=== PATIENT | female | born 1960 | race Caucasian/White ===

== ENCOUNTER 2020-11-13 09:15 | Outpatient (CLI) | payer MEDICARE, MEDICAID, SELFPAY | END 2020-11-13 09:16 | disposition home or self-care (01) | LOC: ANHBWCAUD 09:17 | PROVIDERS: PCP Family Medicine; Visit Provider Family Medicine | DX: H90.3 Sensorineural hearing loss, bilateral (principal) | CPT/HCPCS: 92557; 92567 ==

== ENCOUNTER 2021-04-02 09:00 | Outpatient (RCR) | payer MEDICAID, SELFPAY | END 2021-04-06 23:59 | disposition home or self-care (01) | LOC: ANHBWCAUD 09:00 | PROVIDERS: PCP Family Medicine; Visit Provider Family Medicine | DX: Z46.1 Encounter for fitting and adjustment of hearing aid (principal) | CPT/HCPCS: 99199; V5160; V5261; V5264 ==

== ENCOUNTER 2021-06-09 08:47 | Outpatient (RCR) | payer MEDICAID, SELFPAY | END 2021-09-07 23:59 | disposition home or self-care (01) | LOC: ANHBWCAUD 08:47 | PROVIDERS: PCP Family Medicine; Visit Provider Family Medicine | DX: Z46.1 Encounter for fitting and adjustment of hearing aid (principal) | CPT/HCPCS: 99199 ==

== ENCOUNTER 2021-12-15 08:39 | Outpatient (CLI) | payer MEDICARE, MEDICAID, SELFPAY | END 2021-12-15 08:40 | disposition home or self-care (01) | PROVIDERS: PCP Family Medicine; Visit Provider Family Medicine | DX: H90.3 Sensorineural hearing loss, bilateral (principal) | CPT/HCPCS: 92557; 92567 ==

== ENCOUNTER 2022-04-02 10:14 | Outpatient (RCR) | payer MEDICARE, MEDICAID, SELFPAY | END 2022-07-01 23:59 | disposition home or self-care (01) | LOC: ANHBWCAUD 10:14 | PROVIDERS: PCP Family Medicine; Visit Provider Family Medicine | DX: Z46.1 Encounter for fitting and adjustment of hearing aid (principal) | CPT/HCPCS: 99199 ==

== ENCOUNTER 2022-11-30 13:28 | Outpatient (CLI) | payer MEDICARE, MEDICAID, SELFPAY | END 2022-11-30 13:29 | disposition home or self-care (01) | PROVIDERS: PCP Family Medicine; Visit Provider Family Medicine | DX: H90.3 Sensorineural hearing loss, bilateral (principal) | CPT/HCPCS: 92557; 92567 ==

== ENCOUNTER 2024-04-04 10:19 | Outpatient (CLI) | payer MEDICARE, MEDICAID, SELFPAY | END 2024-04-04 10:20 | disposition home or self-care (01) | PROVIDERS: PCP Family Medicine; Visit Provider Family Medicine | DX: H90.3 Sensorineural hearing loss, bilateral (principal) | CPT/HCPCS: 92557; 92567 ==

== ENCOUNTER 2025-05-15 09:08 | Outpatient (CLI) | payer MEDICARE, MEDICAID, SELFPAY ==
--- OUTSIDE RECORDS SUMMARY | 2025-05-15 09:24 | XMS_ITS | Encounter Summary ---
Author Organization [facility] Address [address] [place] [address] Phone Care Team Providers Care Satellite Manager Name Role Phone Vanessa Hyman MD Primary Care Provider + [phone] Tapan Guo MD Unavailable Ted Reyes MD Primary Care Provider [phone] Nani Cloud MD Primary Care Provider + [phone] Provider, None Primary Care Provider John Villatoro MD Primary Care Provider [phone] Encounter Details Date Type Department Care Team (Late st Contact Info) Description 06/16/2022 [facility] 1 [place] [id number] John Delgado MD [address] [place] [address] [address] [place] [address] Encounter for screening for COVID-19 Social History Tobacco Use Types Packs/Day Years Used Date Smoking Tobacco: Never Smokeless Tobacco: Never Alcohol Use Standard Drinks/Week Comments No 0 (1 standard drink = 0.6 oz pur e alcohol) Comments No Sex and Gender Information Value Date Recorded Sex Assigned at Not on file Legal Sex Female 10:37 PM CDT Gender Identity Not on file Sexual Orientation Not on file documented as of this encounter Plan of Treatment Upcoming Encounters Date Type Department Care Team (Late st Contact Info) Description 08/05/2025 2:45 PM CDT [facility] [address] [place] [address] John Delgado MD [address] [place] [address] [address] [place] [address] Discharge Disposition: Discharged to home or Selfcare documented as of this encounter Procedures Procedure Name Priority Date/Time Associated Diagnosis Comments SARS-COV-2 BY MOLECULAR Routine 06/16/2022 7:55 AM CDT Encounter for screening for COVID-19 documented in this encounter Results * SARS-COV-2 BY MOLECULAR (06/16/2022 7:55 AM CDT) SARSCOV2 NOT DETECTED (Referen ce Range for this test is Not Detected ) [facility] THERMOF[facility] FAST DX 06/18/2022 8:08 AM CDT [facility] Comment:This test was perfor med by a RT-PCR method. Other Non-Phlebotomy Collection / Unknown 06/16/2022 7:55 AM CDT 06/16/2022 11:50 AM CDT Narrative [facility] - 06/18/2022 8:08 AM CDT Authorized Fact Sheets about this test for providers and patients are available at: https://www.fda.gov/medical-devices/vtwrkpkmy-nmherivieu-pxgsguf-devices/emergen -us e-authorizations us John Delgado MD MICROBIOLOGY - GENERAL ORDERAB LES Final Result [facility] [address] [place] [address], documented in this encounter Visit Diagnoses Diagnosis Encounter for screening for COVID-19 documented in this encounter Additional Health Concerns Infection Onset Date Last Indicated Resolved Time COVID - 19 03/03/2022 09/01/2022 09/08/2022 8:21 AM IMPROVEMENT AUDITOR COVID - 19 10/20/2022 01/05/2023 01/15/2023 12:1 6 AM CDT documented as of this encounter Care Teams Satellite Manager Relationship Specialty Start Date End Date Vanessa Hyman MD PCP - General Family Medicine 09/01/15 10/23/22 Ted Reyes MD #[address] [address] PCP - General Family Medicine 10/24/22 12/08/23 Nani Cloud MD [address] [place] [address] PCP - General Family Medicine 02/09/24 01/10/25 Provider, None [place] PCP - General 03/25/25 04/10/25 John Delgado MD [address] [place] [address] [address] [place] [address] PCP - General Family Medicine 04/11/25 Tapan Guo MD #[address] [address] Consulting Physician Colon and Rectal Surgery 09/21/22 documented as of this encounter
--- OUTSIDE RECORDS SUMMARY | 2025-05-15 09:24 | XMS_ITS | Encounter Summary ---
Author Organization [facility] Address [address] [place] [address] Phone Care Team Providers Care Social Sciences Instructor Name Role Phone Vanessa Hyman MD Primary Care Provider + [phone] Tapan Guo MD Unavailable Ted Reyes MD Primary Care Provider [phone] Nani Cloud MD Primary Care Provider + [phone] Provider, None Primary Care Provider John Villatoro MD Primary Care Provider [phone] Encounter Details Date Type Department Care Team (Late st Contact Info) Description 03/17/2022 [facility] 1 [place] [phone] John Delgado MD [address] [place] [address] 210 [place] [address] Encounter for screening for COVID-19 Social History [...] Info) Description 08/05/2025 2:45 PM CDT [facility] [address] [place] [address] John Delgado MD [address] [place] [address] [address] [place] [address] Discharge Disposition: Discharged to home or Selfcare documented as of this encounter Procedures Procedure Name Priority Date/Time Associated Diagnosis Comments SARS-COV-2 BY MOLECULAR Routine 03/17/2022 8:54 AM CDT Encounter for screening for COVID-19 documented in this encounter Results * SARS-COV-2 BY MOLECULAR (03/17/2022 8:54 AM CDT) SARSCOV2 NOT DETECTED (Referen ce Range for this test is Not Detected ) [facility] THERMOFISHER FAST DX 03/18/2022 2:01 PM CDT [facility] Comment:This test was perfor med by a RT-PCR method. Other Non-Phlebotomy Collection / Unknown 03/17/2022 8:54 AM CDT 03/17/2022 11:14 AM CDT Narrative [facility] - 03/18/2022 2:01 PM CDT Authorized Fact Sheets about this test for providers and patients are available at: https://www.fda.gov/medical-devices/aymowmiuf-gcxpbistqm-tygtoyg-devices/emergen -us e-authorizations us John Delgado MD MICROBIOLOGY - GENERAL ORDERAB LES Final Result [facility] [address] [place] [address], documented in this encounter Visit Diagnoses Diagnosis Encounter for screening for COVID-19 documented in this encounter Additional Health Concerns Infection Onset Date Last Indicated Resolved Time COVID - 19 03/03/2022 09/01/2022 09/08/2022 8:21 AM PATROL AGENT COVID - 19 10/20/2022 01/05/2023 01/15/2023 12:1 6 AM CDT documented as of this encounter Care Teams Social Sciences Instructor Relationship Specialty Start Date End Date Vanessa Hyman MD PCP - General Family Medicine 09/01/15 10/23/22 Ted Reyes MD #[address] [address] PCP - General Family Medicine 10/24/22 12/08/23 Nani Cloud MD [address] [place] [address] PCP - General Family Medicine 02/09/24 01/10/25 Provider, None [place] PCP - General 03/25/25 04/10/25 John Delgado MD [address] [place] [address] [address] [place] [address] PCP - General Family Medicine 04/11/25 Tapan Guo MD #[address] [address] Consulting Physician Colon and Rectal Surgery 09/21/22 documented as of this encounter
--- OUTSIDE RECORDS SUMMARY | 2025-05-15 09:24 | XMS_ITS | Encounter Summary ---
Author Organization [facility] Address [address] [place] [address] Phone Care Team Providers Care Reproductive Surgeon Name Role Phone Tapan Guo MD Unavailable Ted Reyes MD Primary Care Provider [phone] Nani Cloud MD Primary Care Provider [phone] Provider, None Primary Care Provider John Villatoro MD Primary Care Provider [phone] Encounter Details Date Type Department Care Team (Late st Contact Info) Description 11/03/2022 Lab Requisition [facility] Laboratory Services 1 [place] [address] John Delgado MD [address] [place] [address] [address] [place] [address] Encounter for screening for COVID-19 Social History [...] Info) Description 08/05/2025 2:45 PM CDT [facility]ment [facility] [address] [place] [address] John Delgado MD [address] [facility] [address] [place] [address] Discharge Disposition: Discharged to home or Selfcare documented as of this encounter Procedures Procedure Name Priority Date/Time Associated Diagnosis Comments SARS-COV-2 BY MOLECULAR Routine 11/03/2022 12:40 PM PYROMETER OPERATOR Encounter for screening for COVID-19 documented in this encounter Results * SARS-COV-2 BY MOLECULAR (11/03/2022 12:40 PM PYROMETER OPERATOR) SARSCOV2 NOT DETECTED (Referen ce Range for this test is Not Detected ) [facility] THERMOFISHER FAST DX 11/03/2022 10:53 PM PYROMETER OPERATOR [facility] Comment:This test was perfor med by a RT-PCR method. Other Non-Phlebotomy Collection / Unknown 11/03/2022 12:40 PM PYROMETER OPERATOR 11/03/2022 2:06 PM PYROMETER OPERATOR Narrative [facility] - 11/03/2022 10:53 PM PYROMETER OPERATOR Authorized Fact Sheets about this test for providers and patients are available at: https://www.fda.gov/medical-devices/podalgivo-pfexwqgcmh-nuzmooq-devices/emergen -us e-authorizations John Delgado MD MICROBIOLOGY - GENERAL ORDERAB LES Final Result [facility] [address] [facility] [place] [address], documented in this encounter Visit Diagnoses Diagnosis Encounter for screening for COVID-19 documented in this encounter Additional Health Concerns Infection Onset Date Last Indicated Resolved Time COVID - 19 10/20/2022 01/05/2023 01/15/2023 12:1 6 AM CDT documented as of this encounter Care Teams Reproductive Surgeon Relationship Specialty Start Date End Date Ted Reyes MD [address] [place] [address] PCP - General Family Medicine 10/24/22 12/08/23 Nani Cloud MD [address] [place] [address] PCP - General Family Medicine 02/09/24 01/10/25 Provider, None [place] PCP - General 03/25/25 04/10/25 John Delgado MD [address] [facility] [address] [place] [address] PCP - General Family Medicine 04/11/25 Tapan Guo MD #2 [facility] [address] [place] [address] Consulting Physician Colon and Rectal Surgery 09/21/22 documented as of this encounter
--- OUTSIDE RECORDS SUMMARY | 2025-05-15 09:24 | XMS_ITS | Encounter Summary ---
Author Organization [facility] Address [address] [place] [address] Phone Care Team Providers Care Accounting Professor Name Role Phone Vanessa Hyman MD Primary Care Provider + [phone] Tapan Guo MD Unavailable Ted Reyes MD Primary Care Provider [phone] Nani Cloud MD Primary Care Provider + [phone] Provider, None Primary Care Provider John Villatoro MD Primary Care Provider [phone] Encounter Details Date Type Department Care Team (Late st Contact Info) Description 03/31/2022 [facility] 1 [place] [phone] John Delgado MD [address] [place] [address] [address] [place] [address] Encounter for screening for COVID-19 Social History [...] Info) Description 08/05/2025 2:45 PM CDT [facility] [address] [place] [address] John Delgado MD [address] [place] [address] [address] [place] [address] Discharge Disposition: Discharged to home or Selfcare documented as of this encounter Procedures Procedure Name Priority Date/Time Associated Diagnosis Comments SARS-COV-2 BY MOLECULAR Routine 03/31/2022 9:03 AM CDT Encounter for screening for COVID-19 documented in this encounter Results * SARS-COV-2 BY MOLECULAR (03/31/2022 9:03 AM CDT) SARSCOV2 NOT DETECTED (Referen ce Range for this test is Not Detected ) [facility] THERMOFISHER FAST DX 04/01/2022 6:49 AM CDT [facility] Comment:This test was perfor med by a RT-PCR method. Other Non-Phlebotomy Collection / Unknown 03/31/2022 9:03 AM CDT 03/31/2022 9:02 PM CDT Narrative [facility] - 04/01/2022 6:49 AM CDT Authorized Fact Sheets about this test for providers and patients are available at: https://www.fda.gov/medical-devices/xwdlsjafe-wpyecjrlhq-tlwezfs-devices/emergen -us e-authorizations us John Delgado MD MICROBIOLOGY - GENERAL ORDERAB LES Final Result [facility] [address] [place] [address], documented in this encounter Visit Diagnoses Diagnosis Encounter for screening for COVID-19 documented in this encounter Additional Health Concerns Infection Onset Date Last Indicated Resolved Time COVID - 19 03/03/2022 09/01/2022 09/08/2022 8:21 AM LARGE SHEETFED PRESS OPERATOR COVID - 19 10/20/2022 01/05/2023 01/15/2023 12:1 6 AM CDT documented as of this encounter Care Teams Accounting Professor Relationship Specialty Start Date End Date Vanessa Hyman MD PCP - General Family Medicine 09/01/15 10/23/22 Ted Reyes MD #[address] [address] PCP - General Family Medicine 10/24/22 12/08/23 Nani Cloud MD [address] [place] [address] PCP - General Family Medicine 02/09/24 01/10/25 Provider, None [place] PCP - General 03/25/25 04/10/25 John Delgado MD [address] [place] [address] [address] [place] [address] PCP - General Family Medicine 04/11/25 Tapan Guo MD #[address] [address] Consulting Physician Colon and Rectal Surgery 09/21/22 documented as of this encounter
--- OUTSIDE RECORDS SUMMARY | 2025-05-15 09:24 | XMS_ITS | Encounter Summary ---
Author Organization [facility] Address [address] [place] [address] Phone Care Team Providers Care Crap Game Box Person Name Role Phone Vanessa Hyman MD Primary Care Provider + [phone] Tapan Guo MD Unavailable Ted Reyes MD Primary Care Provider [phone] Nani Cloud MD Primary Care Provider + [phone] Provider, None Primary Care Provider John Villatoro MD Primary Care Provider [phone] Encounter Details Date Type Department Care Team (Late st Contact Info) Description 05/12/2022 [facility] 1 [place] [phone] John Delgado MD [address] [place] [address] [address] [place] [address] Encounter for screening for COVID-19 Social History [...] Info) Description 08/05/2025 2:45 PM CDT [facility] [address] [place] [address] John Delgado MD [address] [place] [address] [address] [place] [address] Discharge Disposition: Discharged to home or Selfcare documented as of this encounter Procedures Procedure Name Priority Date/Time Associated Diagnosis Comments SARS-COV-2 BY MOLECULAR Routine 05/12/2022 8:28 AM CDT Encounter for screening for COVID-19 documented in this encounter Results * SARS-COV-2 BY MOLECULAR (05/12/2022 8:28 AM CDT) SARSCOV2 NOT DETECTED (Referen ce Range for this test is Not Detected ) [facility] THERMOFISH[facility] FAST DX 05/13/2022 7:37 AM CDT [facility] Comment:This test was perfor med by a RT-PCR method. Other Non-Phlebotomy Collection / Unknown 05/12/2022 8:28 AM CDT 05/12/2022 1:51 PM CDT Narrative [facility] - 05/13/2022 7:37 AM CDT Authorized Fact Sheets about this test for providers and patients are available at: https://www.fda.gov/medical-devices/yiemppqnu-otkxkjxpfx-vcnxehb-devices/emergen -us e-authorizations us John Delgado MD MICROBIOLOGY - GENERAL ORDERAB LES Final Result [facility] [address] [place] [address], documented in this encounter Visit Diagnoses Diagnosis Encounter for screening for COVID-19 documented in this encounter Additional Health Concerns Infection Onset Date Last Indicated Resolved Time COVID - 19 03/03/2022 09/01/2022 09/08/2022 8:21 AM SAP CRM DEVELOPER COVID - 19 10/20/2022 01/05/2023 01/15/2023 12:1 6 AM CDT documented as of this encounter Care Teams Crap Game Box Person Relationship Specialty Start Date End Date Vanessa Hyman MD PCP - General Family Medicine 09/01/15 10/23/22 Ted Reyes MD #[address] [address] PCP - General Family Medicine 10/24/22 12/08/23 Nani Cloud MD [address] [place] [address] PCP - General Family Medicine 02/09/24 01/10/25 Provider, None [place] PCP - General 03/25/25 04/10/25 John Delgado MD [address] [place] [address] [address] [place] [address] PCP - General Family Medicine 04/11/25 Tapan Guo MD #[address] [address] Consulting Physician Colon and Rectal Surgery 09/21/22 documented as of this encounter
--- OUTSIDE RECORDS SUMMARY | 2025-05-15 09:24 | XMS_ITS | Encounter Summary ---
Author Organization [facility] Address [address] [place] [address] Phone Care Team Providers Care Brands Editor Name Role Phone Vanessa Hyman MD Primary Care Provider + [phone] Tapan Guo MD Unavailable Ted Reyes MD Primary Care Provider [phone] Nani Cloud MD Primary Care Provider + [phone] Provider, None Primary Care Provider John Villatoro MD Primary Care Provider [phone] Encounter Details Date Type Department Care Team (Late st Contact Info) Description [facility] 1 [place] [phone] John Delgado MD [address] [place] [address] 210 [place] [address] Encounter for screening for COVID-19 Social History [...] Info) Description 08/05/2025 2:45 PM CDT [facility] [address] [place] [address] John Delgado MD [address] [place] [address] [address] [place] [address] Discharge Disposition: Discharged to home or Selfcare documented as of this encounter Procedures Procedure Name Priority Date/Time Associated Diagnosis Comments SARS-COV-2 BY MOLECULAR Routine 11/18/2021 8:09 AM JANITORIAL SUPERVISOR Encounter for screening for COVID-19 documented in this encounter Results * SARS-COV-2 BY MOLECULAR (11/18/2021 8:09 AM JANITORIAL SUPERVISOR) SARSCOV2 NOT DETECTED (Referen ce Range for this test is Not Detected ) [facility] THERMOFISHER FAST DX 11/19/2021 11:10 AM JANITORIAL SUPERVISOR [facility] Comment:This test was perfor med by a RT-PCR method. Other Non-Phlebotomy Collection / Unknown 11/18/2021 8:09 AM JANITORIAL SUPERVISOR 11/18/2021 11:57 AM JANITORIAL SUPERVISOR Narrative [facility] - 11/19/2021 11:10 AM JANITORIAL SUPERVISOR Authorized Fact Sheets about this test for providers and patients are available at: https://www.fda.gov/medical-devices/qhsysttdo-apdfllwwsn-enxtlih-devices/emergen -us e-authorizations us John Delgado MD MICROBIOLOGY - GENERAL ORDERAB LES Final Result [facility] [address] [place] [address], documented in this encounter Visit Diagnoses Diagnosis Encounter for screening for COVID-19 documented in this encounter Additional Health Concerns Infection Onset Date Last Indicated Resolved Time COVID - 19 07/15/2021 12/02/2021 12/02/2021 11:4 9 PM JANITORIAL SUPERVISOR COVID - 19 Confirmed 12/02/2021 12/02/2021 022 12:16 AM JANITORIAL SUPERVISOR COVID - 19 12/16/2021 12/16/2021 01/05/2022 12:1 8 AM CDT COVID - 19 03/03/2022 09/01/2022 09/08/2022 8:21 AM JANITORIAL SUPERVISOR COVID - 19 10/20/2022 01/05/2023 01/15/2023 12:1 6 AM CDT documented as of this encounter Care Teams Brands Editor Relationship Specialty Start Date End Date Vanessa Hyman MD PCP - General Family Medicine 09/01/15 10/23/22 Ted Reyes MD #[address] [address] PCP - General Family Medicine 10/24/22 12/08/23 aNni Cloud MD [address] [place] [address] PCP - General Family Medicine 02/09/24 01/10/25 Provider, None [place] PCP - General 03/25/25 04/10/25 John Delgado MD [address] [place] [address] [address] [place] [address] PCP - General Family Medicine 04/11/25 Tapan Guo MD #[address] [address] Consulting Physician Colon and Rectal Surgery 09/21/22 documented as of this encounter
--- OUTSIDE RECORDS SUMMARY | 2025-05-15 09:24 | XMS_ITS | Encounter Summary ---
Author Organization [facility] Address [address] [place] [address] Phone Care Team Providers Care Bridge Repairer Name Role Phone Vanessa Hyman MD Primary Care Provider + [phone] Tapan Guo MD Unavailable Ted Reyes MD Primary Care Provider [phone] Nani Cloud MD Primary Care Provider + [phone] Provider, None Primary Care Provider John Villatoro MD Primary Care Provider [phone] Encounter Details Date Type Department Care Team (Late st Contact Info) Description 04/07/2022 [facility] 1 [place] [phone] John Delgado MD [address] [place] [address] [address] [place] [address] Encounter for screening for COVID-19 Social History [...] [facility] Mammography [address] [place] [address] John Delgado MD [address] [place] [address] [address] [place] [address] Discharge Disposition: Discharged to home or Selfcare documented as of this encounter Procedures Procedure Name Priority Date/Time Associated Diagnosis Comments SARS-COV-2 BY MOLECULAR Routine 04/07/2022 8:42 AM CDT Encounter for screening for COVID-19 documented in this encounter Results * SARS-COV-2 BY MOLECULAR (04/07/2022 8:42 AM CDT) SARSCOV2 NOT DETECTED (Referen ce Range for this test is Not Detected ) [facility] THERMOFISHER FAST DX 04/08/2022 8:31 AM CDT [facility] Comment:This test was perfor med by a RT-PCR method. Other Non-Phlebotomy Collection / Unknown 04/07/2022 8:42 AM CDT 04/07/2022 9:24 AM CDT Narrative [facility] - 04/08/2022 8:31 AM CDT Authorized Fact Sheets about this test for providers and patients are available at: https://www.fda.gov/medical-devices/ipewyrjvj-eidgwptlgj-qbuvkbg-devices/emergen -us e-authorizations us John Delgado MD MICROBIOLOGY - GENERAL ORDERAB LES Final Result [facility] [address] [place] [address], documented in this encounter Visit Diagnoses Diagnosis Encounter for screening for COVID-19 documented in this encounter Additional Health Concerns Infection Onset Date Last Indicated Resolved Time COVID - 19 03/03/2022 09/01/2022 09/08/2022 8:21 AM CORSET FITTER COVID - 19 10/20/2022 01/05/2023 01/15/2023 12:1 6 AM CDT documented as of this encounter Care Teams Bridge Repairer Relationship Specialty Start Date End Date Vanessa Hyman MD PCP - General Family Medicine 09/01/15 10/23/22 Ted Reyes MD #[address] [address] PCP - General Family Medicine 10/24/22 12/08/23 Nani Cloud MD [address] [place] [address] PCP - General Family Medicine 02/09/24 01/10/25 Provider, None [place] PCP - General 03/25/25 04/10/25 John Delgado MD [address] [place] [address] [address] [place] [address] PCP - General Family Medicine 04/11/25 Tapan Guo MD #[address] [address] Consulting Physician Colon and Rectal Surgery 09/21/22 documented as of this encounter
--- OUTSIDE RECORDS SUMMARY | 2025-05-15 09:24 | XMS_ITS | Encounter Summary ---
Author Organization [facility] Address [address] [place] [address] Phone Care Team Providers Care Pilot Fuel Engineer Name Role Phone Vanessa Hyman MD Primary Care Provider + [phone] Tapan Guo MD Unavailable Ted Reyes MD Primary Care Provider [phone] Nani Cloud MD Primary Care Provider + [phone] Provider, None Primary Care Provider John Villatoro MD Primary Care Provider [phone] Encounter Details Date Type Department Care Team (Late st Contact Info) Description 06/30/2022 [facility] 1 [place] [id number] John Delgado MD [address] [place] [address] [address] [place] [address] Encounter for screening for COVID-19 Social History [...] Info) Description 08/05/2025 2:45 PM CDT [facility]ment [facility] [address] [place] [address] John Delgado MD [address] [place] [address] [address] [place] [address] Discharge Disposition: Discharged to home or Selfcare documented as of this encounter Procedures Procedure Name Priority Date/Time Associated Diagnosis Comments SARS-COV-2 BY MOLECULAR Routine 06/30/2022 8:05 AM CDT Encounter for screening for COVID-19 documented in this encounter Results * SARS-COV-2 BY MOLECULAR (06/30/2022 8:05 AM CDT) SARSCOV2 NOT DETECTED (Referen ce Range for this test is Not Detected ) [facility] THERMOFISHER FAST DX 07/01/2022 8:42 AM CDT [facility] Comment:This test was perfor med by a RT-PCR method. Other COVID 19 Home Health/ Long-Term Facility Collection / Unknown 06/30/2022 8:05 AM CDT 06/30/2022 1:36 PM CDT Narrative [facility] - 07/01/2022 8:42 AM CDT Authorized Fact Sheets about this test for providers and patients are available at: https://www.fda.gov/medical-devices/gtqmltpjs-zdriuwmqlu-dytptnf-devices/emergen cy-us e-authorizations us John Delgado MD MICROBIOLOGY - GENERAL ORDERAB LES Final Result [facility] [address] [place] [address], documented in this encounter Visit Diagnoses Diagnosis Encounter for screening for COVID-19 documented in this encounter Additional Health Concerns Infection Onset Date Last Indicated Resolved Time COVID - 19 03/03/2022 09/01/2022 09/08/2022 8:21 AM MUD PLANT OPERATOR COVID - 19 10/20/2022 01/05/2023 01/15/2023 12:1 6 AM CDT documented as of this encounter Care Teams Pilot Fuel Engineer Relationship Specialty Start Date End Date Vanessa Hyman MD PCP - General Family Medicine 09/01/15 10/23/22 Ted Reyes MD #[address] [address] PCP - General Family Medicine 10/24/22 12/08/23 Nani Cloud MD [address] [facility] [place] [address] PCP - General Family Medicine 02/09/24 01/10/25 Provider, None [place] PCP - General 03/25/25 04/10/25 John Delgado MD [address] [place] [address] [address] [place] [address] PCP - General Family Medicine 04/11/25 Tapan Guo MD #[address] [address] Consulting Physician Colon and Rectal Surgery 09/21/22 documented as of this encounter
--- OUTSIDE RECORDS SUMMARY | 2025-05-15 09:24 | XMS_ITS | Encounter Summary ---
Author Organization [facility] Address [address] [place] [address] Phone Care Team Providers Care Oil And Gas Exploration Technician Name Role Phone Vanessa Hyman MD Primary Care Provider + [phone] Tapan Guo MD Unavailable Ted Reyes MD Primary Care Provider [phone] Nani Cloud MD Primary Care Provider + [phone] Provider, None Primary Care Provider John Villatoro MD Primary Care Provider [phone] Encounter Details Date Type Department Care Team (Late st Contact Info) Description 08/11/2022 [facility] 1 [place] [phone] John Delgado MD [address] [place] [address] [address] [place] [address] Encounter for screening for COVID-19 Social History [...] [facility] M[facility] [address] [place] [place] [address] John Delgado MD [address] [place] [address] [address] [place] [address] Discharge Disposition: Discharged to home or Selfcare documented as of this encounter Procedures Procedure Name Priority Date/Time Associated Diagnosis Comments SARS-COV-2 BY MOLECULAR Routine 08/11/2022 10:07 AM CDT Encounter for screening for COVID-19 documented in this encounter Results * SARS-COV-2 BY MOLECULAR (08/11/2022 10:07 AM CDT) SARSCOV2 NOT DETECTED (Referen ce Range for this test is Not Detected ) [facility] THERMOFISHER FAST DX 08/11/2022 11:59 PM CDT [facility] Comment:This test was perfor med by a RT-PCR method. Other Non-Phlebotomy Collection / Unknown 08/11/2022 10:07 AM CDT 08/11/2022 11:25 AM CDT Narrative [facility] - 08/11/2022 11:59 PM CDT Authorized Fact Sheets about this test for providers and patients are available at: https://www.fda.gov/medical-devices/oepeeopwz-lfvijkkbyl-aipyteg-devices/emergen -us e-authorizations us John Delgado MD MICROBIOLOGY - GENERAL ORDERAB LES Final Result [facility] [address] [place] [address], documented in this encounter Visit Diagnoses Diagnosis Encounter for screening for COVID-19 documented in this encounter Additional Health Concerns Infection Onset Date Last Indicated Resolved Time COVID - 19 03/03/2022 09/01/2022 09/08/2022 8:21 AM BAND SAWYER COVID - 19 10/20/2022 01/05/2023 01/15/2023 12:1 6 AM CDT documented as of this encounter Care Teams Oil And Gas Exploration Technician Relationship Specialty Start Date End Date Vanessa Hyman MD PCP - General Family Medicine 09/01/15 10/23/22 Ted Reyes MD #[address] [address] PCP - General Family Medicine 10/24/22 12/08/23 Nani Cloud MD [address] [place] [address] PCP - General Family Medicine 02/09/24 01/10/25 Provider, None [place] PCP - General 03/25/25 04/10/25 John Delgado MD [address] [place] [address] [address] [place] [address] PCP - General Family Medicine 04/11/25 Tapan Guo MD #[address] [address] Consulting Physician Colon and Rectal Surgery 09/21/22 documented as of this encounter
--- OUTSIDE RECORDS SUMMARY | 2025-05-15 09:24 | XMS_ITS | Encounter Summary ---
Author Organization [facility] Address [address] [place] [address] Phone Care Team Providers Care Medical Researcher Name Role Phone Tapan Guo MD Unavailable Ted Reyes MD Primary Care Provider [phone] Nani Cloud MD Primary Care Provider [phone] Provider, None Primary Care Provider John Villatoro MD Primary Care Provider [phone] Encounter Details Date Type Department Care Team (Late st Contact Info) Description 12/01/[address] [facility] Laboratory Services 1 [place] [address] John Delgado MD [address] [place] [address] [address] [place] [address] Encounter for screening for COVID-19 [...] Info) Description 08/05/2025 2:45 PM CDT [facility] [address] [place] [phone] John Delgado MD [address] [facility] [address] [place] [address] Discharge Disposition: Discharged to home or Selfcare documented as of this encounter Procedures Procedure Name Priority Date/Time Associated Diagnosis Comments SARS-COV-2 BY MOLECULAR Routine 12/01/2022 8:23 AM RECEIVING ROOM CLERK Encounter for screening for COVID-19 documented in this encounter Results * SARS-COV-2 BY MOLECULAR (12/01/2022 8:23 AM RECEIVING ROOM CLERK) SARSCOV2 NOT DETECTED (Referen ce Range for this test is Not Detected ) [facility] THERMOFISHER FAST DX 12/01/2022 7:20 PM RECEIVING ROOM CLERK [facility] Comment:This test was perfor med by a RT-PCR method. Other Non-Phlebotomy Collection / Unknown 12/01/2022 8:23 AM RECEIVING ROOM CLERK 12/01/2022 10:23 AM RECEIVING ROOM CLERK Narrative [facility] - 12/01/2022 7:20 PM RECEIVING ROOM CLERK Authorized Fact Sheets about this test for providers and patients are available at: https://www.fda.gov/medical-devices/cdmuxfrok-ozzsjwvbur-wupbiuz-devices/emergen -us e-authorizations John Delgado MD MICROBIOLOGY - GENERAL ORDERAB LES Final Result [facility] [address] [facility] [place] [address], documented in this encounter Visit Diagnoses Diagnosis Encounter for screening for COVID-19 documented in this encounter Additional Health Concerns Infection Onset Date Last Indicated Resolved Time COVID - 19 10/20/2022 01/05/2023 01/15/2023 12:1 6 AM CDT documented as of this encounter Care Teams Medical Researcher Relationship Specialty Start Date End Date Ted Reyes MD [address] [place] [address] PCP - General Family Medicine 10/24/22 12/08/23 Nani Clodu MD [address] [place] [address] PCP - General Family Medicine 02/09/24 01/10/25 Provider, None [place] PCP - General 03/25/25 04/10/25 John Delgado MD [address] [facility] [address] [place] [address] PCP - General Family Medicine 04/11/25 Tapan Guo MD #2 [facility] [address] [place] [address] Consulting Physician Colon and Rectal Surgery 09/21/22 documented as of this encounter
--- OUTSIDE RECORDS SUMMARY | 2025-05-15 09:24 | XMS_ITS | Encounter Summary ---
Author Organization [facility] Address [address] [place] [address] Phone Care Team Providers Care Carpenter Rough Name Role Phone Vanessa Hyman MD Primary Care Provider + [phone] Tapan Guo MD Unavailable Ted Reyes MD Primary Care Provider [phone] Nani Cloud MD Primary Care Provider + [phone] Provider, None Primary Care Provider John Villatoro MD Primary Care Provider [phone] Encounter Details Date Type Department Care Team (Late st Contact Info) Description 07/21/2022 Lab Requisition [facility] Laboratory Services 1 [place] [address] John Delgado MD [address] [place] [address] [address] [place] [address] Encounter for screening for COVID-19 Social History [...] on file Sexual Orientation Not on file COVID-19 Exposure Response Date Recorded In the last 10 days, have yo u been in contact with someone who was confirmed or suspected to have Coronavirus/COVID-19? No / Unsure 07/04/2022 7:10 AM CDT documented as of this encounter Plan of Treatment Upcoming Encounters Date Type Department Care Team (Late st Contact Info) Description 08/05/2025 2:45 PM CDT [facility] [address] [place] [phone] John Delgado MD [address] [place] [address] [address] [place] [address] Discharge Disposition: Discharged to home or Selfcare documented as of this encounter Procedures Procedure Name Priority Date/Time Associated Diagnosis Comments SARS-COV-2 BY MOLECULAR Routine 07/21/2022 10:08 AM CDT Encounter for screening for COVID-19 documented in this encounter Results * SARS-COV-2 BY MOLECULAR (07/21/2022 10:08 AM CDT) SARSCOV2 NOT DETECTED (Referen ce Range for this test is Not Detected ) [facility] THERMOFISHER FAST DX 07/22/2022 12:09 AM CDT [facility] Comment:This test was perfor med by a RT-PCR method. Other Non-Phlebotomy Collection / Unknown 07/21/2022 10:08 AM CDT 07/21/2022 11:59 AM CDT Narrative [facility] - 07/22/2022 12:09 AM CDT Authorized Fact Sheets about this test for providers and patients are available at: https://www.fda.gov/medical-devices/cqfrqbclg-ggyscumvnt-zzwohtp-devices/emergen cy-us e-authorizations us John Delgado MD MICROBIOLOGY - GENERAL ORDERAB LES Final Result [facility] [address] [place] [address], [place] documented in this encounter Visit Diagnoses Diagnosis Encounter for screening for COVID-19 documented in this encounter Additional Health Concerns Infection Onset Date Last Indicated Resolved Time COVID - 19 03/03/2022 09/01/2022 09/08/2022 8:21 AM ROLLING MACHINE TENDER COVID - 19 10/20/2022 01/05/2023 01/15/2023 12:1 6 AM CDT documented as of this encounter Care Teams Carpenter Rough Relationship Specialty Start Date End Date Vanessa Hyman MD PCP - General Family Medicine 09/01/15 10/23/22 Ted Reyes MD #[address] [address] PCP - General Family Medicine 10/24/22 12/08/23 Nani Cloud MD [address] [place] [address] PCP - General Family Medicine 02/09/24 01/10/25 Provider, None [place] PCP - General 03/25/25 04/10/25 John Delgado MD [address] [place] [address] [address] [place] [address] PCP - General Family Medicine 04/11/25 Tapan Guo MD #[address] [address] Consulting Physician Colon and Rectal Surgery 09/21/22 documented as of this encounter
--- OUTSIDE RECORDS SUMMARY | 2025-05-15 09:24 | XMS_ITS | Encounter Summary ---
Author Organization [facility] Address [address] [place] [address] Phone Care Team Providers Care Matrix Supervisor Name Role Phone Tapan Guo MD Unavailable Ted Reyes MD Primary Care Provider [phone] Nani Cloud MD Primary Care Provider [phone] Provider, None Primary Care Provider John Villatoro MD Primary Care Provider [phone] Encounter Details Date Type Department Care Team (Late st Contact Info) Description 12/29/2022 Lab Requisition [facility] Laboratory Services 1 [place] [address] John Delgado MD [address] [place] [address] [address] [place] [address] Encounter for screening for COVID-19 [...] suspected to have Coronavirus/COVID-19? No / Unsure 12/06/2022 10:30 AM TWISTING OPERATOR documented as of this encounter Plan of Treatment Upcoming Encounters Date Type Department Care Team (Late st Contact Info) Description 08/05/2025 2:45 PM CDT [facility] [address] [place] [address] John Delgado MD [address] [place] [address] [address] [place] [address] Discharge Disposition: Discharged to home or Selfcare documented as of this encounter Procedures Procedure Name Priority Date/Time Associated Diagnosis Comments SARS-COV-2 BY MOLECULAR Routine 12/29/2022 8:25 AM TWISTING OPERATOR Encounter for screening for COVID-19 documented in this encounter Results * SARS-COV-2 BY MOLECULAR (12/29/2022 8:25 AM TWISTING OPERATOR) SARSCOV2 NOT DETECTED (Referen ce Range for this test is Not Detected ) [facility] THERMOFISHER FAST DX 12/29/2022 7:37 PM TWISTING OPERATOR [facility] Comment:This test was perfor med by a RT-PCR method. Other No Phlebotomy Charged / Unknown 12/29/2022 8:25 AM TWISTING OPERATOR 12/29/2022 9:57 AM TWISTING OPERATOR [facility]ative [facility] - 12/29/2022 7:37 PM TWISTING OPERATOR Authorized Fact Sheets about this test for providers and patients are available at: https://www.fda.gov/medical-devices/jxveosefm-idouduyhrx-gvdieyw-devices/emergen -us e-authorizations us John Delgado MD MICROBIOLOGY - GENERAL ORDERAB LES Final Result [facility] [address] [place] [address], documented in this encounter Visit Diagnoses Diagnosis Encounter for screening for COVID-19 documented in this encounter Additional Health Concerns Infection Onset Date Last Indicated Resolved Time COVID - 19 10/20/2022 01/05/2023 01/15/2023 12:1 6 AM CDT documented as of this encounter Care Teams Matrix Supervisor Relationship Specialty Start Date End Date Ted Reyes MD #[address] [address] PCP - General Family Medicine 10/24/22 12/08/23 Nani Cloud MD [address] [place] [address] PCP - General Family Medicine 02/09/24 01/10/25 Provider, None [place] PCP - General 03/25/25 04/10/25 John Delgado MD [address] [place] [address] [address] [place] [address] PCP - General Family Medicine 04/11/25 Tapan Guo MD #[address] [address] Consulting Physician Colon and Rectal Surgery 09/21/22 documented as of this encounter
--- OUTSIDE RECORDS SUMMARY | 2025-05-15 09:24 | XMS_ITS | Encounter Summary ---
Author Organization [facility] Address [address] [place] [address] Phone Care Team Providers Care Automatic Glove Former Name Role Phone Tapan Guo MD Unavailable Nani Cloud MD Primary Care Provider [phone] Provider, None Primary Care Provider John Villatoro MD Primary Care Provider [phone] Encounter Details Date Type Department Care Team (Late st Contact Info) Description 01/09/2025 Lab Requisition [facility] Laboratory Services 1 [place] [address] John Delgado MD [address] [place] [address] [address] [place] [address] Constipation, unspecified; Mild intellectual disabilities; Hypothyroidism, unspecified Social History Tobacco Use Types Packs/Day Years [...] Info) Description 08/05/2025 2:45 PM CDT [facility] 1 [place] [phone] John Delgado MD [address] [place] [address] [address] [place] [address] Discharge Disposition: Discharged to home or Selfcare documented as of this encounter Procedures Procedure Name Priority Date/Time Associated Diagnosis Comments CBC WITH AUTO DIFFERENTIAL Routine 01/09/2025 5:55 AM CDT Constipation, unspecified Mild intellectual disabilities Hypothyroidism, unspecified COMPLETE BLOOD COUNT (CBC) WITH DIFF Routine 01/09/2025 5:55 AM CDT Constipation, unspecified Mild intellectual disabilities Hypothyroidism, unspecified BASIC METABOLIC PANEL W/ CALCIUM TOTAL Routine 01/09/2025 5:55 AM CDT Constipation, unspecified Mild intellectual disabilities Hypothyroidism, unspecified documented in this encounter Results * CBC WITH AUTO DIFFERENTIAL (01/09/2025 5:55 AM CDT) WBC 6.73 4.00 - 12.00 10(3)/mcL 01/09/2025 8:33 AM CDT [facility] RBC 4.80 3.80 - 5.30 10(6)/mcL 01/09/2025 8:33 AM CDT [facility] HEMOGLOBIN (HGB) 14.1 12.0 - 15.8 g/dL 01/09/2025 8:33 AM CDT [facility] HEMATOCRIT (HCT) 44.3 36.0 - 47.0 % 01/09/2025 8:33 AM CDT [facility] MCV 92.3 82.0 - 96.0 fL 01/09/2025 8:33 AM CDT [facility] MCH 29.4 26.0 - 34.0 pg 01/09/2025 8:33 AM CDT [facility] MCHC 31.8 31.0 - 36.0 g/dL 01/09/2025 8:33 AM CDT [facility] PLATELET COUNT 268 140 - 440 10(3)/mcL 01/09/2025 8:33 AM CDT [facility] RDW 13.4 11.8 - 15.5 % 01/09/2025 8:33 AM CDT [facility] MPV 10.9 9.7 - 12.4 fL 01/09/2025 8:33 AM CDT [facility] NEUTROPHILS 49.3 47.0 - 73.0 % 01/09/2025 8:33 AM CDT [facility] LYMPHOCYTES 36.3 18.0 - 42.0 % 01/09/2025 8:33 AM CDT [facility] MONOCYTES 9.1 4.0 - 12.0 % 01/09/2025 8:33 AM CDT [facility] EOSINOPHILS 4.6 0.0 - 5.0 % 01/09/2025 8:33 AM CDT [facility] BASOPHILS 0.7 0.0 - 1.0 % 01/09/2025 8:33 AM CDT [facility] ABSOLUTE NEUTROPHILS 3.32 1.60 - 7.70 10(3)/[facility] 01/09/2025 8:33 AM CDT [facility] ABSOLUTE LYMPHOCYTES 2.44 1.30 - 3.20 10(3)/[facility] 01/09/2025 8:33 AM CDT [facility] ABSOLUTE MONOCYTES 0.61 0.20 - 1.00 10(3)/[facility] 01/09/2025 8:33 AM CDT [facility] ABSOLUTE EOSINOPHIL 0.31 0.00 - 0.40 10(3)/[facility] 01/09/2025 8:33 AM CDT [facility] ABSOLUTE BASOPHILS 0.05 0.00 - 0.10 10(3)/[facility] 01/09/2025 8:33 AM CDT [facility] NRBC PER 100 WBC 0 01[facility]10[facility]20 [facility] Blood Venipuncture / Unknown 01/09/2025 5:55 AM CDT 01/09/2025 7:58 AM CDT us John Delgado MD HEMATOLOGY ORDERABLES Final Re sult [facility] [address] [place] [address] * (ABNORMAL) BASIC METABOLIC PANEL W/ CALCIUM TOTAL (01/09/2025 5:55 AM CDT) SODIUM 140 136 - 145 mmol/L 01/09/2025 9:00 AM CDT [facility] POTASSIUM 4.7 3.5 - 5.1 mmol/L 01/09/2025 9:00 AM CDT [facility] CHLORIDE 105 98 - 107 mmol/L 01/09/2025 9:00 AM CDT [facility] CO2, VENOUS 26 22 - 30 mmol/L 01/09/2025 9:00 AM CDT [facility] ANION GAP 13.7 <18.0 mmol/L 01/09/2025 9:00 AM CDT [facility] GLUCOSE 84 70 - 99 mg/dL 01/09/2025 9:00 AM CDT [facility] BUN 19 10 - 20 mg/dL 01/09/2025 9:00 AM CDT [facility] CREATININE, BLOOD 0.81 0.60 - 1.00 mg/dL 01/09/2025 9:00 AM CDT [facility] BUN/CREATININE RATIO 23(H) 12 - 20 ratio 01/09/2025 9:00 AM CDT [facility] CALCIUM 9.1 8.7 - 10.5 mg/dL 01/09/2025 9:00 AM CDT [facility] GFR, ESTIMATED >60 >=60 01/09/2025 9:00 AM CDT [facility] Comment: Creatinine Clearance is the preferred criteria for selecting drug dose adjustments in renally impaired patients. The GFR is provided as additional pertinent clinical information. GFR is reported in mL/min/1.73 sq m. Calculation based on the Chronic Kidney Disease Epidemiology Collaboration (CKD- EPI) equation refit without adjustment for race. GFR, EST. >60 >=60 025 9:[address] AM [address] [facility] GFR, EST. NONAFRICAN >60 >=60 01/09/2025 9:00 AM CD[address] [facility] Blood Venipuncture / Unknown 01/09/2025 5:55 AM CDT 01/09/2025 7:58 AM CDT us John Delgado MD CHEMISTRY ORDERABLES Final Res ult [facility] [address] [place] [address] documented in this encounter Visit Diagnoses Diagnosis Constipation, unspecified Mild intellectual disabilities Hypothyroidism, unspecified documented in this encounter Care Teams Automatic Glove Former Relationship Specialty Start Date End Date Nani Cloud MD [address] [place] [address] PCP - General Family Medicine 02/09/24 01/10/25 Provider, None [place] PCP - General 03/25/25 04/10/25 John Delgado MD [address] [facility] [address] [place] [address] PCP - General Family Medicine 04/11/25 Tapan Guo MD [facility] [facility] [place] [address] [place] [address] Consulting Physician Colon and Rectal Surgery 09/21/22 documented as of this encounter
--- OUTSIDE RECORDS SUMMARY | 2025-05-15 09:24 | XMS_ITS | Encounter Summary ---
Author Organization [facility] Address [address] [place] [address] Phone Care Team Providers Care Hardwood Floor Installer Name Role Phone Tapan Guo MD Unavailable Ted Reyes MD Primary Care Provider [phone] Nani Cloud MD Primary Care Provider [phone] Provider, None Primary Care Provider John Villatoro MD Primary Care Provider Encounter Details Date Type Department Care Team (Late st Contact Info) Description 11/24/2022 Lab Requisition [facility] Laboratory Services 1 [place] [address] John Delgado MD [address] [place] [address] [address] [place] [address] Encounter for screening for COVID-19 [...] Info) Description 08/05/2025 2:45 PM CDT [facility] [address] [place] [address] John Delgado MD [address] [facility] [address] [place] [address] Discharge Disposition: Discharged to home or Selfcare documented as of this encounter Procedures Procedure Name Priority Date/Time Associated Diagnosis Comments SARS-COV-2 BY MOLECULAR Routine 11/24/2022 8:30 AM ANIMAL DAYCARE PROVIDER Encounter for screening for COVID-19 documented in this encounter Results * SARS-COV-2 BY MOLECULAR (11/24/2022 8:30 AM ANIMAL DAYCARE PROVIDER) SARSCOV2 NOT DETECTED (Referen ce Range for this test is Not Detected ) [facility] THERMOFISHER FAST DX 11/24/2022 10:10 PM ANIMAL DAYCARE PROVIDER [facility] Comment:This test was perfor med by a RT-PCR method. Other Non-Phlebotomy Collection / Unknown 11/24/2022 8:30 AM ANIMAL DAYCARE PROVIDER 11/24/2022 9:58 AM ANIMAL DAYCARE PROVIDER Narrative [facility] - 11/24/2022 10:10 PM ANIMAL DAYCARE PROVIDER Authorized Fact Sheets about this test for providers and patients are available at: https://www.fda.gov/medical-devices/ieyrzgqwc-fbkyfmnpto-opbsbgy-devices/emergen -us e-authorizations John Delgado MD MICROBIOLOGY - GENERAL ORDERAB LES Final Result [facility] [address] [facility] [place] [address], documented in this encounter Visit Diagnoses Diagnosis Encounter for screening for COVID-19 documented in this encounter Additional Health Concerns Infection Onset Date Last Indicated Resolved Time COVID - 19 10/20/2022 01/05/2023 01/15/2023 12:1 6 AM CDT documented as of this encounter Care Teams Hardwood Floor Installer Relationship Specialty Start Date End Date Ted Reyes MD [address] [place] [address] PCP - General Family Medicine 10/24/22 12/08/23 Nani Cloud MD [address] [place] [address] PCP - General Family Medicine 02/09/24 01/10/25 Provider, None [place] PCP - General 03/25/25 04/10/25 John Delgado MD [address] [facility] [address] [place] [address] PCP - General Family Medicine 04/11/25 Tapan Guo MD #2 [facility] NORI [facility] [address] [place] [address] Consulting Physician Colon and Rectal Surgery 09/21/22 documented as of this encounter
--- OUTSIDE RECORDS SUMMARY | 2025-05-15 09:24 | XMS_ITS | Encounter Summary ---
Author Organization [facility] Address [address] [place] [address] Phone Care Team Providers Care Drop Hammer Mechanic Name Role Phone Vanessa Hyman MD Primary Care Provider [phone] Tapan Guo MD Unavailable Ted Reyes MD Primary Care Provider [phone] Nani Cloud MD Primary Care Provider + [phone] Provider, None Primary Care Provider John Villatoro MD Primary Care Provider [phone] Encounter Details Date Type Department Care Team (Late st Contact Info) Description 05/05/2022 [facility] 1 [place] [id number] John Delgado MD [address] [place] [address] [address] [place] [address] Encounter for screening for COVID-19 Social History [...] Info) Description 08/05/2025 2:45 PM CDT [facility] [address] [place] [address] John Delgado MD [address] [place] [address] [address] [place] [address] Discharge Disposition: Discharged to home or Selfcare documented as of this encounter Procedures Procedure Name Priority Date/Time Associated Diagnosis Comments SARS-COV-2 BY MOLECULAR Routine 05/05/2022 8:19 AM CDT Encounter for screening for COVID-19 documented in this encounter Results * SARS-COV-2 BY MOLECULAR (05/05/2022 8:19 AM CDT) SARSCOV2 NOT DETECTED (Referen ce Range for this test is Not Detected ) [facility] THERMOFISHER FAST DX 05/06/2022 10:49 AM CDT [facility] Comment:This test was perfor med by a RT-PCR method. Other Non-Phlebotomy Collection / Unknown 05/05/2022 8:19 AM CDT 05/05/2022 10:44 AM CDT Narrative [facility] - 05/06/2022 10:49 AM CDT Authorized Fact Sheets about this test for providers and patients are available at: https://www.fda.gov/medical-devices/nucgaetmc-puxjjanzcm-estroqc-devices/emergen -us e-authorizations us John Delgado MD MICROBIOLOGY - GENERAL ORDERAB LES Final Result [facility] [address] [place] [address], documented in this encounter Visit Diagnoses Diagnosis Encounter for screening for COVID-19 documented in this encounter Additional Health Concerns Infection Onset Date Last Indicated Resolved Time COVID - 19 03/03/2022 09/01/2022 09/08/2022 8:21 AM READING INTERVENTION TEACHER COVID - 19 10/20/2022 01/05/2023 01/15/2023 12:1 6 AM CDT documented as of this encounter Care Teams Drop Hammer Mechanic Relationship Specialty Start Date End Date Vanessa Hyman MD PCP - General Family Medicine 09/01/15 10/23/22 Ted Reyes MD #[address] [address] PCP - General Family Medicine 10/24/22 12/08/23 Nani Cloud MD [address] [place] [address] PCP - General Family Medicine 02/09/24 01/10/25 Provider, None [place] PCP - General 03/25/25 04/10/25 John Delgado MD [address] [place] [address] [address] [place] [address] PCP - General Family Medicine 04/11/25 Tapan Guo MD #[address] [address] Consulting Physician Colon and Rectal Surgery 09/21/22 documented as of this encounter
--- OUTSIDE RECORDS SUMMARY | 2025-05-15 09:24 | XMS_ITS | Encounter Summary ---
Author Organization [facility] Address [address] [place] [address] Phone Care Team Providers Care Computer Operations Specialist Name Role Phone Tapan Guo MD Unavailable Ted Reyes MD Primary Care Provider Nani Cloud MD Primary Care Provider [phone] Provider, None Primary Care Provider John Villatoro MD Primary Care Provider [phone] Encounter Details Date Type Department Care Team (Late st Contact Info) Description 11/18/2022 Lab Requisition [facility] Laboratory Services 1 [place] [address] John Delgado MD [address] [place] [address] [address] [place] [address] Encounter for screening for COVID-19 [...] Description 08/05/2025 2:45 PM CDT [facility] [address] [place] [address] John Delgado MD [address] [facility] [address] [place] [address] Discharge Disposition: Discharged to home or Selfcare documented as of this encounter Procedures Procedure Name Priority Date/Time Associated Diagnosis Comments SARS-COV-2 BY MOLECULAR Routine 11/18/2022 8:40 AM TELECOM SPECIALIST Encounter for screening for COVID-19 documented in this encounter Results * SARS-COV-2 BY MOLECULAR (11/18/2022 8:40 AM TELECOM SPECIALIST) SARSCOV2 NOT DETECTED (Referen ce Range for this test is Not Detected ) [facility] THERMOFISHER FAST DX 11/18/2022 5:12 PM TELECOM SPECIALIST [facility] Comment:This test was perfor med by a RT-PCR method. Other Non-Phlebotomy Collection / Unknown 11/18/2022 8:40 AM TELECOM SPECIALIST 11/18/2022 10:13 AM TELECOM SPECIALIST Narrative [facility] - 11/18/2022 5:12 PM TELECOM SPECIALIST Authorized Fact Sheets about this test for providers and patients are available at: https://www.fda.gov/medical-devices/khibnfqzk-rqvfkwgmzm-wlegzcz-devices/emergen -us e-authorizations John Delgado MD MICROBIOLOGY - GENERAL ORDERAB LES Final Result [facility] [address] [place] [address], documented in this encounter Visit Diagnoses Diagnosis Encounter for screening for COVID-19 documented in this encounter Additional Health Concerns Infection Onset Date Last Indicated Resolved Time COVID - 19 10/20/2022 01/05/2023 01/15/2023 12:1 6 AM CDT documented as of this encounter Care Teams Computer Operations Specialist Relationship Specialty Start Date End Date Ted Reyes MD #[address] [place] [address] PCP - General Family Medicine 10/24/22 12/08/23 Nani Cloud MD [address] [place] [address] PCP - General Family Medicine 02/09/24 01/10/25 Provider, None [place] PCP - General 03/25/25 04/10/25 John Delgado MD [address] [facility] [address] [place] [address] PCP - General Family Medicine 04/11/25 Tapan Guo MD #2 [facility] NORI [facility] [address] [place] [address] Consulting Physician Colon and Rectal Surgery 09/21/22 documented as of this encounter
--- OUTSIDE RECORDS SUMMARY | 2025-05-15 09:24 | XMS_ITS | Encounter Summary ---
Author Organization [facility] Address [address] [place] [address] Phone Care Team Providers Care Laboratory Scientist Name Role Phone Vanessa Hyman MD Primary Care Provider [phone] Tapan Guo MD Unavailable Ted Reyes MD Primary Care Provider [phone] Nani Cloud MD Primary Care Provider + [phone] Provider, None Primary Care Provider John Villatoro MD Primary Care Provider [phone] Encounter Details Date Type Department Care Team (Late st Contact Info) Description 04/14/2022 [facility] 1 [place] [phone] John Delgado MD [address] [place] [address] [address] [place] [address] Encounter for screening for COVID-19 Social History [...] 08/05/2025 2:45 PM CDT [facility] [address] [place] [address] John Delgado MD [address] [place] [address] [address] [place] [address] Discharge Disposition: Discharged to home or Selfcare documented as of this encounter Procedures Procedure Name Priority Date/Time Associated Diagnosis Comments SARS-COV-2 BY MOLECULAR Routine 04/14/2022 8:30 AM CDT Encounter for screening for COVID-19 documented in this encounter Results * SARS-COV-2 BY MOLECULAR (04/14/2022 8:30 AM CDT) SARSCOV2 NOT DETECTED (Referen ce Range for this test is Not Detected ) [facility] THERMOFISHER FAST DX 04/15/2022 9:52 AM CDT [facility] Comment:This test was perfor med by a RT-PCR method. Other Non-Phlebotomy Collection / Unknown 04/14/2022 8:30 AM CDT 04/14/2022 10:48 AM CDT Narrative [facility] - 04/15/2022 9:52 AM CDT Authorized Fact Sheets about this test for providers and patients are available at: https://www.fda.gov/medical-devices/xecbxahmy-fmvezffhhr-iyswfrx-devices/emergen -us e-authorizations us John Delgado MD MICROBIOLOGY - GENERAL ORDERAB LES Final Result [facility] [address] [place] [address], documented in this encounter Visit Diagnoses Diagnosis Encounter for screening for COVID-19 documented in this encounter Additional Health Concerns Infection Onset Date Last Indicated Resolved Time COVID - 19 03/03/2022 09/01/2022 09/08/2022 8:21 AM HEAD CUSTODIAN COVID - 19 10/20/2022 01/05/2023 01/15/2023 12:1 6 AM CDT documented as of this encounter Care Teams Laboratory Scientist Relationship Specialty Start Date End Date Vanessa Hyman MD PCP - General Family Medicine 09/01/15 10/23/22 Ted Reyes MD #[address] [address] PCP - General Family Medicine 10/24/22 12/08/23 Nani Cloud MD [address] [place] [address] PCP - General Family Medicine 02/09/24 01/10/25 Provider, None [place] PCP - General 03/25/25 04/10/25 John Delgado MD [address] [place] [address] [address] [place] [address] PCP - General Family Medicine 04/11/25 Tapan Guo MD #[address] [address] Consulting Physician Colon and Rectal Surgery 09/21/22 documented as of this encounter
--- OUTSIDE RECORDS SUMMARY | 2025-05-15 09:24 | XMS_ITS | Encounter Summary ---
Author Organization [facility] Address [address] [place] [address] Phone Care Team Providers Care Molten Iron Pourer Name Role Phone Vanessa Hyman MD Primary Care Provider [phone] Tapan Guo MD Unavailable Ted Reyes MD Primary Care Provider [phone] Nani Cloud MD Primary Care Provider + [phone] Provider, None Primary Care Provider John Villatoro MD Primary Care Provider [phone] Encounter Details Date Type Department Care Team (Late st Contact Info) Description 10/20/2022 Lab Requisition [facility] Laboratory Services 1 [place] [address] John Delgado MD [address] [place] [address] [address] [place] [address] Encounter for screening for COVID-19 Social History [...] suspected to have Coronavirus/COVID-19? No / Unsure 09/29/2022 9:55 AM RAG CUTTING MACHINE TENDER documented as of this encounter Plan of Treatment Upcoming Encounters Date Type Department Care Team (Late st Contact Info) Description 08/05/2025 2:45 PM CDT [facility] [address] [place] [address] John Delgado MD [address] [place] [address] [facility] [address] [place] [address] Discharge Disposition: Discharged to home or Selfcare documented as of this encounter Procedures Procedure Name Priority Date/Time Associated Diagnosis Comments SARS-COV-2 BY MOLECULAR Routine 10/20/2022 8:19 AM RAG CUTTING MACHINE TENDER Encounter for screening for COVID-19 documented in this encounter Results * SARS-COV-2 BY MOLECULAR (10/20/2022 8:19 AM RAG CUTTING MACHINE TENDER) SARSCOV2 NOT DETECTED (Referen ce Range for this test is Not Detected ) [facility] THERMOFISHER FAST DX 10/21/2022 12:33 AM RAG CUTTING MACHINE TENDER [facility] Comment:This test was perfor med by a RT-PCR method. Other Non-Phlebotomy Collection / Unknown 10/20/2022 8:19 AM RAG CUTTING MACHINE TENDER 10/20/2022 2:27 PM RAG CUTTING MACHINE TENDER Narrative [facility] - 10/21/2022 12:33 AM RAG CUTTING MACHINE TENDER Authorized Fact Sheets about this test for providers and patients are available at: https://www.fda.gov/medical-devices/ayjhecxly-lwxolmexap-tshrumk-devices/emergen cy-us e-authorizations us John Delgado MD MICROBIOLOGY - GENERAL ORDERAB LES Final Result [facility] [address] [place] [address], [place] documented in this encounter Visit Diagnoses Diagnosis Encounter for screening for COVID-19 documented in this encounter Additional Health Concerns Infection Onset Date Last Indicated Resolved Time COVID - 19 10/20/2022 01/05/2023 01/15/2023 12:1 6 AM CDT documented as of this encounter Care Teams Molten Iron Pourer Relationship Specialty Start Date End Date Vanessa Hyman MD PCP - General Family Medicine 09/01/15 10/23/22 Ted Reyes MD #[address] [address] PCP - General Family Medicine 10/24/22 12/08/23 Nani Cloud MD [address] [place] [address] PCP - General Family Medicine 02/09/24 01/10/25 Provider, None [place] PCP - General 03/25/25 04/10/25 John Delgado MD [address] [place] [address] [address] [place] [address] PCP - General Family Medicine 04/11/25 Tapan Guo MD #[address] [address] Consulting Physician Colon and Rectal Surgery 09/21/22 documented as of this encounter
--- OUTSIDE RECORDS SUMMARY | 2025-05-15 09:24 | XMS_ITS | Encounter Summary ---
Author Organization [facility] Address [address] [place] [address] Phone Care Team Providers Care Bulb Grader Name Role Phone Tapan Guo MD Unavailable Ted Reyes MD Primary Care Provider [phone] Nani Cloud MD Primary Care Provider [phone] Provider, None Primary Care Provider John Villatoro MD Primary Care Provider [phone] Encounter Details Date Type Department Care Team (Late st Contact Info) Description 11/10/2022 Lab Requisition [facility] Laboratory Services 1 [place] [address] John Delgado MD [address] [place] [address] [address] [place] [address] Encounter for screening for COVID-19 [...] Info) Description 08/05/2025 2:45 PM CDT [facility] [address] [place] [address] John Delgado MD [address] [facility] [address] [place] [address] Discharge Disposition: Discharged to home or Selfcare documented as of this encounter Procedures Procedure Name Priority Date/Time Associated Diagnosis Comments SARS-COV-2 BY MOLECULAR Routine 11/10/2022 8:19 AM TURPENTINE FARMER Encounter for screening for COVID-19 documented in this encounter Results * SARS-COV-2 BY MOLECULAR (11/10/2022 8:19 AM TURPENTINE FARMER) SARSCOV2 NOT DETECTED (Referen ce Range for this test is Not Detected ) [facility] THERMOFISHER FAST DX 11/10/2022 10:41 PM TURPENTINE FARMER [facility] Comment:This test was perfor med by a RT-PCR method. Other Non-Phlebotomy Collection / Unknown 11/10/2022 8:19 AM TURPENTINE FARMER 11/10/2022 2:48 PM TURPENTINE FARMER Narrative [facility] - 11/10/2022 10:41 PM TURPENTINE FARMER Authorized Fact Sheets about this test for providers and patients are available at: https://www.fda.gov/medical-devices/waedrfqzb-tjpfuorwzc-uerppxy-devices/emergen -us e-authorizations John Delgado MD MICROBIOLOGY - GENERAL ORDERAB LES Final Result [facility] [address] [facility] [place] [address], documented in this encounter Visit Diagnoses Diagnosis Encounter for screening for COVID-19 documented in this encounter Additional Health Concerns Infection Onset Date Last Indicated Resolved Time COVID - 19 10/20/2022 01/05/2023 01/15/2023 12:1 6 AM CDT documented as of this encounter Care Teams Bulb Grader Relationship Specialty Start Date End Date Ted Reyes MD #[address] [place] [address] PCP - General Family Medicine 10/24/22 12/08/23 Nani Cloud MD [address] [place] [address] PCP - General Family Medicine 02/09/24 01/10/25 Provider, None [place] PCP - General 03/25/25 04/10/25 John Delgado MD 4 [facility] [address] [place] [address] PCP - General Family Medicine 04/11/25 Tapan Guo MD #2 [facility] NORI [facility] [address] [place] [address] Consulting Physician Colon and Rectal Surgery 09/21/22 documented as of this encounter
--- OUTSIDE RECORDS SUMMARY | 2025-05-15 09:24 | XMS_ITS | Encounter Summary ---
Author Organization [facility] Address [address] [place] [address] Phone Care Team Providers Care Gas Line Servicer Name Role Phone Tapan Guo MD Unavailable Ted Reyes MD Primary Care Provider [phone] Nani Cloud MD Primary Care Provider [phone] Provider, None Primary Care Provider John Villatoro MD Primary Care Provider [phone] Encounter Details Date Type Department Care Team (Late st Contact Info) Description 12/22/2022 Lab Requisition [facility] Laboratory Services 1 [place] [address] John Delgado MD [address] [place] [address] [address] [place] [address] Encounter for screening for COVID-19 [...] Coronavirus/COVID-19? No / Unsure 12/06/2022 10:30 AM CRANE CREW SUPERVISOR documented as of this encounter Plan of Treatment Upcoming Encounters Date Type Department Care Team (Late st Contact Info) Description 08/05/2025 2:45 PM CDT [facility] [address] [place] [address] John Delgado MD [address] [place] [address] [address] [place] [address] Discharge Disposition: Discharged to home or Selfcare documented as of this encounter Procedures Procedure Name Priority Date/Time Associated Diagnosis Comments SARS-COV-2 BY MOLECULAR Routine 12/22/2022 8:33 AM CRANE CREW SUPERVISOR Encounter for screening for COVID-19 documented in this encounter Results * SARS-COV-2 BY MOLECULAR (12/22/2022 8:33 AM CRANE CREW SUPERVISOR) SARSCOV2 NOT DETECTED (Referen ce Range for this test is Not Detected ) [facility] THERMOFISHER FAST DX 12/23/2022 8:01 AM CRANE CREW SUPERVISOR [facility] Comment:This test was perfor med by a RT-PCR method. Other Non-Phlebotomy Collection / Unknown 12/22/2022 8:33 AM CRANE CREW SUPERVISOR 12/22/2022 10:17 AM CRANE CREW SUPERVISOR N[facility]ative [facility] - 12/23/2022 8:01 AM CRANE CREW SUPERVISOR Authorized Fact Sheets about this test for providers and patients are available at: https://www.fda.gov/medical-devices/rplgkxwjm-arrwgxmjmb-rxyvaez-devices/emergen -us e-authorizations us John Delgado MD MICROBIOLOGY - GENERAL ORDERAB LES Final Result [facility] [address] [place] [address], documented in this encounter Visit Diagnoses Diagnosis Encounter for screening for COVID-19 documented in this encounter Additional Health Concerns Infection Onset Date Last Indicated Resolved Time COVID - 19 10/20/2022 01/05/2023 01/15/2023 12:1 6 AM CDT documented as of this encounter Care Teams Gas Line Servicer Relationship Specialty Start Date End Date Ted Reyes MD #[address] [address] PCP - General Family Medicine 10/24/22 12/08/23 Nani Cloud MD [address] [place] [address] PCP - General Family Medicine 02/09/24 01/10/25 Provider, None [place] PCP - General 03/25/25 04/10/25 John Delgado MD [address] [place] [address] [address] [place] [address] PCP - General Family Medicine 04/11/25 Tapan Guo MD #[address] [address] Consulting Physician Colon and Rectal Surgery 09/21/22 documented as of this encounter
--- OUTSIDE RECORDS SUMMARY | 2025-05-15 09:24 | XMS_ITS | Encounter Summary ---
Author Organization [facility] Address [address] [place] [address] Phone Care Team Providers Care Sales Promotion Director Name Role Phone Vanessa Hyman MD Primary Care Provider + [phone] Tapan Guo MD Unavailable Ted Reyes MD Primary Care Provider [phone] Nani Cloud MD Primary Care Provider + [phone] Provider, None Primary Care Provider John Villatoro MD Primary Care Provider [phone] Encounter Details Date Type Department Care Team (Late st Contact Info) Description 05/26/2022 [facility] 1 [place] [id number] John Delgado MD [address] [place] [address] [address] [place] [address] Encounter for screening for COVID-19 Social History [...] Info) Description 08/05/2025 2:45 PM CDT [facility] [address] [place] [address] John Delgado MD [address] [place] [address] [address] [place] [address] Discharge Disposition: Discharged to home or Selfcare documented as of this encounter Procedures Procedure Name Priority Date/Time Associated Diagnosis Comments SARS-COV-2 BY MOLECULAR Routine 05/26/2022 9:34 AM CDT documented in this encounter Results * SARS-COV-2 BY MOLECULAR (05/26/2022 9:34 AM CDT) SARSCOV2 NOT DETECTED (Referen ce Range for this test is Not Detected ) [facility] THERMOFISHER FAST DX 05/27/2022 12:51 PM CDT [facility] Comment:This test was perfor med by a RT-PCR method. Other Non-Phlebotomy Collection / Unknown 05/26/2022 9:34 AM CDT 05/26/2022 1:00 PM CDT Narrative [facility] - 05/27/2022 12:51 PM CDT Authorized Fact Sheets about this test for providers and patients are available at: https://www.fda.gov/medical-devices/petezewru-rfhvnryhyn-bvzwwdu-devices/emergen -us e-authorizations us John Delgado MD MICROBIOLOGY - GENERAL ORDERAB LES Final Result [facility] [address] [place] [address], documented in this encounter Visit Diagnoses Diagnosis Encounter for screening for COVID-19 documented in this encounter Additional Health Concerns Infection Onset Date Last Indicated Resolved Time COVID - 19 03/03/2022 09/01/2022 09/08/2022 8:21 AM SLOPE TENDER COVID - 19 10/20/2022 01/05/2023 01/15/2023 12:1 6 AM CDT documented as of this encounter Care Teams Sales Promotion Director Relationship Specialty Start Date End Date Vanessa Hyman MD PCP - General Family Medicine 09/01/15 10/23/22 Ted Reyes MD #[address] [address] PCP - General Family Medicine 10/24/22 12/08/23 Nani Cloud MD [address] [place] [address] PCP - General Family Medicine 02/09/24 01/10/25 Provider, None [place] PCP - General 03/25/25 04/10/25 John Delgado MD [address] [place] [address] [address] [place] [address] PCP - General Family Medicine 04/11/25 Tapan Guo MD #[address] [address] Consulting Physician Colon and Rectal Surgery 09/21/22 documented as of this encounter
--- OUTSIDE RECORDS SUMMARY | 2025-05-15 09:24 | XMS_ITS | Encounter Summary ---
Author Organization [facility] Address [address] [place] [address] Phone Care Team Providers Care Diamond Die Driller Name Role Phone Vanessa Hyman MD Primary Care Provider + [phone] Tapan Guo MD Unavailable Ted Reyes MD Primary Care Provider [phone] Nani Cloud MD Primary Care Provider + [phone] Provider, None Primary Care Provider John Villatoro MD Primary Care Provider [phone] Encounter Details Date Type Department Care Team (Late st Contact Info) Description 07/07/2022 Lab Requisition [facility] Laboratory Services 1 [place] [address] John Delgado MD [address] [place] [address] 210 [place] [address] Encounter for screening for COVID-19 Social History [...] Info) Description 08/05/2025 2:45 PM CDT [facility] [address] [place] [address] John Delgado MD [address] [place] [address] [facility] [address] [place] [address] Discharge Disposition: Discharged to home or Selfcare documented as of this encounter Procedures Procedure Name Priority Date/Time Associated Diagnosis Comments SARS-COV-2 BY MOLECULAR Routine 07/07/2022 8:18 AM CDT documented in this encounter Results * SARS-COV-2 BY MOLECULAR (07/07/2022 8:18 AM CDT) SARSCOV2 NOT DETECTED (Referen ce Range for this test is Not Detected ) [facility] THERMOFISHER FAST DX 07/07/2022 10:11 PM CDT [facility] Comment:This test was perfor med by a RT-PCR method. Other Non-Phlebotomy Collection / Unknown 07/07/2022 8:18 AM CDT 07/07/2022 9:49 AM CDT Narrative [facility] - 07/07/2022 10:11 PM CDT Authorized Fact Sheets about this test for providers and patients are available at: https://www.fda.gov/medical-devices/kbnkpexav-emjidxgfis-zbmapue-devices/emergen cy-us e-authorizations us John Delgado MD MICROBIOLOGY - GENERAL ORDERAB LES Final Result [facility] [address] [place] [address], [place] documented in this encounter Visit Diagnoses Diagnosis Encounter for screening for COVID-19 documented in this encounter Additional Health Concerns Infection Onset Date Last Indicated Resolved Time COVID - 19 03/03/2022 09/01/2022 09/08/2022 8:21 AM CRANE FOLLOWER COVID - 19 10/20/2022 01/05/2023 01/15/2023 12:1 6 AM CDT documented as of this encounter Care Teams Diamond Die Driller Relationship Specialty Start Date End Date Vanessa Hyman MD PCP - General Family Medicine 09/01/15 10/23/22 Ted Reyes MD [address] [address] PCP - General Family Medicine 10/24/22 12/08/23 Nani Cloud MD [address] [address] PCP - General Family Medicine 02/09/24 01/10/25 Provider, None [place] PCP - General 03/25/25 04/10/25 John Delgado MD [address] [place] [address] [address] [place] [address] PCP - General Family Medicine 04/11/25 Tapan Guo MD #[address] [address] Consulting Physician Colon and Rectal Surgery 09/21/22 documented as of this encounter
--- OUTSIDE RECORDS SUMMARY | 2025-05-15 09:24 | XMS_ITS | Encounter Summary ---
Author Organization [facility] Address [address] [place] [address] Phone Care Team Providers Care Control Panel Operator Crude Unit Name Role Phone Vanessa Hyman MD Primary Care Provider + [phone] Tapan Guo MD Unavailable Ted Reyes MD Primary Care Provider [phone] Nani Cloud MD Primary Care Provider + [phone] Provider, None Primary Care Provider John Villatoro MD Primary Care Provider [phone] Encounter Details Date Type Department Care Team (Late st Contact Info) Description 06/02/2022 [facility] 1 [place] [phone] John Delgado MD [address] [place] [address] [address] [place] [address] Encounter for screening for COVID-19 Social History [...] Info) Description 08/05/2025 2:45 PM CDT [facility] [address] [place] [address] John Delgado MD [address] [place] [address] [address] [place] [address] Discharge Disposition: Discharged to home or Selfcare documented as of this encounter Procedures Procedure Name Priority Date/Time Associated Diagnosis Comments SARS-COV-2 BY MOLECULAR Routine 06/02/2022 8:00 AM CDT Encounter for screening for COVID-19 documented in this encounter Results * SARS-COV-2 BY MOLECULAR (06/02/2022 8:00 AM CDT) SARSCOV2 NOT DETECTED (Referen ce Range for this test is Not Detected ) [facility] THERMOFISHER FAST DX 06/03/2022 6:46 AM CDT [facility] Comment:This test was perfor med by a RT-PCR method. Other No Phlebotomy Charged / Unknown 06/02/2022 8:00 AM CDT 06/02/2022 10:57 AM CDT Narrative [facility] - 06/03/2022 6:46 AM CDT Authorized Fact Sheets about this test for providers and patients are available at: https://www.fda.gov/medical-devices/vwuzpmddt-rakfrreylx-ehdbapg-devices/emergen -us e-authorizations us John Delgado MD MICROBIOLOGY - GENERAL ORDERAB LES Final Result [facility] [address] [place] [address], documented in this encounter Visit Diagnoses Diagnosis Encounter for screening for COVID-19 documented in this encounter Additional Health Concerns Infection Onset Date Last Indicated Resolved Time COVID - 19 03/03/2022 09/01/2022 09/08/2022 8:21 AM WOOD CABINET FINISHER COVID - 19 10/20/2022 01/05/2023 01/15/2023 12:1 6 AM CDT documented as of this encounter Care Teams Control Panel Operator Crude Unit Relationship Specialty Start Date End Date Vanessa Hyman MD PCP - General Family Medicine 09/01/15 10/23/22 Ted Reyes MD #[address] [address] PCP - General Family Medicine 10/24/22 12/08/23 Nani Cloud MD [address] [place] [address] PCP - General Family Medicine 02/09/24 01/10/25 Provider, None [place] PCP - General 03/25/25 04/10/25 John Delgado MD [address] [place] [address] [address] [place] [address] PCP - General Family Medicine 04/11/25 Tapan Guo MD #[address] [address] Consulting Physician Colon and Rectal Surgery 09/21/22 documented as of this encounter
--- OUTSIDE RECORDS SUMMARY | 2025-05-15 09:24 | XMS_ITS | Encounter Summary ---
Author Organization [facility] Address [address] [place] [address] Phone Care Team Providers Care Shaper Operator Name Role Phone Vanessa Hyman MD Primary Care Provider + [phone] Tpaan Guo MD Unavailable Ted Reyes MD Primary Care Provider [phone] Nani Cloud MD Primary Care Provider + [phone] Provider, None Primary Care Provider John Villatoro MD Primary Care Provider [phone] Encounter Details Date Type Department Care Team (Late st Contact Info) Description 04/21/2022 [facility] 1 [place] [phone] John Delgado MD [address] [place] [address] 210 [place] [address] Encounter for screening for COVID-19 Social History [...] Info) Description 08/05/2025 2:45 PM CDT [facility] [address] [place] [address] John Delgado MD [address] [place] [address] [address] [place] [address] Discharge Disposition: Discharged to home or Selfcare documented as of this encounter Procedures Procedure Name Priority Date/Time Associated Diagnosis Comments SARS-COV-2 BY MOLECULAR Routine 04/21/2022 8:34 AM CDT Encounter for screening for COVID-19 documented in this encounter Results * SARS-COV-2 BY MOLECULAR (04/21/2022 8:34 AM CDT) SARSCOV2 NOT DETECTED (Referen ce Range for this test is Not Detected ) [facility] FA[facility] DX 04/21/2022 5:27 PM CDT [facility] Comment:This test was perfor med by a RT-PCR method. Other Non-Phlebotomy Collection / Unknown 04/21/2022 8:34 AM CDT 04/21/2022 9:39 AM CDT Narrative [facility] - 04/21/2022 5:27 PM CDT Authorized Fact Sheets about this test for providers and patients are available at: https://www.fda.gov/medical-devices/zzxxaonvw-pgmxalwfxf-cdvipdb-devices/emergen -us e-authorizations us John Delgado MD MICROBIOLOGY - GENERAL ORDERAB LES Final Result [facility] [address] [place] [address], documented in this encounter Visit Diagnoses Diagnosis Encounter for screening for COVID-19 documented in this encounter Additional Health Concerns Infection Onset Date Last Indicated Resolved Time COVID - 19 03/03/2022 09/01/2022 09/08/2022 8:21 AM RADIATION ENGINEER COVID - 19 10/20/2022 01/05/2023 01/15/2023 12:1 6 AM CDT documented as of this encounter Care Teams Shaper Operator Relationship Specialty Start Date End Date Vanessa Hyman MD PCP - General Family Medicine 09/01/15 10/23/22 Ted Reyes MD #[address] [address] PCP - General Family Medicine 10/24/22 12/08/23 Nani Cloud MD [address] [place] [address] PCP - General Family Medicine 02/09/24 01/10/25 Provider, None [place] PCP - General 03/25/25 04/10/25 John Delgado MD [address] [place] [address] [address] [place] [address] PCP - General Family Medicine 04/11/25 Tapan Guo MD #[address] [address] Consulting Physician Colon and Rectal Surgery 09/21/22 documented as of this encounter
--- OUTSIDE RECORDS SUMMARY | 2025-05-15 09:24 | XMS_ITS | Encounter Summary ---
Author Organization [facility] Address [address] [place] [address] Phone Care Team Providers Care Urology Teacher Name Role Phone Tapan Guo MD Unavailable Ted Reyes MD Primary Care Provider [phone] Nani Cloud MD Primary Care Provider [phone] Provider, None Primary Care Provider John iVllatoro MD Primary Care Provider [phone] Encounter Details Date Type Department Care Team (Late st Contact Info) Description 10/27/2022 Lab Requisition [facility] Laboratory [facility] 1 [place] [address] John Delgado MD [address] [place] [address] [address] [place] [address] Encounter for screening for COVID-19 [...] Coronavirus/COVID-19? No / Unsure 09/29/2022 9:55 AM SHRIMP BOAT CAPTAIN documented as of this encounter Plan of Treatment Upcoming Encounters Date Type Department Care Team (Late st Contact Info) Description 08/05/2025 2:45 PM CDT [facility] [address] [place] [address] John Delgado MD [address] [place] [address] [address] [place] [address] Discharge Disposition: Discharged to home or Selfcare documented as of this encounter Procedures Procedure Name Priority Date/Time Associated Diagnosis Comments SARS-COV-2 BY MOLECULAR Routine 10/27/2022 12:12 PM SHRIMP BOAT CAPTAIN Encounter for screening for COVID-19 documented in this encounter Results * SARS-COV-2 BY MOLECULAR (10/27/2022 12:12 PM SHRIMP BOAT CAPTAIN) SARSCOV2 NOT DETECTED (Referen ce Range for this test is Not Detected ) [facility] THERMOFISHER FAST DX 10/28/2022 11:33 AM SHRIMP BOAT CAPTAIN [facility] Comment:This test was perfor med by a RT-PCR method. Other No Phlebotomy Charged / Unknown 10/27/2022 12:12 PM SHRIMP BOAT CAPTAIN 10/27/2022 1:41 PM SHRIMP BOAT CAPTAIN N[facility]ative [facility] - 10/28/2022 11:33 AM SHRIMP BOAT CAPTAIN Authorized Fact Sheets about this test for providers and patients are available at: https://www.fda.gov/medical-devices/pevhwogdg-ytcivvwlkx-gvvomgp-devices/emergen -us e-authorizations us John Delgado MD MICROBIOLOGY - GENERAL ORDERAB LES Final Result [facility] [address] [place] [address], documented in this encounter Visit Diagnoses Diagnosis Encounter for screening for COVID-19 documented in this encounter Additional Health Concerns Infection Onset Date Last Indicated Resolved Time COVID - 19 10/20/2022 01/05/2023 01/15/2023 12:1 6 AM CDT documented as of this encounter Care Teams Urology Teacher Relationship Specialty Start Date End Date Ted Reyes MD #[address] [address] PCP - General Family Medicine 10/24/22 12/08/23 Nani Cloud MD [address] [place] [address] PCP - General Family Medicine 02/09/24 01/10/25 Provider, None [place] PCP - General 03/25/25 04/10/25 John Delgado MD [address] [place] [address] [address] [place] [address] PCP - General Family Medicine 04/11/25 Tapan Guo MD #[address] [address] Consulting Physician Colon and Rectal Surgery 09/21/22 documented as of this encounter
--- OUTSIDE RECORDS SUMMARY | 2025-05-15 09:24 | XMS_ITS | Encounter Summary ---
Author Organization [facility] Address [address] [place] [address] Phone Care Team Providers Care Card Lacer Name Role Phone Tapan Guo MD Unavailable Ted Reyes MD Primary Care Provider [phone] Nani Cloud MD Primary Care Provider [phone] Provider, None Primary Care Provider John Villatoro MD Primary Care Provider [phone] Encounter Details Date Type Department Care Team (Late st Contact Info) Description 12/15/2022 Lab Requisition [facility] Laboratory Services 1 [place] [address] John Delgado MD [address] [place] [address] [address] [place] [address] Encounter for screening for COVID-19 [...] Coronavirus/COVID-19? No / Unsure 12/06/2022 10:30 AM CORPORATE RELATIONS DIRECTOR documented as of this encounter Plan of Treatment Upcoming Encounters Date Type Department Care Team (Late st Contact Info) Description 08/05/2025 2:45 PM CDT [facility] [address] [place] [address] John Delgado MD [address] [place] [address] [address] [place] [address] Discharge Disposition: Discharged to home or Selfcare documented as of this encounter Procedures Procedure Name Priority Date/Time Associated Diagnosis Comments SARS-COV-2 BY MOLECULAR Routine 12/15/2022 8:29 AM CORPORATE RELATIONS DIRECTOR Encounter for screening for COVID-19 documented in this encounter Results * SARS-COV-2 BY MOLECULAR (12/15/2022 8:29 AM CORPORATE RELATIONS DIRECTOR) SARSCOV2 NOT DETECTED (Referen ce Range for this test is Not Detected ) [facility] THERMOFISHER FAST DX 12/16/2022 12:34 AM CORPORATE RELATIONS DIRECTOR [facility] Comment:This test was perfor med by a RT-PCR method. Other Non-Phlebotomy Collection / Unknown 12/15/2022 8:29 AM CORPORATE RELATIONS DIRECTOR 12/15/2022 10:37 AM CORPORATE RELATIONS DIRECTOR Narrative [facility] - 12/16/2022 12:34 AM CORPORATE RELATIONS DIRECTOR Authorized Fact Sheets about this test for providers and patients are available at: https://www.fda.gov/medical-devices/qnatkspby-pkbisbkkkt-tbckmhn-devices/emergen -us e-authorizations us John Delgado MD MICROBIOLOGY - GENERAL ORDERAB LES Final Result [facility] [address] [place] [address], documented in this encounter Visit Diagnoses Diagnosis Encounter for screening for COVID-19 documented in this encounter Additional Health Concerns Infection Onset Date Last Indicated Resolved Time COVID - 19 10/20/2022 01/05/2023 01/15/2023 12:1 6 AM CDT documented as of this encounter Care Teams Card Lacer Relationship Specialty Start Date End Date Ted Reyes MD #[address] [address] PCP - General Family Medicine 10/24/22 12/08/23 Nani Cloud MD [address] [place] [address] PCP - General Family Medicine 02/09/24 01/10/25 Provider, None [place] PCP - General 03/25/25 04/10/25 John Delgado MD [address] [place] [address] [address] [place] [address] PCP - General Family Medicine 04/11/25 Tapan Guo MD #[address] [address] Consulting Physician Colon and Rectal Surgery 09/21/22 documented as of this encounter
--- OUTSIDE RECORDS SUMMARY | 2025-05-15 09:24 | XMS_ITS | Encounter Summary ---
Author Organization [facility] Address [address] [place] [address] Phone Care Team Providers Care Lawn Sprinkler Servicer Name Role Phone Vanessa Hyman MD Primary Care Provider + [phone] Tapan Guo MD Unavailable Ted Reyes MD Primary Care Provider [phone] Nani Cloud MD Primary Care Provider + [phone] Provider, None Primary Care Provider John Villatoro MD Primary Care Provider [phone] Encounter Details Date Type Department Care Team (Late st Contact Info) Description 04/28/2022 [facility] 1 [place] [phone] John Delgado MD [address] [place] [address] [address] [place] [address] Encounter for screening for COVID-19 Social History [...] Info) Description 08/05/2025 2:45 PM CDT [facility] [address] [place] [address] John Delgado MD [address] [place] [address] [address] [place] [address] Discharge Disposition: Discharged to home or Selfcare documented as of this encounter Procedures Procedure Name Priority Date/Time Associated Diagnosis Comments SARS-COV-2 BY MOLECULAR Routine 04/28/2022 8:25 AM CDT Encounter for screening for COVID-19 documented in this encounter Results * SARS-COV-2 BY MOLECULAR (04/28/2022 8:25 AM CDT) SARSCOV2 NOT DETECTED (Referen ce Range for this test is Not Detected ) [facility] THERMOFISHER FAST DX 04/29/2022 11:34 AM CDT [facility] Comment:This test was perfor med by a RT-PCR method. Other Non-Phlebotomy Collection / Unknown 04/28/2022 8:25 AM CDT 04/28/2022 11:[address] [facility] - 04/29/2022 11:34 AM CDT Authorized Fact Sheets about this test for providers and patients are available at: https://www.fda.gov/medical-devices/vpzuevbzn-joiahoocfu-negmlcz-devices/emergen -us e-authorizations us John Delgado MD MICROBIOLOGY - GENERAL ORDERAB LES Final Result [facility] [address] [place] [address], documented in this encounter Visit Diagnoses Diagnosis Encounter for screening for COVID-19 documented in this encounter Additional Health Concerns Infection Onset Date Last Indicated Resolved Time COVID - 19 03/03/2022 09/01/2022 09/08/2022 8:21 AM APPRAISER COVID - 19 10/20/2022 01/05/2023 01/15/2023 12:1 6 AM CDT documented as of this encounter Care Teams Lawn Sprinkler Servicer Relationship Specialty Start Date End Date Vanessa Hyman MD PCP - General Family Medicine 09/01/15 10/23/22 Ted Reyes MD #[address] [address] PCP - General Family Medicine 10/24/22 12/08/23 Nani Cloud MD [address] [place] [address] PCP - General Family Medicine 02/09/24 01/10/25 Provider, None [place] PCP - General 03/25/25 04/10/25 John Delgado MD [address] [place] [address] [address] [place] [address] PCP - General Family Medicine 04/11/25 Tapan Guo MD #[address] [address] Consulting Physician Colon and Rectal Surgery 09/21/22 documented as of this encounter
--- OUTSIDE RECORDS SUMMARY | 2025-05-15 09:24 | XMS_ITS | Encounter Summary ---
Author Organization [facility] Address [address] [place] [address] Phone Care Team Providers Care Journeyman Glazier Name Role Phone Vanessa Hyman MD Primary Care Provider + [phone] Tapan Guo MD Unavailable Ted Reyes MD Primary Care Provider [phone] Nani Cloud MD Primary Care Provider + [phone] Provider, None Primary Care Provider John Villatoro MD Primary Care Provider [phone] Encounter Details Date Type Department Care Team (Late st Contact Info) Description 09/01/2022 [facility] 1 [place] [id number] John Delgado MD [address] [place] [address] [address] [place] [address] Encounter for screening for COVID-19 Social History [...] Info) Description 08/05/2025 2:45 PM CDT [facility] [address] [place] [address] John Delgado MD [address] [place] [address] [address] [place] [address] Discharge Disposition: Discharged to home or Selfcare documented as of this encounter Procedures Procedure Name Priority Date/Time Associated Diagnosis Comments SARS-COV-2 BY MOLECULAR Routine 09/01/2022 9:52 AM LIBRARY INFORMATION TECHNICIAN Encounter for screening for COVID-19 documented in this encounter Results * SARS-COV-2 BY MOLECULAR (09/01/2022 9:52 AM LIBRARY INFORMATION TECHNICIAN) SARSCOV2 NOT DETECTED (Referen ce Range for this test is Not Detected ) [facility] THERMOFISHER FAST DX 09/02/2022 4:42 AM LIBRARY INFORMATION TECHNICIAN [facility] Comment:This test was perfor med by a RT-PCR method. Other Non-Phlebotomy Collection / Unknown 09/01/2022 9:52 AM LIBRARY INFORMATION TECHNICIAN 09/01/2022 11:05 AM LIBRARY INFORMATION TECHNICIAN Narrative [facility] - 09/02/2022 4:42 AM LIBRARY INFORMATION TECHNICIAN Authorized Fact Sheets about this test for providers and patients are available at: https://www.fda.gov/medical-devices/ppsnxayxe-lsmtzzswlo-bctjazi-devices/emergen -us e-authorizations us John Delgado MD MICROBIOLOGY - GENERAL ORDERAB LES Final Result [facility] [address] [place] [address], [place] documented in this encounter Visit Diagnoses Diagnosis Encounter for screening for COVID-19 documented in this encounter Additional Health Concerns Infection Onset Date Last Indicated Resolved Time COVID - 19 03/03/2022 09/01/2022 09/08/2022 8:21 AM LIBRARY INFORMATION TECHNICIAN COVID - 19 10/20/2022 01/05/2023 01/15/2023 12:1 6 AM CDT documented as of this encounter Care Teams Journeyman Glazier Relationship Specialty Start Date End Date Vanessa Hyman MD PCP - General Family Medicine 09/01/15 10/23/22 Ted Reyes MD #[address] [address] PCP - General Family Medicine 10/24/22 12/08/23 Nani Cloud MD [address] [place] [address] PCP - General Family Medicine 02/09/24 01/10/25 Provider, None [place] PCP - General 03/25/25 04/10/25 John Delgado MD [address] [place] [address] [address] [place] [address] PCP - General Family Medicine 04/11/25 Tapan Guo MD #[address] [address] Consulting Physician Colon and Rectal Surgery 09/21/22 documented as of this encounter
--- OUTSIDE RECORDS SUMMARY | 2025-05-15 09:24 | XMS_ITS | Encounter Summary ---
Author Organization [facility] Address [address] [place] [address] Phone Care Team Providers Care Cotton Weigher Operator Name Role Phone Vanessa Hyman MD Primary Care Provider + [phone] Tapan uGo MD Unavailable Ted Reyes MD Primary Care Provider [phone] Nani Cloud MD Primary Care Provider + [phone] Provider, None Primary Care Provider John Villatoro MD Primary Care Provider [phone] Encounter Details Date Type Department Care Team (Late st Contact Info) Description 08/04/2022 Lab Requisition [facility] 1 [place] [id number] John Delgado MD [address] [place] [address] 210 [place] [address] Encounter for screening for COVID-19 Social History [...] Info) Description 08/05/2025 2:45 PM CDT Appointment [facility] [address] [place] [address] John Delgado MD [address] [place] [address] [address] [place] [address] Discharge Disposition: Discharged to home or Selfcare documented as of this encounter Procedures Procedure Name Priority Date/Time Associated Diagnosis Comments SARS-COV-2 BY MOLECULAR Routine 08/04/2022 9:40 AM CDT Encounter for screening for COVID-19 documented in this encounter Results * SARS-COV-2 BY MOLECULAR (08/04/2022 9:40 AM CDT) SARSCOV2 NOT DETECTED (Referen ce Range for this test is Not Detected ) [facility] THERMOFISHER FAST DX 08/05/2022 12:18 AM CDT [facility] Comment:This test was perfor med by a RT-PCR method. Other Non-Phlebotomy Collection / Unknown 08/04/2022 9:40 AM CDT 08/04/2022 8:21 PM CDT Narrative [facility] - 08/05/2022 12:18 AM CDT Authorized Fact Sheets about this test for providers and patients are available at: https://www.fda.gov/medical-devices/qgtwpewqk-jodirfczfn-zmhjntf-devices/emergen -us e-authorizations us John Delgado MD MICROBIOLOGY - GENERAL ORDERAB LES Final Result [facility] [address] [place] [address], documented in this encounter Visit Diagnoses Diagnosis Encounter for screening for COVID-19 documented in this encounter Additional Health Concerns Infection Onset Date Last Indicated Resolved Time COVID - 19 03/03/2022 09/01/2022 09/08/2022 8:21 AM LOCKSTITCH LINING MAKER COVID - 19 10/20/2022 01/05/2023 01/15/2023 12:1 6 AM CDT documented as of this encounter Care Teams Cotton Weigher Operator Relationship Specialty Start Date End Date Vanessa Hyman MD PCP - General Family Medicine 09/01/15 10/23/22 Ted Reyes MD #[address] [address] PCP - General Family Medicine 10/24/22 12/08/23 Nani Cloud MD [address] [place] [address] PCP - General Family Medicine 02/09/24 01/10/25 Provider, None [place] PCP - General 03/25/25 04/10/25 John Delgado MD [address] [place] [address] [address] [place] [address] PCP - General Family Medicine 04/11/25 Tapan Guo MD #[address] [address] Consulting Physician Colon and Rectal Surgery 09/21/22 documented as of this encounter
--- OUTSIDE RECORDS SUMMARY | 2025-05-15 09:24 | XMS_ITS | Encounter Summary ---
Author Organization [facility] Address [address] [place] [address] Phone Care Team Providers Care Biometrics Specialist Name Role Phone Vanessa Hyman MD Primary Care Provider + [phone] Tapan Guo MD Unavailable Ted Reyes MD Primary Care Provider [phone] Nani Cloud MD Primary Care Provider + [phone] Provider, None Primary Care Provider John Villatoro MD Primary Care Provider [phone] Encounter Details Date Type Department Care Team (Late st Contact Info) Description 06/23/2022 [facility] 1 [place] [phone] John Delgado MD [address] [place] [address] 210 [place] [address] Encounter for screening for COVID-19 Social History [...] Info) Description 08/05/2025 2:45 PM CDT [facility] [address] [place] [address] John Delgado MD [address] [place] [address] [address] [place] [address] Discharge Disposition: Discharged to home or Selfcare documented as of this encounter Procedures Procedure Name Priority Date/Time Associated Diagnosis Comments SARS-COV-2 BY MOLECULAR Routine 06/23/2022 12:26 AM CDT Encounter for screening for COVID-19 documented in this encounter Results * SARS-COV-2 BY MOLECULAR (06/23/2022 12:26 AM CDT) SARSCOV2 NOT DETECTED (Referen ce Range for this test is Not Detected ) [facility] THERMOFISHER FAST DX 06/24/2022 6:15 AM CDT [facility] Comment:This test was perfor med by a RT-PCR method. Other Non-Phlebotomy Collection / Unknown 06/23/2022 12:26 AM CDT 06/23/2022 11:50 AM CDT Narrative [facility] - 06/24/2022 6:15 AM CDT Authorized Fact Sheets about this test for providers and patients are available at: https://www.fda.gov/medical-devices/lxxrkdgtp-fclpnyxmcb-mojzcbu-devices/emergen -us e-authorizations us John Delgado MD MICROBIOLOGY - GENERAL ORDERAB LES Final Result [facility] [address] [place] [address], documented in this encounter Visit Diagnoses Diagnosis Encounter for screening for COVID-19 documented in this encounter Additional Health Concerns Infection Onset Date Last Indicated Resolved Time COVID - 19 03/03/2022 09/01/2022 09/08/2022 8:21 AM LEADERSHIP PROGRAM INTERN COVID - 19 10/20/2022 01/05/2023 01/15/2023 12:1 6 AM CDT documented as of this encounter Care Teams Biometrics Specialist Relationship Specialty Start Date End Date Vanessa Hyman MD PCP - General Family Medicine 09/01/15 10/23/22 Ted Reyes MD #[address] [address] PCP - General Family Medicine 10/24/22 12/08/23 Nani Cloud MD [address] [place] [address] PCP - General Family Medicine 02/09/24 01/10/25 Provider, None [place] PCP - General 03/25/25 04/10/25 John Delgado MD [address] [place] [address] [address] [place] [address] PCP - General Family Medicine 04/11/25 Tapan Guo MD #[address] [address] Consulting Physician Colon and Rectal Surgery 09/21/22 documented as of this encounter
--- OUTSIDE RECORDS SUMMARY | 2025-05-15 09:24 | XMS_ITS | Encounter Summary ---
Author Organization [facility] Address [address] [place] [address] Phone Care Team Providers Care Printing Plate Setter Name Role Phone Vanessa Hyman MD Primary Care Provider + [phone] Tapan Guo MD Unavailable Ted Reyes MD Primary Care Provider [phone] Nani Cloud MD Primary Care Provider + [phone] Provider, None Primary Care Provider John Villatoro MD Primary Care Provider [phone] Encounter Details Date Type Department Care Team (Late st Contact Info) Description 06/09/2022 [facility] 1 [place] [phone] John Delgado MD [address] [place] [address] 210 [place] [address] Encounter for screening for COVID-19 Social History [...] [place] [facility] [address] [place] [address] John Delgado MD [address] [place] [address] [address] [place] [address] Discharge Disposition: Discharged to home or Selfcare documented as of this encounter Procedures Procedure Name Priority Date/Time Associated Diagnosis Comments SARS-COV-2 BY MOLECULAR Routine 06/09/2022 8:35 AM CDT Encounter for screening for COVID-19 documented in this encounter Results * SARS-COV-2 BY MOLECULAR (06/09/2022 8:35 AM CDT) SARSCOV2 NOT DETECTED (Referen ce Range for this test is Not Detected ) [facility] [facility] THERMOFISHER FAST DX 06/10/2022 8:15 AM CDT [facility] Comment:This test was perfor med by a RT-PCR method. Other Non-Phlebotomy Collection / Unknown 06/09/2022 8:35 AM CDT 06/09/2022 1:27 PM CDT Narrative [facility] - 06/10/2022 8:15 AM CDT Authorized Fact Sheets about this test for providers and patients are available at: https://www.fda.gov/medical-devices/rvieokxyb-xysrjjuryu-hnmfwcu-devices/emergen -us e-authorizations us John Delgado MD MICROBIOLOGY - GENERAL ORDERAB LES Final Result [facility] [address] [place] [address], documented in this encounter Visit Diagnoses Diagnosis Encounter for screening for COVID-19 documented in this encounter Additional Health Concerns Infection Onset Date Last Indicated Resolved Time COVID - 19 03/03/2022 09/01/2022 09/08/2022 8:21 AM INSTRUMENT MAN COVID - 19 10/20/2022 01/05/2023 01/15/2023 12:1 6 AM CDT documented as of this encounter Care Teams Printing Plate Setter Relationship Specialty Start Date End Date Vanessa Hyman MD PCP - General Family Medicine 09/01/15 10/23/22 Ted Reyes MD #[address] [address] PCP - General Family Medicine 10/24/22 12/08/23 Nani Cloud MD [address] [place] [address] PCP - General Family Medicine 02/09/24 01/10/25 Provider, None [place] PCP - General 03/25/25 04/10/25 John Delgado MD [address] [place] [address] [address] [place] [address] PCP - General Family Medicine 04/11/25 Tapan Gou MD #[address] [address] Consulting Physician Colon and Rectal Surgery 09/21/22 documented as of this encounter
--- OUTSIDE RECORDS SUMMARY | 2025-05-15 09:24 | XMS_ITS | Encounter Summary ---
Author Organization [facility] Address [address] [place] [address] Phone Care Team Providers Care Java Software Engineer Name Role Phone Vanessa Hyman MD Primary Care Provider + [phone] Tapan Guo MD Unavailable Ted Reyes MD Primary Care Provider [phone] Nani Cloud MD Primary Care Provider + [phone] Provider, None Primary Care Provider John Villatoro MD Primary Care Provider [phone] Encounter Details Date Type Department Care Team (Late st Contact Info) Description 08/18/2022 [facility] 1 [place] [phone] John Delgado MD [address] [place] [address] 210 [place] [address] Encounter for screening for COVID-19 Social History [...] Info) Description 08/05/2025 2:45 PM CDT [facility] [address] [place] [address] John Delgado MD [address] [place] [address] [address] [place] [address] Discharge Disposition: Discharged to home or Selfcare documented as of this encounter Procedures Procedure Name Priority Date/Time Associated Diagnosis Comments SARS-COV-2 BY MOLECULAR Routine 08/18/2022 9:39 AM CDT Encounter for screening for COVID-19 documented in this encounter Results * SARS-COV-2 BY MOLECULAR (08/18/2022 9:39 AM CDT) SARSCOV2 NOT DETECTED (Referen ce Range for this test is Not Detected ) [facility] THERMOFISHER FAST DX 08/19/2022 12:21 AM CDT [facility] Comment:This test was perfor med by a RT-PCR method. Other Non-Phlebotomy Collection / Unknown 08/18/2022 9:39 AM CDT 08/18/2022 10:56 AM CDT Narrative [facility] - 08/19/2022 12:21 AM CDT Authorized Fact Sheets about this test for providers and patients are available at: https://www.fda.gov/medical-devices/klwzcmtxu-iiumkzjxzr-dgmxwfh-devices/emergen -us e-authorizations us John Delgado MD MICROBIOLOGY - GENERAL ORDERAB LES Final Result [facility] [address] [place] [address], documented in this encounter Visit Diagnoses Diagnosis Encounter for screening for COVID-19 documented in this encounter Additional Health Concerns Infection Onset Date Last Indicated Resolved Time COVID - 19 03/03/2022 09/01/2022 09/08/2022 8:21 AM 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 COVID - 19 10/20/2022 01/05/2023 01/15/2023 12:1 6 AM CDT documented as of this encounter Care Teams Java Software Engineer Relationship Specialty Start Date End Date Vanessa Hyman MD PCP - General Family Medicine 09/01/15 10/23/22 Ted Reyes MD #[address] [address] PCP - General Family Medicine 10/24/22 12/08/23 Nani Cloud MD [address] [place] [address] PCP - General Family Medicine 02/09/24 01/10/25 Provider, None [place] PCP - General 03/25/25 04/10/25 John Delgado MD [address] [place] [address] [address] [place] [address] PCP - General Family Medicine 04/11/25 Tapan Guo MD #[address] [address] Consulting Physician Colon and Rectal Surgery 09/21/22 documented as of this encounter
--- OUTSIDE RECORDS SUMMARY | 2025-05-15 09:24 | XMS_ITS | Encounter Summary ---
Author Organization [facility] Address [address] [place] [address] Phone Care Team Providers Care Explosives Detonator Name Role Phone Vanessa Hyman MD Primary Care Provider + [phone] Tapan Guo MD Unavailable Ted Reyes MD Primary Care Provider [phone] Nani Cloud MD Primary Care Provider + [phone] Provider, None Primary Care Provider John Villatoro MD Primary Care Provider [phone] Encounter Details Date Type Department Care Team (Late st Contact Info) Description 07/28/2022 Lab Requisition [facility] Laboratory Services 1 [place] [address] John Delgado MD [address] [place] [address] 210 [place] [address] Encounter for screening for COVID-19 Social History [facility] [address] [place] [phone] John Delgado MD [address] [place] [address] [place] [address] [place] [address] Discharge Disposition: Discharged to home or Selfcare documented as of this encounter Procedures Procedure Name Priority Date/Time Associated Diagnosis Comments SARS-COV-2 BY MOLECULAR Routine 07/28/2022 8:24 AM CDT Encounter for screening for COVID-19 documented in this encounter Results * SARS-COV-2 BY MOLECULAR (07/28/2022 8:24 AM CDT) SARSCOV2 NOT DETECTED (Referen ce Range for this test is Not Detected ) [facility] THERMOFISHER FAST DX 07/29/2022 12:28 AM CDT [facility] Comment:This test was perfor med by a RT-PCR method. Other No Phlebotomy Charged / Unknown 07/28/2022 8:24 AM CDT 07/28/2022 12:31 PM CDT Narrative [facility] - 07/29/2022 12:28 AM CDT Authorized Fact Sheets about this test for providers and patients are available at: https://www.fda.gov/medical-devices/cjudpleok-hcjvitdfeh-jipcwnd-devices/emergen cy-us e-authorizations us John Delgado MD MICROBIOLOGY - GENERAL ORDERAB LES Final Result [facility] [address] [place] [address], [place] documented in this encounter Visit Diagnoses Diagnosis Encounter for screening for COVID-19 documented in this encounter Additional Health Concerns Infection Onset Date Last Indicated Resolved Time COVID - 19 03/03/2022 09/01/2022 09/08/2022 8:21 AM HAND STAMPER COVID - 19 10/20/2022 01/05/2023 01/15/2023 12:1 6 AM CDT documented as of this encounter Care Teams Explosives Detonator Relationship Specialty Start Date End Date Vanessa Hyman MD PCP - General Family Medicine 09/01/15 10/23/22 Ted Reyes MD #[address] [address] PCP - General Family Medicine 10/24/22 12/08/23 Nani Cloud MD [address] [place] [address] PCP - General Family Medicine 02/09/24 01/10/25 Provider, None [place] PCP - General 03/25/25 04/10/25 John Delgado MD [address] [place] [address] [address] [place] [address] PCP - General Family Medicine 04/11/25 Tapan Guo MD #[address] [address] Consulting Physician Colon and Rectal Surgery 09/21/22 documented as of this encounter
--- OUTSIDE RECORDS SUMMARY | 2025-05-15 09:24 | XMS_ITS | Encounter Summary ---
Author Organization [facility] Address [address] [place] [address] Phone Care Team Providers Care Print Inspector Name Role Phone Vanessa Hyman MD Primary Care Provider + [phone] Tapan Guo MD Unavailable Ted Reyes MD Primary Care Provider [phone] Nani Cloud MD Primary Care Provider +[phone] Provider, None Primary Care Provider John Villatoro MD Primary Care Provider [phone] Reason for Visit * Auth/Cert Specialty Diagnoses / Procedures Referred By Pancho t Referred To Contact Diagnoses ENCOUNTER FOR SCREENING FOR MALIGNANT NEOPLASM OF COLON Procedures COLONOSCOPY Ciarra Mendez MD [address] [place] [address] Phone: tel: fax: Referral ID Status Reason Start Date Expiration Date Visits Re quested Visits Authorized [id number] 1 1 Encounter Details Date Type Department Care Team (Late st Contact Info) Description 08/25/2022 Lab Requisition [facility] Laboratory Services 1 [place] [address] John Delgado MD [address] [place] [address] [place] [address] Encounter for screening for COVID-19 [...] Info) Description 08/05/2025 2:45 PM CDT [facility] 1 [place] [address] John Delgado MD [address] [place] [address] [facility] [address] [place] [address] Discharge Disposition: Discharged to home or Selfcare documented as of this encounter Procedures Procedure Name Priority Date/Time Associated Diagnosis Comments SARS-COV-2 BY MOLECULAR Routine 08/25/2022 8:33 AM CDT Encounter for screening for COVID-19 documented in this encounter Results * SARS-COV-2 BY MOLECULAR (08/25/2022 8:33 AM CDT) SARSCOV2 NOT DETECTED (Referen ce Range for this test is Not Detected ) [facility] THERMOFISHER FAST DX 08/26/2022 12:01 AM CDT [facility] Comment:This test was perfor med by a RT-PCR method. Other Non-Phlebotomy Collection / Unknown 08/25/2022 8:33 AM CDT 08/25/2022 12:19 PM CDT Narrative [facility] - 08/26/2022 12:01 AM CDT Authorized Fact Sheets about this test for providers and patients are available at: https://www.fda.gov/medical-devices/mmpewhzeb-ifawcanwej-fjtztvx-devices/emergen cy-us e-authorizations us John Delgado MD MICROBIOLOGY - GENERAL ORDERAB LES Final Result [facility] [address] [place] [address], documented in this encounter Visit Diagnoses Diagnosis Encounter for screening for COVID-19 documented in this encounter Additional Health Concerns Infection Onset Date Last Indicated Resolved Time COVID - 19 03/03/2022 09/01/2022 09/08/2022 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 [address] PCP - General Family Medicine 02/09/24 01/10/25 Provider, None [place] PCP - General 03/25/25 04/10/25 John Delgado MD [address] [place] [address] [facility] [address] [place] [address] PCP - General Family Medicine 04/11/25 Tapan Guo MD #[address] [address] Consulting Physician Colon and Rectal Surgery 09/21/22 documented as of this encounter
--- OUTSIDE RECORDS SUMMARY | 2025-05-15 09:24 | XMS_ITS | Clinical Summary ---
Author Organization [facility] Address [address] [place] [address] Phone Care Team Providers Care Functional Architect Name Role Phone Unavailable Primary Care Provider Unavailabl e Social History Tobacco Use Types Packs/Day Years Used Date Smoking Tobacco: Never Assessed Comments Unknown Sex and Gender Information Value Date Recorded Sex Assigned at Not on file Legal Sex Female 5:04 AM CDT Gender Identity Not on file Sexual Orientation Not on file Plan of Treatment Health Maintenance Due Date Last Done Comments DTAP/TDAP/TD VACCINES (1 - Tdap) 1978 BREAST CANCER SCREENING 1999 COLORECTAL SCREENING 01/31/2004 Colorectal Cancer Screening 01/31/2004 FIT-DNA Q 3 years 01/31/2004 FIT/FOBT Q 1 year 01/31/2004 Flex Sig/CT Colonography Q 5 years 01/31/2004 PNEUMOCOCCAL VACCINE 50+ YEARS (1 of 1 - PCV) 01/31/20 09 ZOSTER VACCINE (1 of 2) 2009 OSTEOPOROSIS SCREENING 01/31/2024 INFLUENZA VACCINE (#1) 2025 RSV VACCINE (60+ or ) (1 - 1-dose 75+ series) 2034 Insurance MEDICARE PART A AND B
--- OUTSIDE RECORDS SUMMARY | 2025-05-15 09:24 | XMS_ITS | Encounter Summary ---
Author Organization [facility] Address [address] [place] [address] Phone Care Team Providers Care Contract Coordinator Name Role Phone Vanessa Hyman MD Primary Care Provider + [phone] Tapan Guo MD Unavailable Ted Reyes MD Primary Care Provider [phone] Nani Cloud MD Primary Care Provider + [phone] Provider, None Primary Care Provider John Villatoro MD Primary Care Provider [phone] Encounter Details Date Type Department Care Team (Late st Contact Info) Description 05/19/2022 [facility] 1 [place] [phone] John Delgado MD [address] [place] [address] [address] [place] [address] Encounter for screening for COVID-19 Social History [...] 08/05/2025 2:45 PM CDT [facility]ment [facility] [address] [place] [address] John Delgado MD [address] [place] [address] [address] [place] [address] Discharge Disposition: Discharged to home or Selfcare documented as of this encounter Procedures Procedure Name Priority Date/Time Associated Diagnosis Comments SARS-COV-2 BY MOLECULAR Routine 05/19/2022 8:30 AM CDT Encounter for screening for COVID-19 documented in this encounter Results * SARS-COV-2 BY MOLECULAR (05/19/2022 8:30 AM CDT) SARSCOV2 NOT DETECTED (Referen ce Range for this test is Not Detected ) [facility] THERMOFISHER FAST DX 05/20/2022 12:23 AM CDT [facility] Comment:This test was perfor med by a RT-PCR method. Other Non-Phlebotomy Collection / Unknown 05/19/2022 8:30 AM CDT 05/19/2022 12:12 PM CDT Narrative [facility] - 05/20/2022 12:23 AM CDT Authorized Fact Sheets about this test for providers and patients are available at: https://www.fda.gov/medical-devices/uafdwdmmi-ysjblqaxhn-yjuwapc-devices/emergen -us e-authorizations us John Delgado MD MICROBIOLOGY - GENERAL ORDERAB LES Final Result [facility] [address] [place] [address], documented in this encounter Visit Diagnoses Diagnosis Encounter for screening for COVID-19 documented in this encounter Additional Health Concerns Infection Onset Date Last Indicated Resolved Time COVID - 19 03/03/2022 09/01/2022 09/08/2022 8:21 AM 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 COVID - 19 10/20/2022 01/05/2023 01/15/2023 12:1 6 AM CDT documented as of this encounter Care Teams Contract Coordinator Relationship Specialty Start Date End Date Vanessa Hyman MD PCP - General Family Medicine 09/01/15 10/23/22 Ted Reyes MD #[address] [address] PCP - General Family Medicine 10/24/22 12/08/23 Nani Cloud MD [address] [place] [address] PCP - General Family Medicine 02/09/24 01/10/25 Provider, None [place] PCP - General 03/25/25 04/10/25 John Delgado MD [address] [place] [address] [address] [place] [address] PCP - General Family Medicine 04/11/25 Tapan Guo MD #[address] [address] Consulting Physician Colon and Rectal Surgery 09/21/22 documented as of this encounter
--- OUTSIDE RECORDS SUMMARY | 2025-05-15 09:24 | XMS_ITS | Encounter Summary ---
Author Organization [facility] Address [address] [place] [address] Phone Care Team Providers Care Controls Engineer Name Role Phone Vanessa Hyman MD Primary Care Provider + [phone] Tapan Guo MD Unavailable Ted Reyes MD Primary Care Provider [phone] Nani Cloud MD Primary Care Provider + [phone] Provider, None Primary Care Provider John Villatoro MD Primary Care Provider [phone] Encounter Details Date Type Department Care Team (Late st Contact Info) Description 03/03/2022 [facility] 1 [place] [phone] John Delgado MD [address] [place] [address] [address] [place] [address] Encounter for screening for COVID-19 Social History [...] Description 08/05/2025 2:45 PM CDT [facility] [address] [place] [address] John Delgado MD [address] [place] [address] [address] [place] [address] Discharge Disposition: Discharged to home or Selfcare documented as of this encounter Procedures Procedure Name Priority Date/Time Associated Diagnosis Comments SARS-COV-2 BY MOLECULAR Routine 03/03/2022 9:23 AM CDT Encounter for screening for COVID-19 documented in this encounter Results * SARS-COV-2 BY MOLECULAR (03/03/2022 9:23 AM CDT) SARSCOV2 NOT DETECTED (Referen ce Range for this test is Not Detected ) [facility] THERMOFISHER FAST DX 03/04/2022 10:12 AM CDT [facility] Comment:This test was perfor med by a RT-PCR method. Other Non-Phlebotomy Collection / Unknown 03/03/2022 9:23 AM CDT 03/03/2022 11:44 AM CDT Narrative [facility] - 03/04/2022 10:12 AM CDT Authorized Fact Sheets about this test for providers and patients are available at: https://www.fda.gov/medical-devices/jpqxadwcp-vbkaefkqoq-kxcynqd-devices/emergen -us e-authorizations us John Delgado MD MICROBIOLOGY - GENERAL ORDERAB LES Final Result [facility] [address] [place] [address], documented in this encounter Visit Diagnoses Diagnosis Encounter for screening for COVID-19 documented in this encounter Additional Health Concerns Infection Onset Date Last Indicated Resolved Time COVID - 19 03/03/2022 09/01/2022 09/08/2022 8:21 AM SUPERVISOR 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 COVID - 19 10/20/2022 01/05/2023 01/15/2023 12:1 6 AM CDT documented as of this encounter Care Teams Controls Engineer Relationship Specialty Start Date End Date Vanessa Hyman MD PCP - General Family Medicine 09/01/15 10/23/22 Ted Reyes MD #[address] [address] PCP - General Family Medicine 10/24/22 12/08/23 Nani Cloud MD [address] [place] [address] PCP - General Family Medicine 02/09/24 01/10/25 Provider, None [place] PCP - General 03/25/25 04/10/25 John Delgado MD [address] [place] [address] [address] [place] [address] PCP - General Family Medicine 04/11/25 Tapan Guo MD #[address] [address] Consulting Physician Colon and Rectal Surgery 09/21/22 documented as of this encounter
--- OUTSIDE RECORDS SUMMARY | 2025-05-15 09:24 | XMS_ITS | Encounter Summary ---
Author Organization [facility] Address [address] [place] [address] Phone Care Team Providers Care Sign Board Erector Name Role Phone Vanessa Hyman MD Primary Care Provider + [phone] Tapan Guo MD Unavailable Ted Reyes MD Primary Care Provider [phone] Nani Cloud MD Primary Care Provider + [phone] Provider, None Primary Care Provider John Villatoro MD Primary Care Provider [phone] Encounter Details Date Type Department Care Team (Late st Contact Info) Description 03/10/2022 [facility] 1 [place] [phone] John Delgado MD [address] [place] [address] 210 [place] [address] Encounter for screening for COVID-19 Social History [...] [facility] [address] [place] [address] John Delgado MD [address] [place] [address] [address] [place] [address] Discharge Disposition: Discharged to home or Selfcare documented as of this encounter Procedures Procedure Name Priority Date/Time Associated Diagnosis Comments SARS-COV-2 BY MOLECULAR Routine 03/10/2022 9:33 AM CDT Encounter for screening for COVID-19 documented in this encounter Results * SARS-COV-2 BY MOLECULAR (03/10/2022 9:33 AM CDT) SARSCOV2 NOT DETECTED (Referen ce Range for this test is Not Detected ) [facility] THERMOFISHER FAST DX 03/11/2022 6:32 PM CDT [facility] Comment:This test was perfor med by a RT-PCR method. Other Non-Phlebotomy Collection / Unknown 03/10/2022 9:33 AM CDT 03/10/2022 10:48 AM CDT Narrative [facility] - 03/11/2022 6:32 PM CDT Authorized Fact Sheets about this test for providers and patients are available at: https://www.fda.gov/medical-devices/iwvidwbtu-jvassyolcg-uxnnglg-devices/emergen -us e-authorizations us John Delgado MD MICROBIOLOGY - GENERAL ORDERAB LES Final Result [facility] [address] [place] [address], documented in this encounter Visit Diagnoses Diagnosis Encounter for screening for COVID-19 documented in this encounter Additional Health Concerns Infection Onset Date Last Indicated Resolved Time COVID - 19 03/03/2022 09/01/2022 09/08/2022 8:21 AM BREAKER 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 COVID - 19 10/20/2022 01/05/2023 01/15/2023 12:1 6 AM CDT documented as of this encounter Care Teams Sign Board Erector Relationship Specialty Start Date End Date Vanessa Hyman MD PCP - General Family Medicine 09/01/15 10/23/22 Ted Reyes MD #[address] [address] PCP - General Family Medicine 10/24/22 12/08/23 Nani Cloud MD [address] [place] [address] PCP - General Family Medicine 02/09/24 01/10/25 Provider, None [place] PCP - General 03/25/25 04/10/25 John Delgado MD [address] [place] [address] [address] [place] [address] PCP - General Family Medicine 04/11/25 Tapan Guo MD #[address] [address] Consulting Physician Colon and Rectal Surgery 09/21/22 documented as of this encounter
--- OUTSIDE RECORDS SUMMARY | 2025-05-15 09:24 | XMS_ITS | Encounter Summary ---
Author Organization [facility] Address [address] [place] [address] Phone Care Team Providers Care Clutch Specialist Name Role Phone Vanessa Hyman MD Primary Care Provider + [phone] Tapan Guo MD Unavailable Ted Reyes MD Primary Care Provider [phone] Nani Cloud MD Primary Care Provider + [phone] Provider, None Primary Care Provider John Villatoro MD Primary Care Provider [phone] Encounter Details Date Type Department Care Team (Late st Contact Info) Description 07/14/2022 Lab Requisition [facility] Services 1 [place] [address] oJhn Delgado MD [address] [place] [address] [address] [place] [address] Encounter for screening for COVID-19 Social History [...] Info) Description 08/05/2025 2:45 PM CDT Appointment [facility] [address] [place] [address] John Delgado MD [address] [place] [address] [address] [place] [address] Discharge Disposition: Discharged to home or Selfcare documented as of this encounter Procedures Procedure Name Priority Date/Time Associated Diagnosis Comments SARS-COV-2 BY MOLECULAR Routine 07/14/2022 8:24 AM CDT Encounter for screening for COVID-19 documented in this encounter Results * SARS-COV-2 BY MOLECULAR (07/14/2022 8:24 AM CDT) SARSCOV2 NOT DETECTED (Referen ce Range for this test is Not Detected ) [facility] THERMOFISHER FAST DX 07/15/2022 10:23 AM CDT [facility] Comment:This test was perfor med by a RT-PCR method. Other Non-Phlebotomy Collection / Unknown 07/14/2022 8:24 AM CDT 07/14/2022 11:08 AM CDT Narrative [facility] - 07/15/2022 10:23 AM CDT Authorized Fact Sheets about this test for providers and patients are available at: https://www.fda.gov/medical-devices/raihwhghh-ouwirumxok-ctllzjz-devices/emergen cy-us e-authorizations us John Delgado MD MICROBIOLOGY - GENERAL ORDERAB LES Final Result [facility] [address] [place] [address], [place] documented in this encounter Visit Diagnoses Diagnosis Encounter for screening for COVID-19 documented in this encounter Additional Health Concerns Infection Onset Date Last Indicated Resolved Time COVID - 19 03/03/2022 09/01/2022 09/08/2022 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 [address] PCP - General Family Medicine 02/09/24 01/10/25 Provider, None [place] PCP - General 03/25/25 04/10/25 John Delgado MD [address] [place] [address] [address] [place] [address] PCP - General Family Medicine 04/11/25 Tapan Guo MD #[address] [address] Consulting Physician Colon and Rectal Surgery 09/21/22 documented as of this encounter
--- OUTSIDE RECORDS SUMMARY | 2025-05-15 09:24 | XMS_ITS | Encounter Summary ---
Author Organization [facility] Address [address] [place] [address] Phone Care Team Providers Care Railroad Construction Director Name Role Phone Tapan Guo MD Unavailable Ted Reyes MD Primary Care Provider [phone] Nani Cloud MD Primary Care Provider [phone] Provider, None Primary Care Provider John Villatoro MD Primary Care Provider [phone] Encounter Details Date Type Department Care Team (Late st Contact Info) Description 12/08/2022 Lab Requisition [facility] Laboratory Services 1 [place] [address] John Delgado MD [address] [place] [address] [address] [place] [address] Encounter for screening for COVID-19 [...] Coronavirus/COVID-19? No / Unsure 12/06/2022 10:30 AM CLIENT SERVICE PROFESSIONAL documented as of this encounter Plan of Treatment Upcoming Encounters Date Type Department Care Team (Late st Contact Info) Description 08/05/2025 2:45 PM CDT [facility] [address] [place] [address] John Delgado MD [address] [place] [address] [address] [place] [address] Discharge Disposition: Discharged to home or Selfcare documented as of this encounter Procedures Procedure Name Priority Date/Time Associated Diagnosis Comments SARS-COV-2 BY MOLECULAR Routine 12/08/2022 12:41 PM CLIENT SERVICE PROFESSIONAL Encounter for screening for COVID-19 documented in this encounter Results * SARS-COV-2 BY MOLECULAR (12/08/2022 12:41 PM CLIENT SERVICE PROFESSIONAL) SARSCOV2 NOT DETECTED (Referen ce Range for this test is Not Detected ) [facility] THERMOFISHER FAST DX 12/08/2022 11:48 PM CLIENT SERVICE PROFESSIONAL [facility] Comment:This test was perfor med by a RT-PCR method. Other Non-Phlebotomy Collection / Unknown 12/08/2022 12:41 PM CLIENT SERVICE PROFESSIONAL 12/08/2022 1:54 PM CLIENT SERVICE PROFESSIONAL [facility]ative [facility] - 12/08/2022 11:48 PM CLIENT SERVICE PROFESSIONAL Authorized Fact Sheets about this test for providers and patients are available at: https://www.fda.gov/medical-devices/fjaosntfe-ucowelzlvj-rmiphzj-devices/emergen -us e-authorizations us John Delgado MD MICROBIOLOGY - GENERAL ORDERAB LES Final Result [facility] [address] [place] [address], documented in this encounter Visit Diagnoses Diagnosis Encounter for screening for COVID-19 documented in this encounter Additional Health Concerns Infection Onset Date Last Indicated Resolved Time COVID - 19 10/20/2022 01/05/2023 01/15/2023 12:1 6 AM CDT documented as of this encounter Care Teams Railroad Construction Director Relationship Specialty Start Date End Date Ted Reyes MD #[address] [address] PCP - General Family Medicine 10/24/22 12/08/23 Nani Cloud MD [address] [place] [address] PCP - General Family Medicine 02/09/24 01/10/25 Provider, None [place] PCP - General 03/25/25 04/10/25 John Delgado MD [address] [place] [address] [address] [place] [address] PCP - General Family Medicine 04/11/25 Tapan Guo MD #[address] [address] Consulting Physician Colon and Rectal Surgery 09/21/22 documented as of this encounter
--- OUTSIDE RECORDS SUMMARY | 2025-05-15 09:24 | XMS_ITS | Encounter Summary ---
Author Organization [facility] Address [address] [place] [address] Phone Care Team Providers Care Assemblies And Installations Inspector Name Role Phone Vanessa Hymna MD Primary Care Provider + [phone] Tapan Guo MD Unavailable Ted Reyes MD Primary Care Provider [phone] Nani Cloud MD Primary Care Provider + [phone] Provider, None Primary Care Provider John Villatoro MD Primary Care Provider [phone] Encounter Details Date Type Department Care Team (Late st Contact Info) Description 03/24/2022 [facility] 1 [place] [phone] John Delgado MD [address] [place] [address] [address] [place] [address] Encounter for screening for COVID-19 Social History [...] 08/05/2025 2:45 PM CDT [facility] [address] [place] [address] John Delgado MD [address] [place] [address] [address] [place] [address] Discharge Disposition: Discharged to home or Selfcare documented as of this encounter Procedures Procedure Name Priority Date/Time Associated Diagnosis Comments SARS-COV-2 BY MOLECULAR Routine 03/24/2022 9:05 AM CDT Encounter for screening for COVID-19 documented in this encounter Results * SARS-COV-2 BY MOLECULAR (03/24/2022 9:05 AM CDT) SARSCOV2 NOT DETECTED (Referen ce Range for this test is Not Detected ) [facility] THERMOFISHER FAST DX 03/25/2022 8:04 AM CDT [facility] Comment:This test was perfor med by a RT-PCR method. Other Non-Phlebotomy Collection / Unknown 03/24/2022 9:05 AM CDT 03/24/2022 12:09 PM CDT Narrative [facility] - 03/25/2022 8:04 AM CDT Authorized Fact Sheets about this test for providers and patients are available at: https://www.fda.gov/medical-devices/wsxlpdqaf-ttacxyvkur-nduidjx-devices/emergen -us e-authorizations us John Delgado MD MICROBIOLOGY - GENERAL ORDERAB LES Final Result [facility] [address] [place] [address], documented in this encounter Visit Diagnoses Diagnosis Encounter for screening for COVID-19 documented in this encounter Additional Health Concerns Infection Onset Date Last Indicated Resolved Time COVID - 19 03/03/2022 09/01/2022 09/08/2022 8:21 AM GEAR HOBBER COVID - 19 10/20/2022 01/05/2023 01/15/2023 12:1 6 AM CDT documented as of this encounter Care Teams Assemblies And Installations Inspector Relationship Specialty Start Date End Date Vanessa Hyman MD PCP - General Family Medicine 09/01/15 10/23/22 Ted Reyes MD #[address] [address] PCP - General Family Medicine 10/24/22 12/08/23 Nani Cloud MD [address] [place] [address] PCP - General Family Medicine 02/09/24 01/10/25 Provider, None [place] PCP - General 03/25/25 04/10/25 John Delgado MD [address] [place] [address] [address] [place] [address] PCP - General Family Medicine 04/11/25 Tapan Guo MD #[address] [address] Consulting Physician Colon and Rectal Surgery 09/21/22 documented as of this encounter
--- OUTSIDE RECORDS SUMMARY | 2025-05-15 09:25 | XMS_ITS | Encounter Summary ---
Author Organization [facility] Address [address] [place] [address] Phone Care Team Providers Care Investigation Division Lieutenant Name Role Phone Vanessa Hyman MD Primary Care Provider + [phone] Tapan Guo MD Unavailable Ted Reyes MD Primary Care Provider [phone] Nani Cloud MD Primary Care Provider + [phone] Provider, None Primary Care Provider John Villatoro MD Primary Care Provider [phone] Encounter Details Date Type Department Care Team (Late st Contact Info) Description [facility]/23[facility] 1 [place] [phone] John Delgado MD [address] [place] [address] [address] [place] [address] Encounter for screening for COVID-19 Social History [...] Info) Description 08/05/2025 2:45 PM CDT [facility] [address] [place] [address] John Delgado MD [address] [place] [address] [address] [place] [address] Discharge Disposition: Discharged to home or Selfcare documented as of this encounter Procedures Procedure Name Priority Date/Time Associated Diagnosis Comments SARS-COV-2 BY MOLECULAR Routine 09/23/2021 8:30 AM SENIOR DATA DEVELOPER documented in this encounter Results * SARS-COV-2 BY MOLECULAR (09/23/2021 8:30 AM SENIOR DATA DEVELOPER) SARSCOV2 NOT DETECTED (Referen ce Range for this test is Not Detected ) [facility] THERMOFISHER FAST DX 09/23/2021 11:54 PM SENIOR DATA DEVELOPER [facility] Comment:This test was perfor med by a RT-PCR method. Other No Phlebotomy Charged / Unknown 09/23/2021 8:30 AM SENIOR DATA DEVELOPER 09/23/2021 10:51 AM SENIOR DATA DEVELOPER Narrative [facility] - 09/23/2021 11:54 PM SENIOR DATA DEVELOPER Authorized Fact Sheets about this test for providers and patients are available at: https://www.fda.gov/medical-devices/ikkafbpxp-xqbdhxbzdx-ljpaesb-devices/emergen -us e-authorizations us John Delgado MD MICROBIOLOGY - GENERAL ORDERAB LES Final Result [facility] [address] [place] [address], documented in this encounter Visit Diagnoses Diagnosis Encounter for screening for COVID-19 documented in this encounter Additional Health Concerns Infection Onset Date Last Indicated Resolved Time COVID - 19 07/15/2021 12/02/2021 12/02/2021 11:4 9 PM SENIOR DATA DEVELOPER COVID - 19 Confirmed 12/02/2021 12/02/2021 022 12:16 AM SENIOR DATA DEVELOPER COVID - 19 12/16/2021 12/16/2021 01/05/2022 12:1 8 AM CDT COVID - 19 03/03/2022 09/01/2022 09/08/2022 8:21 AM SENIOR DATA DEVELOPER COVID - 10/20/2022 01/05/2023 01/15/2023 12:1 6 AM CDT documented as of this encounter Care Teams Investigation Division Lieutenant Relationship Specialty Start Date End Date Vanessa Hyman MD PCP - General Family Medicine 09/01/15 10/23/22 Ted Reyes MD #[address] [address] PCP - General Family Medicine 10/24/22 12/08/23 Nani Cloud MD [address] [place] [address] PCP - General Family Medicine 02/09/24 01/10/25 Provider, None [place] PCP - General 03/25/25 04/10/25 John Delgado MD [address] [place] [address] [address] [place] [address] PCP - General Family Medicine 04/11/25 aTpan Guo MD #[address] [address] Consulting Physician Colon and Rectal Surgery 09/21/22 documented as of this encounter
--- OUTSIDE RECORDS SUMMARY | 2025-05-15 09:25 | XMS_ITS | Encounter Summary ---
Author Organization [facility] Address [address] [place] [address] Phone Care Team Providers Care Technology Development Intern Name Role Phone Vanessa Hyman MD Primary Care Provider + [phone] Tapan Guo MD Unavailable Ted Reyes MD Primary Care Provider [phone] Nani Cloud MD Primary Care Provider + [phone] Provider, None Primary Care Provider John Villatoro MD Primary Care Provider [phone] Encounter Details Date Type Department Care Team (Late st Contact Info) Description 09/02/2021 [facility] 1 [place] [phone] John Delgado MD [address] [place] [address] [address] [place] [address] Encounter for screening for COVID-19 Social History [...] Info) Description 08/05/2025 2:45 PM CDT [facility]ment [facility] [address] [place] [address] John Delgado MD [address] [place] [address] [address] [place] [address] Discharge Disposition: Discharged to home or Selfcare documented as of this encounter Procedures Procedure Name Priority Date/Time Associated Diagnosis Comments SARS-COV-2 BY MOLECULAR Routine 09/02/2021 8:46 AM STRUCTURAL STEEL ERECTOR Encounter for screening for COVID-19 documented in this encounter Results * SARS-COV-2 BY MOLECULAR (09/02/2021 8:46 AM STRUCTURAL STEEL ERECTOR) SARSCOV2 NOT DETECTED (Referen ce Range for this test is Not Detected ) [facility] THERMOFISHER FAST DX 09/03/2021 1:33 PM STRUCTURAL STEEL ERECTOR [facility] Comment:This test was perfor med by a RT-PCR method. Other No Phlebotomy Charged / Unknown 09/02/2021 8:46 AM STRUCTURAL STEEL ERECTOR 09/02/2021 10:46 AM STRUCTURAL STEEL ERECTOR Narrative [facility] - 09/03/2021 1:33 PM STRUCTURAL STEEL ERECTOR Authorized Fact Sheets about this test for providers and patients are available at: https://www.fda.gov/medical-devices/teqvmrluw-yuenenbhqp-hkamkst-devices/emergen -us e-authorizations us John Delgado MD MICROBIOLOGY - GENERAL ORDERAB LES Final Result [facility] [address] [place] [address], documented in this encounter Visit Diagnoses Diagnosis Encounter for screening for COVID-19 documented in this encounter Additional Health Concerns Infection Onset Date Last Indicated Resolved Time COVID - 19 07/15/2021 12/02/2021 12/02/2021 11:4 9 PM STRUCTURAL STEEL ERECTOR COVID - 19 Confirmed 12/02/2021 12/02/2021 022 12:16 AM STRUCTURAL STEEL ERECTOR COVID - 19 12/16/2021 12/16/2021 01/05/2022 12:1 8 AM CDT COVID - 19 03/03/2022 09/01/2022 09/08/2022 8:21 AM STRUCTURAL STEEL ERECTOR COVID - 19 10/20/2022 01/05/2023 01/15/2023 12:1 6 AM CDT documented as of this encounter Care Teams Technology Development Intern Relationship Specialty Start Date End Date Vanessa Hyman MD PCP - General Family Medicine 09/01/15 10/23/22 Ted Reyes MD #[address] [address] PCP - General Family Medicine 10/24/22 12/08/23 Nani Cloud MD [address] [place] [address] PCP - General Family Medicine 02/09/24 01/10/25 Provider, None [place] PCP - General 03/25/25 04/10/25 John Delgado MD 4 [facility] [address] [place] [address] PCP - General Family Medicine 04/11/25 Tapan Guo MD #[address] [address] Consulting Physician Colon and Rectal Surgery 09/21/22 documented as of this encounter
--- OUTSIDE RECORDS SUMMARY | 2025-05-15 09:25 | XMS_ITS | Encounter Summary ---
Author Organization [facility] Address [address] [place] [address] Phone Care Team Providers Care Ivory Polisher Name Role Phone Vanessa Hyman MD Primary Care Provider + [phone] Tapan Guo MD Unavailable Ted Reyes MD Primary Care Provider [phone] Nani Cloud MD Primary Care Provider + [phone] Provider, None Primary Care Provider John Villatoro MD Primary Care Provider [phone] Encounter Details Date Type Department Care Team (Late st Contact Info) Description 10/21/2021 [facility] 1 [place] [phone] John Delgado MD [address] [place] [address] [address] [place] [address] Encounter for screening for COVID-19 Social History [...] Info) Description 08/05/2025 2:45 PM CDT [facility] [address] [place] [address] John Delgado MD [address] [place] [address] [address] [place] [address] Discharge Disposition: Discharged to home or Selfcare documented as of this encounter Procedures Procedure Name Priority Date/Time Associated Diagnosis Comments SARS-COV-2 BY MOLECULAR Routine 10/21/2021 8:37 AM PIPELINE CONSTRUCTION INSPECTOR Encounter for screening for COVID-19 documented in this encounter Results * SARS-COV-2 BY MOLECULAR (10/21/2021 8:37 AM PIPELINE CONSTRUCTION INSPECTOR) SARSCOV2 NOT DETECTED (Referen ce Range for this test is Not Detected ) [facility] THERMOFISHER FAST DX 10/24/2021 11:18 AM PIPELINE CONSTRUCTION INSPECTOR [facility] Comment:This test was perfor med by a RT-PCR method. Other No Phlebotomy Charged / Unknown 10/21/2021 8:37 AM PIPELINE CONSTRUCTION INSPECTOR 10/21/2021 12:24 PM PIPELINE CONSTRUCTION INSPECTOR Narrative [facility] - 10/24/2021 11:18 AM PIPELINE CONSTRUCTION INSPECTOR Authorized Fact Sheets about this test for providers and patients are available at: https://www.fda.gov/medical-devices/sifijzkpp-fsmmvczrcc-auzohqk-devices/emergen -us e-authorizations us John Delgado MD MICROBIOLOGY - GENERAL ORDERAB LES Final Result [facility] [address] [place] [address], documented in this encounter Visit Diagnoses Diagnosis Encounter for screening for COVID-19 documented in this encounter Additional Health Concerns Infection Onset Date Last Indicated Resolved Time COVID - 19 07/15/2021 12/02/2021 12/02/2021 11:4 9 PM PIPELINE CONSTRUCTION INSPECTOR COVID - 19 Confirmed 12/02/2021 12/02/2021 022 12:16 AM PIPELINE CONSTRUCTION INSPECTOR COVID - 19 12/16/2021 12/16/2021 01/05/2022 12:1 8 AM CDT COVID - 19 03/03/2022 09/01/2022 09/08/2022 8:21 AM PIPELINE CONSTRUCTION INSPECTOR COVID - 19 10/20/2022 01/05/2023 01/15/2023 12:1 6 AM CDT documented as of this encounter Care Teams Ivory Polisher Relationship Specialty Start Date End Date Vanessa Hyman MD PCP - General Family Medicine 09/01/15 10/23/22 Ted Reyes MD #[address] [address] PCP - General Family Medicine 10/24/22 12/08/23 Nani Cloud MD [address] [place] [address] PCP - General Family Medicine 02/09/24 01/10/25 Provider, None [place] PCP - General 03/25/25 04/10/25 John Delgado MD 4 [facility] [address] [place] [address] PCP - General Family Medicine 04/11/25 Tapan Guo MD #[address] [address] Consulting Physician Colon and Rectal Surgery 09/21/22 documented as of this encounter
--- OUTSIDE RECORDS SUMMARY | 2025-05-15 09:25 | XMS_ITS | Encounter Summary ---
Author Organization [facility] Address [address] [place] [address] Phone Care Team Providers Care Learning And Development Coordinator Name Role Phone Vanessa Hyman MD Primary Care Provider + [phone] Tapan Guo MD Unavailable Ted Reyes MD Primary Care Provider [phone] Nani Cloud MD Primary Care Provider + [phone] Provider, None Primary Care Provider John Villatoro MD Primary Care Provider [phone] Encounter Details Date Type Department Care Team (Late st Contact Info) Description 09/09/2021 [facility] 1 [place] [phone] John Delgado MD [address] [place] [address] [address] [place] [address] Social History Tobacco Use Types Packs/Day Years [...] Description 08/05/2025 2:45 PM CDT [facility] [address] [place] [address] John Delgado MD [address] [place] [address] [place] [address] Discharge Disposition: Discharged to home or Selfcare documented as of this encounter Procedures Procedure Name Priority Date/Time Associated Diagnosis Comments SARS-COV-2 BY MOLECULAR Routine 09/09/2021 8:45 AM INTEGRATED LOGISTICS PROGRAMS DIRECTOR documented in this encounter Results * SARS-COV-2 BY MOLECULAR (09/09/2021 8:45 AM INTEGRATED LOGISTICS PROGRAMS DIRECTOR) SARSCOV2 NOT DETECTED (Referen ce Range for this test is Not Detected ) [facility] THERMOFISHER FAST DX 09/10/2021 9:14 AM INTEGRATED LOGISTICS PROGRAMS DIRECTOR [facility] Comment:This test was perfor med by a RT-PCR method. Other Non-Phlebotomy Collection / Unknown 09/09/2021 8:45 AM INTEGRATED LOGISTICS PROGRAMS DIRECTOR 09/09/2021 11:14 AM INTEGRATED LOGISTICS PROGRAMS DIRECTOR Narrative [facility] - 09/10/2021 9:14 AM INTEGRATED LOGISTICS PROGRAMS DIRECTOR Authorized Fact Sheets about this test for providers and patients are available at: https://www.fda.gov/medical-devices/nbjanvlsp-mgehbgfhkm-piqmdua-devices/emergen cy-us e-authorizations John Delgado MD MICROBIOLOGY - GENERAL ORDERAB LES Final Result [facility] [address] [place] [address], documented in this encounter Visit Diagnoses Not on filedocumented in this encounter Additional Health Concerns Infection Onset Date Last Indicated Resolved Time COVID - 19 07/15/2021 12/02/2021 12/02/2021 11:4 9 PM INTEGRATED LOGISTICS PROGRAMS DIRECTOR COVID - 19 Confirmed 12/02/2021 12/02/2021 022 12:16 AM INTEGRATED LOGISTICS PROGRAMS DIRECTOR COVID - 19 12/16/2021 12/16/2021 01/05/2022 12:1 8 AM CDT COVID - 19 03/03/2022 09/01/2022 09/08/2022 8:21 AM INTEGRATED LOGISTICS PROGRAMS DIRECTOR COVID - 19 10/20/2022 01/05/2023 01/15/2023 12:1 6 AM CDT documented as of this encounter Care Teams Learning And Development Coordinator Relationship Specialty Start Date End Date Vanessa Hyman MD PCP - General Family Medicine 09/01/15 10/23/22 Ted Reyes MD #[address] [address] PCP - General Family Medicine 10/24/22 12/08/23 Nani Cloud MD [address] [place] [address] PCP - General Family Medicine 02/09/24 01/10/25 Provider, None [place] PCP - General 03/25/25 04/10/25 John Delgado MD [address] [place] [address] [address] [place] [address] PCP - General Family Medicine 04/11/25 Tapan Guo MD #[address] [address] Consulting Physician Colon and Rectal Surgery 09/21/22 documented as of this encounter
--- OUTSIDE RECORDS SUMMARY | 2025-05-15 09:25 | XMS_ITS | Encounter Summary ---
Author Organization [facility] Address [address] [place] [address] Phone Care Team Providers Care Lining Maker Name Role Phone Tapan Guo MD Unavailable Ted Reyes MD Primary Care Provider [phone] Nani Cloud MD Primary Care Provider [phone] Provider, None Primary Care Provider John Villatoro MD Primary Care Provider [phone] Reason for Visit * Reason Comments Medication Refill Encounter Details Date Type Department Care Team (Late st Contact Info) Description 09/21/2023 Refill [facility] - Family Medicine [facility] [address] [place] [address] Ted Reyes MD #1 [place] [address] Medication Refill Social History Tobacco Use Types Packs/Day Years [...] on file documented as of this encounter Miscellaneous Notes * Telephone Encounter - Inés Celaya RN - 09/21/2023 11:27 AM CST Medication failed the protocol, provider to review and approve the medication order if appropriate. Requested Prescriptions Pending Prescriptions Disp Refills Calcium Carbonate 1500 (600 Ca) MG Tablet [Pharmacy Med Name: CALCIUM 600 MG TABLET] 56 Tablet 2 Sig: TAKE (1) TABLET BY MOUTH TWICE DAILY. Minerals Calcium Supplementation Protocol Failed - 09/21/2023 10:47 AM Failed - Calcium on record in past 12 months CALCIUM Date Value Ref Range Status 09/08/2022 8.9 8.9 - 10.3 mg/dL Final Failed - Vitamin D on record in past 12 months No results found for: VTMD Passed - Visit with relevant provider in past 12 months or upcoming 90 days Recent Visits Date Type Provider Dept 06/28/23 Nursing Facility Ted Reyes MD [facility] 06/07/23 [facility] Ted Reyes MD [facility] 03/15/23 [facility] Ted Reyes MD [facility] 01/18/23 [facility]yes MD [facility] Ted Reyes MD [facility] 09/22/22 [facility] Vanessa Hyman MD [facility] Showing recent visits within past 365 days and meeting all other requirements Future Appointments No visits were found meeting these conditions. Showing future appointments within next 90 days and meeting all other requirements FIC MONITOR SPECIALIST documented in this encounter Plan of Treatment Upcoming Encounters Date Type Department Care Team (Late st Contact Info) Description 08/05/2025 2:45 PM CDT [facility] 1 [facility] [place] [address] John Delgado MD [address] [place] [address] [place] [address] Discharge Disposition: Discharged to home or Selfcare documented as of this encounter Visit Diagnoses Not on filedocumented in this encounter Care Teams Lining Maker Relationship Specialty Start Date End Date Ted Reyes MD [facility] [address] [address] PCP - General Family Medicine 10/24/22 12/08/23 Nani Cloud MD [address] [place] [address] PCP - General Family Medicine 02/09/24 01/10/25 Provider, None [place] PCP - General 03/25/25 04/10/25 John Delgado MD 4 [facility] [address] [place] [address] PCP - General Family Medicine 04/11/25 Tapan Guo MD [facility] [address] [address] Consulting Physician Colon and Rectal Surgery 09/21/22 documented as of this encounter
--- OUTSIDE RECORDS SUMMARY | 2025-05-15 09:25 | XMS_ITS | Encounter Summary ---
Author Organization [facility] Address [address] [place] [address] Phone Care Team Providers Care Reinstatement Clerk Name Role Phone Vanessa Hyman MD Primary Care Provider + [phone] Tapan Guo MD Unavailable Ted Reyes MD Primary Care Provider [phone] Nani Cloud MD Primary Care Provider + [phone] Provider, None Primary Care Provider John Villatoro MD Primary Care Provider [phone] Encounter Details Date Type Department Care Team (Late st Contact Info) Description 08/19/[address] 1 [place] [phone] John Delgado MD [address] [place] [address] [address] [place] [address] Encounter for screening for COVID-19 Social History [...] Info) Description 08/05/2025 2:45 PM CDT [facility] [address] [place] [address] John Delgado MD [address] [place] [address] [address] [place] [address] Discharge Disposition: Discharged to home or Selfcare documented as of this encounter Procedures Procedure Name Priority Date/Time Associated Diagnosis Comments SARS-COV-2 BY MOLECULAR Routine 08/19/2021 8:36 AM CDT Encounter for screening for COVID-19 documented in this encounter Results * SARS-COV-2 BY MOLECULAR (08/19/2021 8:36 AM CDT) SARSCOV2 NOT DETECTED (Referen ce Range for this test is Not Detected ) [facility] THERMOFISHER FAST DX 08/20/2021 7:12 AM CDT [facility] Comment:This test was perfor med by a RT-PCR method. Other Non-Phlebotomy Collection / Unknown 08/19/2021 8:36 AM CDT 08/19/2021 11:30 AM CDT Narrative [facility] - 08/20/2021 7:12 AM CDT Authorized Fact Sheets about this test for providers and patients are available at: https://www.fda.gov/medical-devices/fkfaxvjhm-wtnvgeyyjc-vnrnouj-devices/emergen -us e-authorizations us John Delgado MD MICROBIOLOGY - GENERAL ORDERAB LES Final Result [facility] [address] [place] [address], documented in this encounter Visit Diagnoses Diagnosis Encounter for screening for COVID-19 documented in this encounter Additional Health Concerns Infection Onset Date Last Indicated Resolved Time COVID - 19 07/15/2021 12/02/2021 12/02/2021 11:4 9 PM LEAD INVESTIGATOR COVID - 19 Confirmed 12/02/2021 12/02/2021 022 12:16 AM LEAD INVESTIGATOR COVID - 19 12/16/2021 12/16/2021 01/05/2022 12:1 8 AM CDT COVID - 19 03/03/2022 09/01/2022 09/08/2022 8:21 AM LEAD INVESTIGATOR COVID - 19 10/20/2022 01/05/2023 01/15/2023 12:1 6 AM CDT documented as of this encounter Care Teams Reinstatement Clerk Relationship Specialty Start Date End Date Vanessa Hyman MD PCP - General Family Medicine 09/01/15 10/23/22 Ted Reyes MD #[address] [address] PCP - General Family Medicine 10/24/22 12/08/23 Nani Cloud MD [address] [facility] [place] [address] PCP - General Family Medicine 02/09/24 01/10/25 Provider, None [place] PCP - General 03/25/25 04/10/25 John Delgado MD [address] [place] [address] [address] [place] [address] PCP - General Family Medicine 04/11/25 Tapan Guo MD #[address] [address] Consulting Physician Colon and Rectal Surgery 09/21/22 documented as of this encounter
--- OUTSIDE RECORDS SUMMARY | 2025-05-15 09:25 | XMS_ITS | Encounter Summary ---
Author Organization [facility] Address [address] [place] [address] Phone Care Team Providers Care Box Folding Machine Operator Name Role Phone Vanessa Hyman MD Primary Care Provider + [phone] Tapan Guo MD Unavailable Ted Reyes MD Primary Care Provider [phone] Nani Cloud MD Primary Care Provider + [phone] Provider, None Primary Care Provider John Villatoro MD Primary Care Provider [phone] Encounter Details Date Type Department Care Team (Late st Contact Info) Description 08/12/2021 [facility] 1 [place] [phone] John Delgado MD [address] [place] [address] [address] [place] [address] Encounter for screening for COVID-19 Social History [...] Info) Description 08/05/2025 2:45 PM CDT [facility] [address] [place] [address] John Delgado MD [address] [place] [address] [address] [place] [address] Discharge Disposition: Discharged to home or Selfcare documented as of this encounter Procedures Procedure Name Priority Date/Time Associated Diagnosis Comments SARS-COV-2 BY MOLECULAR Routine 08/12/2021 8:59 AM CDT Encounter for screening for COVID-19 documented in this encounter Results * SARS-COV-2 BY MOLECULAR (08/12/2021 8:59 AM CDT) SARSCOV2 NOT DETECTED (Referen ce Range for this test is Not Detected ) [facility] THERMOFISHER FAST DX 08/13/2021 8:50 AM [facility] Comment:This test was perfor med by a RT-PCR method. Other Non-Phlebotomy Collection / Unknown 08/12/2021 8:59 AM CDT 08/12/2021 11:07 AM CDT Narrative [facility] - 08/13/2021 8:50 AM CDT Authorized Fact Sheets about this test for providers and patients are available at: https://www.fda.gov/medical-devices/whzsouxdg-ecizgoskre-cicgpii-devices/emergen -us e-authorizations us John Delgado MD MICROBIOLOGY - GENERAL ORDERAB LES Final Result [facility] [address] [place] [address], documented in this encounter Visit Diagnoses Diagnosis Encounter for screening for COVID-19 documented in this encounter Additional Health Concerns Infection Onset Date Last Indicated Resolved Time COVID - 19 07/15/2021 12/02/2021 12/02/2021 11:4 9 PM KRAFT MILL OPERATOR COVID - 19 Confirmed 12/02/2021 12/02/2021 022 12:16 AM KRAFT MILL OPERATOR COVID - 19 12/16/2021 12/16/2021 01/05/2022 12:1 8 AM CDT COVID - 19 03/03/2022 09/01/2022 09/08/2022 8:21 AM KRAFT MILL OPERATOR COVID - 19 10/20/2022 01/05/2023 01/15/2023 12:1 6 AM CDT documented as of this encounter Care Teams Box Folding Machine Operator Relationship Specialty Start Date End Date Vanessa Hmyan MD PCP - General Family Medicine 09/01/15 10/23/22 Ted Reyes MD #[address] [address] PCP - General Family Medicine 10/24/22 12/08/23 Nani Cloud MD [address] [place] [address] PCP - General Family Medicine 02/09/24 01/10/25 Provider, None [place] PCP - General 03/25/25 04/10/25 John Delgado MD [address] [place] [address] [address] [place] [address] PCP - General Family Medicine 04/11/25 Tapan Guo MD #[address] [address] Consulting Physician Colon and Rectal Surgery 09/21/22 documented as of this encounter
--- OUTSIDE RECORDS SUMMARY | 2025-05-15 09:25 | XMS_ITS | Encounter Summary ---
Author Organization [facility] Address [address] [place] [address] Phone Care Team Providers Care Countersinker Name Role Phone Vanessa Hyman MD Primary Care Provider + [phone] Tapan Guo MD Unavailable Ted Reyes MD Primary Care Provider [phone] Nani Cloud MD Primary Care Provider + [phone] Provider, None Primary Care Provider John Villatoro MD Primary Care Provider [phone] Encounter Details Date Type Department Care Team (Late st Contact Info) Description 09/16/2021 [facility] 1 [place] [id number] John Delgado MD [address] [place] [address] [address] [place] [address] Social History Tobacco Use Types Packs/Day Years [...] 08/05/2025 2:45 PM CDT [facility] [address] [place] [address] John Delgado MD [address] [place] [address] [place] [address] Discharge Disposition: Discharged to home or Selfcare documented as of this encounter Procedures Procedure Name Priority Date/Time Associated Diagnosis Comments SARS-COV-2 BY MOLECULAR Routine 09/16/2021 8:22 AM SOLAR/RENEWABLE ENERGY SALES documented in this encounter Results * SARS-COV-2 BY MOLECULAR (09/16/2021 8:22 AM SOLAR/RENEWABLE ENERGY SALES) SARSCOV2 NOT DETECTED (Referen ce Range for this test is Not Detected ) [facility] THERMOFISHER FAST DX 09/17/2021 10:21 AM SOLAR/RENEWABLE ENERGY SALES [facility] Comment:This test was perfor med by a RT-PCR method. Other Non-Phlebotomy Collection / Unknown 09/16/2021 8:22 AM SOLAR/RENEWABLE ENERGY SALES 09/16/2021 10:49 AM SOLAR/RENEWABLE ENERGY SALES Narrative [facility] - 09/17/2021 10:21 AM SOLAR/RENEWABLE ENERGY SALES Authorized Fact Sheets about this test for providers and patients are available at: https://www.fda.gov/medical-devices/shamifxkt-htlklynwgz-eqxnmkt-devices/emergen cy-us e-authorizations John Delgado MD MICROBIOLOGY - GENERAL ORDERAB LES Final Result [facility] [address] [place] [address], documented in this encounter Visit Diagnoses Not on filedocumented in this encounter Additional Health Concerns Infection Onset Date Last Indicated Resolved Time COVID - 19 07/15/2021 12/02/2021 12/02/2021 11:4 9 PM SOLAR/RENEWABLE ENERGY SALES COVID - 19 Confirmed 12/02/2021 12/02/2021 022 12:16 AM SOLAR/RENEWABLE ENERGY SALES COVID - 19 12/16/2021 12/16/2021 01/05/2022 12:1 8 AM CDT COVID - 19 03/03/2022 09/01/2022 09/08/2022 8:21 AM SOLAR/RENEWABLE ENERGY SALES COVID - 19 10/20/2022 01/05/2023 01/15/2023 12:1 6 AM CDT documented as of this encounter Care Teams Countersinker Relationship Specialty Start Date End Date Vanessa Hyman MD PCP - General Family Medicine 09/01/15 10/23/22 Ted Reyes MD [address] [address] PCP - General Family Medicine 10/24/22 12/08/23 Nani Cloud MD [address] [place] [address] PCP - General Family Medicine 02/09/24 01/10/25 Provider, None [place] PCP - General 03/25/25 04/10/25 John Delgado MD [address] [place] [address] [address] [place] [address] PCP - General Family Medicine 04/11/25 Tapan Guo MD [address] [address] Consulting Physician Colon and Rectal Surgery 09/21/22 documented as of this encounter
--- OUTSIDE RECORDS SUMMARY | 2025-05-15 09:25 | XMS_ITS | Encounter Summary ---
Author Organization [facility] Address [address] [place] [address] Phone Care Team Providers Care Nut Orchardist Name Role Phone Vanessa Hyman MD Primary Care Provider + [phone] Tapan Guo MD Unavailable Ted Reyes MD Primary Care Provider [phone] Nani Cloud MD Primary Care Provider + [phone] Provider, None Primary Care Provider John Villatoro MD Primary Care Provider [phone] Encounter Details Date Type Department Care Team (Late st Contact Info) Description 07/29/2021 [facility] 1 [place] [phone] John Delgado MD [address] [place] [address] [address] [place] [address] Encounter for screening for COVID-19 Social History [...] 08/05/2025 2:45 PM CDT [facility]ment [facility] [address] [place] [address] John Delgado MD [address] [place] [address] [address] [place] [address] Discharge Disposition: Discharged to home or Selfcare documented as of this encounter Procedures Procedure Name Priority Date/Time Associated Diagnosis Comments SARS-COV-2 BY MOLECULAR Routine 07/29/2021 7:30 AM CDT Encounter for screening for COVID-19 documented in this encounter Results * SARS-COV-2 BY MOLECULAR (07/29/2021 7:30 AM CDT) SARSCOV2 NOT DETECTED (Referen ce Range for this test is Not Detected ) [facility] THERMOFISHER FAST DX 07/30/2021 11:08 AM CDT [facility] Comment:This test was perfor med by a RT-PCR method. Other No Phlebotomy Charged / Unknown 07/29/2021 7:30 AM CDT 07/29/2021 10:30 AM CDT Narrative [facility] - 07/30/2021 11:08 AM CDT Authorized Fact Sheets about this test for providers and patients are available at: https://www.fda.gov/medical-devices/jlgrnpxrs-yiiakjxzxq-fqntfpk-devices/emergen -us e-authorizations us John Delgado MD MICROBIOLOGY - GENERAL ORDERAB LES Final Result [facility] [address] [place] [address], documented in this encounter Visit Diagnoses Diagnosis Encounter for screening for COVID-19 documented in this encounter Additional Health Concerns Infection Onset Date Last Indicated Resolved Time COVID - 19 07/15/2021 12/02/2021 12/02/2021 11:4 9 PM ALPINE GUIDE COVID - 19 Confirmed 12/02/2021 12/02/2021 022 12:16 AM ALPINE GUIDE COVID - 19 12/16/2021 12/16/2021 01/05/2022 12:1 8 AM CDT COVID - 19 03/03/2022 09/01/2022 09/08/2022 8:21 AM ALPINE GUIDE COVID - 19 10/20/2022 01/05/2023 01/15/2023 12:1 6 AM CDT documented as of this encounter Care Teams Nut Orchardist Relationship Specialty Start Date End Date Vanessa Hyman MD PCP - General Family Medicine 09/01/15 10/23/22 Ted Reyes MD [address] [address] PCP - General Family Medicine 10/24/22 12/08/23 Nani Cloud MD [address] [facility] [place] [address] PCP - General Family Medicine 02/09/24 01/10/25 Provider, None [place] PCP - General 03/25/25 04/10/25 John Delgado MD [address] [place] [address] [address] [place] [address] PCP - General Family Medicine 04/11/25 Tapan Guo MD [address] [address] Consulting Physician Colon and Rectal Surgery 09/21/22 documented as of this encounter
--- OUTSIDE RECORDS SUMMARY | 2025-05-15 09:25 | XMS_ITS ---
Author Organization [facility] Care Team Providers Care Neuropsychologist Name Role Phone Hernandez Kline Unavailable Unavailable Allergies and adverse reactions Code CodeSystem Substance Reaction Severity StartDate Concern Status Nexium Unknown 08/05/2016 active 5640 RXNORM Ibuprofen Unknown 08/05/2016 active Care Team Name Role Address Phone Organization Dates Hernandez Eliud PCP [address] [facility], [place], [address], [place] (Office): : [facility] 08/23/2016 - 09/03/2016 Goals Section Goals Description Status Target Date LORETA FAY will maintai n adequate nutritional status as evidenced by maintaining weight within 5% of #140, no s/sx of malnutrition, and consuming at least 75% of at least 3 meals daily through review date. Active 10/06/2016 Gemma will be free from complications related to infection through the review date. Active 10/06/2016 Loreta will maintain curre nt level of function in (Specify Bed Mobility, Transfers, Eating, Dressing, Toilet Use and Personal Hygiene; ADL Score) through the review date. Active 6 Loreta will be free from d iscomfort or adverse reactions related to antidepressant therapy daily through the review date. Active 10/06/2016 Loreta will have no compli cations related to diabetes through the review date. Active 10/06/2016 Loreta will remain free fr om discomfort, complications or s/sx related to gastro-intestinal alterations through review date. Active 10/06/2016 Loreta will show decreased episodes of s/sx of depression through the review date. Active 10/06/2016 Loreta will verbalize adeq uate relief of pain or ability to cope with pain as specified by pain level goal - see pain assessment - daily through review date. Active 10/06/2016 Fall related injuries will be minimized through review date. Active 10/06/2016 Kavita will have no s/sx of in fections at ileostomy site and PICC line site, and she will have intact skin, free of redness, blisters, discoloration through review date. Active 6 Immunizations Immunization Status Vaccine Details Vaccine Code CodeSystem Date Notes Influenza completed Influenza, high-dose, split virus, quadrivalent, injectable, preservative free 197 CVX created date: 08/07/2016 consent date: 08/07/2016 administere d date: 08/06/2016 TB 1 Step Mantoux (PPD) completed tuberculin skin test; unspecified formulation lotNumber: [id number] expiry: 11/23/2017 Mfg: Par [employer] Given 0.1 unit Left Forearm intradermally 98 CVX created date: 08/24/2016 consent date: 08/23/2016 administere d date: 08/23/2016 TB 1 Step Mantoux (PPD) completed tuberculin skin test; unspecified formulation lotNumber: [id number] expiry: 10/23/2017 Mfg: apisol Given 0.1 ml Left Forearm intradermally 98 CVX created date: 07/07/2016 consent date: 07/07/2016 administere d date: 07/06/2016 TB 2 Step Mantoux Skin Test completed tuberculin skin test; unspecified formulation lotNumber: [id number] expiry: 10/24/2017 Mfg: Par [employer]. Given 0.1 unit Left Forearm intradermally Step 2 of Multi-step with next step required 98 CVX created date: 08/30/2016 consent date: 08/30/2016 administere d date: 08/30/2016 TB 2 Step Mantoux Skin Test completed tuberculin skin test; unspecified formulation lotNumber: [id number] expiry: 11/23/2017 Given 0.1 ml Left Forearm intradermally Step 1 of Multi-step with next step required 98 CVX created date: 08/25/2016 consent date: 08/25/2016 administere d date: 08/23/2016 TB 2 Step Mantoux Skin Test completed tuberculin skin test; unspecified formulation lotNumber: [id number] expiry: 11/23/2017 Mfg: apisol Given 0.1 unit Right Forearm subcutaneously Step 2 of Multi-step with next step required 98 CVX created date: 08/13/2016 consent date: 08/12/2016 administere d date: 08/13/2016 TB 2 Step Mantoux Skin Test completed tuberculin skin test; unspecified formulation lotNumber: [id number] expiry: 10/23/2017 Given 0.1 ml Right Forearm intradermally Step 1 of Multi-step with next step required 98 CVX created date: 08/05/2016 consent date: 08/05/2016 administere d date: 08/05/2016 Mental Status Section Date Assessment Total Score Description 09/03/2016 BIMS 15 cognitively int act CAM 0 No delirium ind icated PHQ-9 01 minimal depress ion 08/30/2016 BIMS 15 cognitively int act CAM 0 No delirium ind icated PHQ-9 04 minimal depress ion Problems Problem # Description Date of onset Resolved Date Code CodeSystem Concern Status 1 TYPE 2 DIABETES MELLITUS WITHOUT COMPLICATIONS 08/06/[address] active 2 INFECTION AND INFLAMMATORY REACTION DUE TO OTHER CARDIAC AND VASCULAR DEVICES, IMPLANTS AND GRAFTS, INITIAL ENCOUNTER 08/05/[address] active 3 METHICILLIN SUSCEPTIBLE STAPHYLOCOCCUS AUREUS INFECTION THE CAUSE OF DISEASES CLASSIFIED ELSEWHERE 08/05/2016 08/23/[address] completed 4 OTHER LACK OF COORDINATION 08/05/[address] active 5 SEVERE SEPSIS WITHOUT SEPTIC SHOCK 08/05/2016 08/23/[address] completed 6 ENCOUNTER FOR OTHER ORTHOPEDIC AFTERCARE 07/24/[address] active 7 ACQUIRED ABSENCE OF OTHER ORGANS 07/06/[address] active 8 ACUTE KIDNEY FAILURE, UNSPECIFIED 07/06/[address] active 9 AGE-RELATED OSTEOPOROSIS WITHOUT CURRENT PATHOLOGICAL FRACTURE 07/06/[address] active 10 ANEMIA IN OTHER CHRONIC DISEASES CLASSIFIED ELSEWHERE 07/06/[address] active 11 ANOREXIA NERVOSA, UNSPECIFIED 07/06/[address] active 12 ENCOUNTER FOR ISSUE OF REPEAT PRESCRIPTION 07/06/[address] active 13 GASTRO-ESOPHAGEAL REFLUX DISEASE WITHOUT ESOPHAGITIS 07/06/[address] active 14 HYPO-OSMOLALITY AND HYPONATREMIA 07/06/[address] active 15 HYPOTHYROIDISM, UNSPECIFIED 07/06/[address] active 16 MAJOR DEPRESSIVE DISORDER, SINGLE EPISODE, UNSPECIFIED 07/06/[address] active 17 MUSCLE WASTING AND ATROPHY, NOT ELSEWHERE CLASSIFIED, UNSPECIFIED SITE 07/06/[address] active 18 OBSTRUCTIVE SLEEP APNEA (ADULT) (PEDIATRIC) 07/06/[address] active 19 OTHER ABNORMALITIES OF GAIT AND MOBILITY 07/06/[address] active 20 OTHER POSTPROCEDURAL COMPLICATIONS AND DISORDERS OF DIGESTIVE SYSTEM 07/06/[address] active 21 OTHER SPECIFIED POSTPROCEDURAL STATES 07/06/2016 07/23/[address] completed 22 PERSONAL HISTORY OF OTHER DISEASES OF THE DIGESTIVE SYSTEM 07/06/[address] active Reason for Referral No Reasons for Referral Entered Social History Social History Observation Description Start Date End Date Code Code System Current Smoking Status Tobacco smoking consumption unknown 099400150 SNOMED CT Sex Assigned At Female 1960 73892-4 [facility] Gender Identity Vital Signs Code Code System Vitals Name Values and Units Timing Information 8462-4 [facility] Blood Pressure-Diastolic Value=70 Un its=mmHg 09/03/2016 8480-6 [facility] Blood Pressure-Systolic Reuri=950 Un its=mmHg 09/03/2016 8310-5 [facility] Body Temperature Value=98.6 Units= F 09/03/2016 8867-4 [facility] Heart rate Value=93.0 Units=/min 08/2016 9279-1 [facility] Respiratory Rate Value=21.0 Units=/m in 09/03/2016 40810-9 [facility] O2 % BldC Oximetry Value=96.0 Units= % 09/03/2016 57232-8 [facility] Weight Pkykr=434.6 Units=Lbs 03/2016 81464-6 [facility] Pain Level Value=0.0 08/28/2016 2339-0 [facility] Blood Sugar Uvwfj=569.0 Units=mg/dL 08/07/2016 8302-2 [facility] Height Value=62.0 Units=Inches 07/15/2016
--- OUTSIDE RECORDS SUMMARY | 2025-05-15 09:25 | XMS_ITS | Encounter Summary ---
Author Organization [facility] Address [address] [place] [address] Phone Care Team Providers Care Down Filler Name Role Phone Vanessa Hyman MD Primary Care Provider + [phone] Tapan Guo MD Unavailable Ted Reyes MD Primary Care Provider [phone] Nani Cloud MD Primary Care Provider + [phone] Provider, None Primary Care Provider John Villatoro MD Primary Care Provider [phone] Encounter Details Date Type Department Care Team (Late st Contact Info) Description 12/02/[address] [facility] 1 [place] [id number] John Delgado MD [address] [place] [address] [address] [place] [address] Encounter for screening for COVID-19 Social History [...] [facility] [address] [place] [address] John Delgado MD [address] [place] [address] [address] [place] [address] Discharge Disposition: Discharged to home or Selfcare documented as of this encounter Procedures Procedure Name Priority Date/Time Associated Diagnosis Comments SARS-COV-2 BY MOLECULAR Routine 12/02/2021 7:56 AM ICE GRINDER Encounter for screening for COVID-19 documented in this encounter Results * (ABNORMAL) SARS-COV-2 BY MOLECULAR (12/02/2021 7:56 AM ICE GRINDER) SARSCOV2 DETECTED( A) (Referenc e Range for this test is Not Detected) [facility] THERMOFISHER FAST DX 12/02/2021 11:49 PM ICE GRINDER [facility] Comment:This test was perfor med by a RT-PCR method. Other Non-Phlebotomy Collection / Unknown 12/02/2021 7:56 AM ICE GRINDER 12/02/2021 12:23 PM ICE GRINDER Narrative [facility] - 12/02/2021 11:49 PM ICE GRINDER Authorized Fact Sheets about this test for providers and patients are available at: https://www.fda.gov/medical-devices/opwclylaq-fgvfmcrbfi-abjoiui-devices/emergen -us e-authorizations us John Delgado MD MICROBIOLOGY - GENERAL ORDERAB LES Final Result [facility] [address] [place] [address], documented in this encounter Visit Diagnoses Diagnosis Encounter for screening for COVID-19 documented in this encounter Additional Health Concerns Infection Onset Date Last Indicated Resolved Time COVID - 19 07/15/2021 12/02/2021 12/02/2021 11:4 9 PM ICE GRINDER COVID - 19 Confirmed 12/02/2021 12/02/2021 022 12:16 AM ICE GRINDER COVID - 19 12/16/2021 12/16/2021 01/05/2022 12:1 8 AM CDT COVID - 19 03/03/2022 09/01/2022 09/08/2022 8:21 AM ICE GRINDER COVID - 19 10/20/2022 01/05/2023 01/15/2023 12:1 6 AM CDT documented as of this encounter Care Teams Down Filler Relationship Specialty Start Date End Date Vanessa Hyman MD PCP - General Family Medicine 09/01/15 10/23/22 Ted Reyes MD #[address] [address] PCP - General Family Medicine 10/24/22 12/08/23 Nani Cloud MD [address] [facility] [place] [address] PCP - General Family Medicine 02/09/24 01/10/25 Provider, None CT PCP - General 03/25/25 04/10/25 John Delgado MD [address] [place] [address] [address] [place] [address] PCP - General Family Medicine 04/11/25 Tapan Guo MD #[address] [address] Consulting Physician Colon and Rectal Surgery 09/21/22 documented as of this encounter
--- OUTSIDE RECORDS SUMMARY | 2025-05-15 09:25 | XMS_ITS | Encounter Summary ---
Author Organization [facility] Address [address] [place] [address] Phone Care Team Providers Care Belt Tender Name Role Phone Tapan Guo MD Unavailable John Delgado MD Primary Care Provider [phone] Reason for Referral * Radiology Services (Routine) - Authorized Specialty Diagnoses / Procedures Referred By Contac t Referred To Contact Radiology Diagnoses Visit for screening mammogram Procedures MARGARITA SCREENING BILATERAL DIGITAL W CAD W LEXY John Delgado MD [address] [place] [address] [place] [address] Phone: tel: fax: Referral ID Status Reason Start Date Expiration Date V isits Requested Visits Authorized [id number] Authorized 04/11/2025 1 1 Encounter Details Date Type Department Care Team (Late st Contact Info) Description 04/11/2025 Transcribe Orders [facility] Call Center [address] [place] [address] John Delgado MD [address] [place] [address] Visit for screening mammogram (Primary Dx) Social History Tobacco Use Types Packs/Day Years [...] Info) Description 08/05/2025 2:45 PM CDT Appointment [facility] Mammography 1 [place] [address] John Delgado MD [address] [place] [address] Discharge Disposition: Discharged to home or Selfcare Scheduled Orders Name Type Priority Associated Diagnoses Orde r Schedule MARGARITA SCREENING BILATERAL DIGITAL W CAD W LEXY Imaging Routine Visit for screening mammogram Expected: 04/11/2025, Expires: 04/11/2026 documented as of this encounter Visit Diagnoses Diagnosis Visit for screening mammogram- Primary Other screening mammogram documented in this encounter Care Teams Belt Tender Relationship Specialty Start Date End Date John Delgado MD [address] [place] [address] PCP - General Family Medicine 04/11/25 Tapan Guo MD [address] [facility] [address] [place] [address] Consulting Physician Colon and Rectal Surgery 09/21/22 documented as of this encounter
--- OUTSIDE RECORDS SUMMARY | 2025-05-15 09:25 | XMS_ITS | Encounter Summary ---
Author Organization [facility] Address [address] [place] [address] Phone Care Team Providers Care Production Machinist Name Role Phone Vanessa Hyman MD Primary Care Provider + [phone] Tapan Guo MD Unavailable Ted Reyes MD Primary Care Provider [phone] Nani Cloud MD Primary Care Provider + [phone] Provider, None Primary Care Provider John Villatoro MD Primary Care Provider [phone] Encounter Details Date Type Department Care Team (Late st Contact Info) Description 10/07/2021 [facility] 1 [place] [address] John Delgado MD [address] [place] [address] [address] [place] [address] Encounter for screening for COVID-19 Social History [...] [facility] [address] [place] [address] John Delgado MD [address] [place] [address] [address] [place] [address] Discharge Disposition: Discharged to home or Selfcare documented as of this encounter Procedures Procedure Name Priority Date/Time Associated Diagnosis Comments SARS-COV-2 BY MOLECULAR Routine 10/07/2021 8:51 AM DELI CUTTER SLICER Encounter for screening for COVID-19 documented in this encounter Results * SARS-COV-2 BY MOLECULAR (10/07/2021 8:51 AM DELI CUTTER SLICER) SARSCOV2 NOT DETECTED (Referen ce Range for this test is Not Detected ) [facility] THERMOFISHER FAST DX 10/09/2021 8:04 AM DELI CUTTER SLICER [facility] Comment:This test was perfor med by a RT-PCR method. Other No Phlebotomy Charged / Unknown 10/07/2021 8:51 AM DELI CUTTER SLICER 10/07/2021 11:20 AM DELI CUTTER SLICER Narrative [facility] - 10/09/2021 8:04 AM DELI CUTTER SLICER Authorized Fact Sheets about this test for providers and patients are available at: https://www.fda.gov/medical-devices/empprpjcc-dldlhgzspb-ygoldmw-devices/emergen -us e-authorizations us John Delgado MD MICROBIOLOGY - GENERAL ORDERAB LES Final Result [facility] [address] [place] [address], documented in this encounter Visit Diagnoses Diagnosis Encounter for screening for COVID-19 documented in this encounter Additional Health Concerns Infection Onset Date Last Indicated Resolved Time COVID - 19 07/15/2021 12/02/2021 12/02/2021 11:4 9 PM DELI CUTTER SLICER COVID - 19 Confirmed 12/02/2021 12/02/2021 022 12:16 AM DELI CUTTER SLICER COVID - 19 12/16/2021 12/16/2021 01/05/2022 12:1 8 AM CDT COVID - 19 03/03/2022 09/01/2022 09/08/2022 8:21 AM DELI CUTTER SLICER COVID - 19 10/20/2022 01/05/2023 01/15/2023 12:1 6 AM CDT documented as of this encounter Care Teams Production Machinist Relationship Specialty Start Date End Date Vanessa Hyman MD PCP - General Family Medicine 09/01/15 10/23/22 Ted Reyes MD #[address] [address] PCP - General Family Medicine 10/24/22 12/08/23 Nani Cloud MD [address] [place] [address] PCP - General Family Medicine 02/09/24 01/10/25 Provider, None [place] PCP - General 03/25/25 04/10/25 John Delgado MD [address] [facility] [address] [place] [address] PCP - General Family Medicine 04/11/25 Tapan Guo MD #[address] [address] Consulting Physician Colon and Rectal Surgery 09/21/22 documented as of this encounter
--- OUTSIDE RECORDS SUMMARY | 2025-05-15 09:25 | XMS_ITS | Encounter Summary ---
Author Organization [facility] Address [address] [place] [address] Phone Care Team Providers Care Guest Services Agent Name Role Phone Vanessa Hyman MD Primary Care Provider + [phone] Tapan Guo MD Unavailable Ted Reyes MD Primary Care Provider [phone] Nani Cloud MD Primary Care Provider + [phone] Provider, None Primary Care Provider John Villatoro MD Primary Care Provider [phone] Encounter Details Date Type Department Care Team (Late st Contact Info) Description 11/11[facility] 1 [place] [phone] John Delgado MD [address] [place] [address] [address] [place] [address] Encounter for screening for COVID-19 Social History [...] [facility] [address] [place] [address] John Delgado MD [address] [place] [address] [address] [place] [address] Discharge Disposition: Discharged to home or Selfcare documented as of this encounter Procedures Procedure Name Priority Date/Time Associated Diagnosis Comments SARS-COV-2 BY MOLECULAR Routine 11/11/2021 7:01 AM OPTICAL WORKER Encounter for screening for COVID-19 documented in this encounter Results * SARS-COV-2 BY MOLECULAR (11/11/2021 7:01 AM OPTICAL WORKER) SARSCOV2 NOT DETECTED (Referen ce Range for this test is Not Detected ) [facility] THERMOFISHER FAST DX 11/13/2021 9:45 AM OPTICAL WORKER [facility] Comment:This test was perfor med by a RT-PCR method. Other Non-Phlebotomy Collection / Unknown 11/11/2021 7:01 AM OPTICAL WORKER 11/11/2021 1:43 [address] [facility] - 11/13/2021 9:45 AM OPTICAL WORKER Authorized Fact Sheets about this test for providers and patients are available at: https://www.fda.gov/medical-devices/xndqjhmhn-kqfwpfyrhc-dyykfpx-devices/emergen -us e-authorizations us John Delgado MD MICROBIOLOGY - GENERAL ORDERAB LES Final Result [facility] [address] [place] [address], documented in this encounter Visit Diagnoses Diagnosis Encounter for screening for COVID-19 documented in this encounter Additional Health Concerns Infection Onset Date Last Indicated Resolved Time COVID - 19 07/15/2021 12/02/2021 12/02/2021 11:4 9 PM OPTICAL WORKER COVID - 19 Confirmed 12/02/2021 12/02/2021 022 12:16 AM OPTICAL WORKER COVID - 19 12/16/2021 12/16/2021 01/05/2022 12:1 8 AM CDT COVID - 19 03/03/2022 09/01/2022 09/08/2022 8:21 AM OPTICAL WORKER COVID - 19 10/20/2022 01/05/2023 01/15/2023 12:1 6 AM CDT documented as of this encounter Care Teams Guest Services Agent Relationship Specialty Start Date End Date Vanessa Hyman MD PCP - General Family Medicine 09/01/15 10/23/22 Ted Reyes MD #[address] [address] PCP - General Family Medicine 10/24/22 12/08/23 Nani Cloud MD [address] [place] [address] PCP - General Family Medicine 02/09/24 01/10/25 Provider, None [place] PCP - General 03/25/25 04/10/25 John Delgado MD [address] [place] [address] [address] [place] [address] PCP - General Family Medicine 04/11/25 Tapan Guo MD #[address] [address] Consulting Physician Colon and Rectal Surgery 09/21/22 documented as of this encounter
--- OUTSIDE RECORDS SUMMARY | 2025-05-15 09:25 | XMS_ITS | Encounter Summary ---
Author Organization [facility] Address [address] [place] [address] Phone Care Team Providers Care Brick Chimney Supervisor Name Role Phone Vanessa Hyman MD Primary Care Provider + [phone] Tapan Guo MD Unavailable Ted Reyes MD Primary Care Provider [phone] Nani Cloud MD Primary Care Provider + [phone] Provider, None Primary Care Provider John Villatoro MD Primary Care Provider [phone] Encounter Details Date Type Department Care Team (Late st Contact Info) Description 07/22/2021 [facility] 1 [place] [phone] John Delgado MD [address] [place] [address] [address] [place] [address] Encounter for screening for COVID-19 Social History [...] Info) Description 08/05/2025 2:45 PM CDT [facility] [address] [place] [address] John Delgado MD [address] [place] [address] [address] [place] [address] Discharge Disposition: Discharged to home or Selfcare documented as of this encounter Procedures Procedure Name Priority Date/Time Associated Diagnosis Comments SARS-COV-2 BY MOLECULAR Routine 07/22/2021 8:42 AM CDT Encounter for screening for COVID-19 documented in this encounter Results * SARS-COV-2 BY MOLECULAR (07/22/2021 8:42 AM CDT) SARSCOV2 NOT DETECTED (Referen ce Range for this test is Not Detected ) [facility] THERMOFISHER FAST DX 07/23/2021 6:36 AM CDT [facility] Comment:This test was perfor med by a RT-PCR method. Other No Phlebotomy Charged / Unknown 07/22/2021 8:42 AM CDT 07/22/2021 10:31 AM CDT Narrative [facility] - 07/23/2021 6:36 AM CDT Authorized Fact Sheets about this test for providers and patients are available at: https://www.fda.gov/medical-devices/djyiswvib-igwppqwpco-tvdiueh-devices/emergen -us e-authorizations us John Delgado MD MICROBIOLOGY - GENERAL ORDERAB LES Final Result [facility] [address] [place] [address], documented in this encounter Visit Diagnoses Diagnosis Encounter for screening for COVID-19 documented in this encounter Additional Health Concerns Infection Onset Date Last Indicated Resolved Time COVID - 19 07/15/2021 12/02/2021 12/02/2021 11:4 9 PM BOOKKEEPING MANAGER COVID - 19 Confirmed 12/02/2021 12/02/2021 022 12:16 AM BOOKKEEPING MANAGER COVID - 19 12/16/2021 12/16/2021 01/05/2022 12:1 8 AM CDT COVID - 19 03/03/2022 09/01/2022 09/08/2022 8:21 AM BOOKKEEPING MANAGER COVID - 19 10/20/2022 01/05/2023 01/15/2023 12:1 6 AM CDT documented as of this encounter Care Teams Brick Chimney Supervisor Relationship Specialty Start Date End Date Vanessa Hyman MD PCP - General Family Medicine 09/01/15 10/23/22 Ted Reyes MD #[address] [address] PCP - General Family Medicine 10/24/22 12/08/23 Nani Cloud MD [address] [facility] [place] [address] PCP - General Family Medicine 02/09/24 01/10/25 Provider, None [place] PCP - General 03/25/25 04/10/25 John Delgado MD [address] [place] [address] [address] [place] [address] PCP - General Family Medicine 04/11/25 Tapan Guo MD #[address] [address] Consulting Physician Colon and Rectal Surgery 09/21/22 documented as of this encounter
--- OUTSIDE RECORDS SUMMARY | 2025-05-15 09:25 | XMS_ITS | Encounter Summary ---
Author Organization [facility] Address [address] [place] [address] Phone Care Team Providers Care Insurance Attorney Name Role Phone Vanessa Hyman MD Primary Care Provider + [phone] Tapan Guo MD Unavailable Ted Reyes MD Primary Care Provider [phone] Nani Cloud MD Primary Care Provider + [phone] Provider, None Primary Care Provider John Villatoro MD Primary Care Provider [phone] Encounter Details Date Type Department Care Team (Late st Contact Info) Description 08/05/2021 [facility] 1 [place] [phone] John Delgado MD [address] [place] [address] [address] [place] [address] Social History Tobacco Use Types Packs/Day Years [...] [facility] [address] [place] [address] John Delgado MD [address] [place] [address] [place] [address] Discharge Disposition: Discharged to home or Selfcare documented as of this encounter Procedures Procedure Name Priority Date/Time Associated Diagnosis Comments SARS-COV-2 BY MOLECULAR Routine 08/05/2021 9:00 AM CDT documented in this encounter Results * SARS-COV-2 BY MOLECULAR (08/05/2021 9:00 AM CDT) SARSCOV2 NOT DETECTED (Referen ce Range for this test is Not Detected ) [facility] THERMOFISHER FAST DX 08/06/2021 10:46 AM CDT [facility] Comment:This test was perfor med by a RT-PCR method. Other Non-Phlebotomy Collection / Unknown 08/05/2021 9:00 AM CDT 08/05/2021 10:33 AM CDT Narrative [facility] - 08/06/2021 10:46 AM CDT Authorized Fact Sheets about this test for providers and patients are available at: https://www.fda.gov/medical-devices/gdxlumlzy-qnjeeuslpw-fthryth-devices/emergen -us e-authorizations us John Delgado MD MICROBIOLOGY - GENERAL ORDERAB LES Final Result [facility] [address] [place] [address], documented in this encounter Visit Diagnoses Not on filedocumented in this encounter Additional Health Concerns Infection Onset Date Last Indicated Resolved Time COVID - 19 07/15/2021 12/02/2021 12/02/2021 11:4 9 PM DUCT MAKER COVID - 19 Confirmed 12/02/2021 12/02/2021 022 12:16 AM DUCT MAKER COVID - 19 12/16/2021 12/16/202101/05/2022 12:1 8 AM CDT COVID - 19 03/03/2022 09/01/2022 09/08/2022 8:21 AM DUCT MAKER COVID - 19 10/20/2022 01/05/2023 01/15/2023 12:1 6 AM CDT documented as of this encounter Care Teams Insurance Attorney Relationship Specialty Start Date End Date Vanessa Hyman MD PCP - General Family Medicine 09/01/15 10/23/22 Ted Reyes MD #[address] [address] PCP - General Family Medicine 10/24/22 12/08/23 Nani Cloud MD [address] [place] [address] PCP - General Family Medicine 02/09/24 01/10/25 Provider, None [place] PCP - General 03/25/25 04/10/25 John Delgado MD [address] [place] [address] [address] [place] [address] PCP - General Family Medicine 04/11/25 Tapan Guo MD #[address] [address] Consulting Physician Colon and Rectal Surgery 09/21/22 documented as of this encounter
--- OUTSIDE RECORDS SUMMARY | 2025-05-15 09:25 | XMS_ITS | Encounter Summary ---
Author Organization [facility] Address [address] [place] [address] Phone Care Team Providers Care Theatrical Agent Name Role Phone Vanessa Hyman MD Primary Care Provider + [phone] Tapan Guo MD Unavailable Ted Reyes MD Primary Care Provider [phone] Nani Cloud MD Primary Care Provider + [phone] Provider, None Primary Care Provider John Villatoro MD Primary Care Provider [phone] Encounter Details Date Type Department Care Team (Late st Contact Info) Description 08/26/2021 [facility] 1 [place] [phone] John Delgado MD [address] [place] [address] [address] [place] [address] Encounter for screening for COVID-19 Social History [...] Info) Description 08/05/2025 2:45 PM CDT [facility] [address] [place] [address] John Delgado MD [address] [place] [address] [address] [place] [address] Discharge Disposition: Discharged to home or Selfcare documented as of this encounter Procedures Procedure Name Priority Date/Time Associated Diagnosis Comments SARS-COV-2 BY MOLECULAR Routine 08/26/2021 8:26 AM CDT Encounter for screening for COVID-19 documented in this encounter Results * SARS-COV-2 BY MOLECULAR (08/26/2021 8:26 AM CDT) SARSCOV2 NOT DETECTED (Referen ce Range for this test is Not Detected ) [facility] THERMOFISHER FAST DX 08/27/2021 12:01 AM CDT [facility] Comment:This test was perfor med by a RT-PCR method. Other No Phlebotomy Charged / Unknown 08/26/2021 8:26 AM CDT 08/26/2021 10:47 AM CDT Narrative [facility] - 08/27/2021 12:01 AM CDT Authorized Fact Sheets about this test for providers and patients are available at: https://www.fda.gov/medical-devices/onbowpdet-qidlogolfr-ycpncmp-devices/emergen -us e-authorizations us John Delgado MD MICROBIOLOGY - GENERAL ORDERAB LES Final Result [facility] [address] [place] [address], documented in this encounter Visit Diagnoses Diagnosis Encounter for screening for COVID-19 documented in this encounter Additional Health Concerns Infection Onset Date Last Indicated Resolved Time COVID - 19 07/15/2021 12/02/2021 12/02/2021 11:4 9 PM SHELL SIEVE OPERATOR COVID - 19 Confirmed 12/02/2021 12/02/2021 022 12:16 AM SHELL SIEVE OPERATOR COVID - 19 12/16/2021 12/16/2021 01/05/2022 12:1 8 AM CDT COVID - 19 03/03/2022 09/01/2022 09/08/2022 8:21 AM SHELL SIEVE OPERATOR COVID - 19 10/20/2022 01/05/2023 01/15/2023 12:1 6 AM CDT documented as of this encounter Care Teams Theatrical Agent Relationship Specialty Start Date End Date Vanessa Hyman MD PCP - General Family Medicine 09/01/15 10/23/22 Ted Reyes MD #[address] [address] PCP - General Family Medicine 10/24/22 12/08/23 Nani Cloud MD [address] [place] [address] PCP - General Family Medicine 02/09/24 01/10/25 Provider, None [place] PCP - General 03/25/25 04/10/25 John Delgado MD [address] [place] [address] [address] [place] [address] PCP - General Family Medicine 04/11/25 Tapan Guo MD #[address] [address] Consulting Physician Colon and Rectal Surgery 09/21/22 documented as of this encounter
--- OUTSIDE RECORDS SUMMARY | 2025-05-15 09:25 | XMS_ITS | Encounter Summary ---
Author Organization [facility] Address [address] [place] [address] Phone Care Team Providers Care Airplane Cabin Attendant Name Role Phone Vanessa Hyman MD Primary Care Provider + [phone] Tapan Guo MD Unavailable Ted Reyes MD Primary Care Provider [phone] Nani Cloud MD Primary Care Provider + [phone] Provider, None Primary Care Provider John Villatoro MD Primary Care Provider [phone] Encounter Details Date Type Department Care Team (Late st Contact Info) Description 07/15/2021 [facility] 1 [place] [phone] John Delgado MD [address] [place] [address] [address] [place] [address] Social History Tobacco Use Types Packs/Day Years [...] [facility] [address] [place] [address] John Delgado MD [address] [place] [address] [place] [address] Discharge Disposition: Discharged to home or Selfcare documented as of this encounter Procedures Procedure Name Priority Date/Time Associated Diagnosis Comments SARS-COV-2 BY MOLECULAR Routine 07/15/2021 7:14 AM CDT documented in this encounter Results * SARS-COV-2 BY MOLECULAR (07/15/2021 7:14 AM CDT) SARSCOV2 NOT DETECTED (Referen ce Range for this test is Not Detected ) [facility] THERMOFISHER FAST DX 07/16/2021 10:56 AM CDT [facility] Comment:This test was perfor med by a RT-PCR method. Other Non-Phlebotomy Collection / Unknown 07/15/2021 7:14 AM CDT 07/15/2021 11:11 AM CDT Narrative [facility] - 07/16/2021 10:56 AM CDT Authorized Fact Sheets about this test for providers and patients are available at: https://www.fda.gov/medical-devices/ouqqsbpjm-aniilimakm-hgadidi-devices/emergen -us e-authorizations us John Delgado MD MICROBIOLOGY - GENERAL ORDERAB LES Final Result [facility] [address] [place] [address], documented in this encounter Visit Diagnoses Not on filedocumented in this encounter Additional Health Concerns Infection Onset Date Last Indicated Resolved Time COVID - 19 07/15/2021 12/02/2021 12/02/2021 11:4 9 PM CHEMICAL PUMPER COVID - 19 Confirmed 12/02/2021 12/02/2021 022 12:16 AM CHEMICAL PUMPER COVID - 19 12/16/2021 12/16/202101/05/2022 12:1 8 AM CDT COVID - 19 03/03/2022 09/01/2022 09/08/2022 8:21 AM CHEMICAL PUMPER COVID - 19 10/20/2022 01/05/2023 01/15/2023 12:1 6 AM CDT documented as of this encounter Care Teams Airplane Cabin Attendant Relationship Specialty Start Date End Date Vanessa Hyman MD PCP - General Family Medicine 09/01/15 10/23/22 Ted Reyes MD #[address] [address] PCP - General Family Medicine 10/24/22 12/08/23 Nani Cloud MD [address] [place] [address] PCP - General Family Medicine 02/09/24 01/10/25 Provider, None [place] PCP - General 03/25/25 04/10/25 John Delgado MD [address] [place] [address] [address] [place] [address] PCP - General Family Medicine 04/11/25 Tapan Guo MD #[address] [address] Consulting Physician Colon and Rectal Surgery 09/21/22 documented as of this encounter
--- OUTSIDE RECORDS SUMMARY | 2025-05-15 09:25 | XMS_ITS | Encounter Summary ---
Author Organization [facility] Address [address] [place] [address] Phone Care Team Providers Care Maintenance Department Manager Name Role Phone Tapan Guo MD Unavailable Ted Reyes MD Primary Care Provider [phone] Nani Cloud MD Primary Care Provider [phone] Provider, None Primary Care Provider John Villatoro MD Primary Care Provider [phone] Encounter Details Date Type Department Care Team (Late st Contact Info) Description 01/05/2023 Lab Requisition [facility] Laboratory Services 1 [place] [address] John Delgado MD [address] [place] [address] [address] [place] [address] Encounter for screening for COVID-19 [...] Coronavirus/COVID-19? No / Unsure 12/06/2022 10:30 AM TELECOMMUNICATION EQUIPMENT REPAIRER documented as of this encounter Plan of Treatment Upcoming Encounters Date Type Department Care Team (Late st Contact Info) Description 08/05/2025 2:45 PM CDT [facility] [address] [place] [address] John Delgado MD [address] [facility] [address] [place] [address] Discharge Disposition: Discharged to home or Selfcare documented as of this encounter Procedures Procedure Name Priority Date/Time Associated Diagnosis Comments SARS-COV-2 BY MOLECULAR Routine 01/05/2023 8:18 AM CDT Encounter for screening for COVID-19 documented in this encounter Results * SARS-COV-2 BY MOLECULAR (01/05/2023 8:18 AM CDT) SARSCOV2 NOT DETECTED (Referen ce Range for this test is Not Detected ) [facility] THERMOFISHER FAST DX 01/05/2023 5:01 PM CDT [facility] Comment:This test was perfor med by a RT-PCR method. Other COVID 19 Home Health/ [facility]way Facility Collection / Unknown 01/05/2023 8:18 AM CDT 01/05/2023 9:19 AM CDT Narrative [facility] - 01/05/2023 5:01 PM CDT Authorized Fact Sheets about this test for providers and patients are available at: https://www.fda.gov/medical-devices/hilrxqfjp-ktkgwfmuaj-xeqfxfo-devices/emergen cy-us e-authorizations us John Delgado MD MICROBIOLOGY - GENERAL ORDERAB LES Final Result [facility] [address] [place] [address], [place] documented in this encounter Visit Diagnoses Diagnosis Encounter for screening for COVID-19 documented in this encounter Additional Health Concerns Infection Onset Date Last Indicated Resolved Time COVID - 19 10/20/2022 01/05/2023 01/15/2023 12:1 6 AM CDT documented as of this encounter Care Teams Maintenance Department Manager Relationship Specialty Start Date End Date Ted Reyes MD #[address] [address] PCP - General Family Medicine 10/24/22 12/08/23 Nani Cloud MD [address] [place] [address] PCP - General Family Medicine 02/09/24 01/10/25 Provider, None [place] PCP - General 03/25/25 04/10/25 John Delgado MD [address] [facility] [address] [place] [address] PCP - General Family Medicine 04/11/25 Tapan Guo MD #[address] [address] Consulting Physician Colon and Rectal Surgery 09/21/22 documented as of this encounter
--- OUTSIDE RECORDS SUMMARY | 2025-05-15 09:25 | XMS_ITS | Encounter Summary ---
Author Organization [facility] Address [address] [place] [address] Phone Care Team Providers Care Computing Machine Operator Name Role Phone Vanessa Hyman MD Primary Care Provider + [phone] Tapan Guo MD Unavailable Ted Reyes MD Primary Care Provider [phone] Nani Cloud MD Primary Care Provider + [phone] Provider, None Primary Care Provider John Villatoro MD Primary Care Provider [phone] Encounter Details Date Type Department Care Team (Late st Contact Info) Description 10/28/2021 [facility] 1 [place] [phone] John Delgado MD [address] [place] [address] [address] [place] [address] Social History Tobacco Use Types Packs/Day Years [...] [facility] [address] [place] [address] John Deglado MD [address] [place] [address] [place] [address] Discharge Disposition: Discharged to home or Selfcare documented as of this encounter Procedures Procedure Name Priority Date/Time Associated Diagnosis Comments SARS-COV-2 BY MOLECULAR Routine 10/28/2021 8:55 AM WEB METHODS DEVELOPER documented in this encounter Results * SARS-COV-2 BY MOLECULAR (10/28/2021 8:55 AM WEB METHODS DEVELOPER) SARSCOV2 NOT DETECTED (Referen ce Range for this test is Not Detected ) [facility] THERMOFISHER FAST DX 10/30/2021 7:20 PM WEB METHODS DEVELOPER [facility] Comment:This test was perfor med by a RT-PCR method. Other Non-Phlebotomy Collection / Unknown 10/28/2021 8:55 AM WEB METHODS DEVELOPER 10/28/2021 12:10 PM WEB METHODS DEVELOPER Narrative [facility] - 10/30/2021 7:20 PM WEB METHODS DEVELOPER Authorized Fact Sheets about this test for providers and patients are available at: https://www.fda.gov/medical-devices/agrfgonlk-nmviyoqgmf-ulipxwm-devices/emergen cy-us e-authorizations John Delgado MD MICROBIOLOGY - GENERAL ORDERAB LES Final Result [facility] [address] [place] [address], documented in this encounter Visit Diagnoses Not on filedocumented in this encounter Additional Health Concerns Infection Onset Date Last Indicated Resolved Time COVID - 19 07/15/2021 12/02/2021 12/02/2021 11:4 9 PM WEB METHODS DEVELOPER COVID - 19 Confirmed 12/02/2021 12/02/2021 022 12:16 AM WEB METHODS DEVELOPER COVID - 19 12/16/2021 12/16/2021 01/05/2022 12:1 8 AM CDT COVID - 19 03/03/2022 09/01/2022 09/08/2022 8:21 AM WEB METHODS DEVELOPER COVID - 19 10/20/2022 01/05/2023 01/15/2023 12:1 6 AM CDT documented as of this encounter Care Teams Computing Machine Operator Relationship Specialty Start Date End Date Vanessa Hyman MD PCP - General Family Medicine 09/01/15 10/23/22 Ted Reyes MD #[address] [address] PCP - General Family Medicine 10/24/22 12/08/23 Nani Cloud MD [address] [place] [address] PCP - General Family Medicine 02/09/24 01/10/25 Provider, None [place] PCP - General 03/25/25 04/10/25 John Delgado MD [address] [place] [address] [address] [place] [address] PCP - General Family Medicine 04/11/25 Tapan Guo MD #[address] [address] Consulting Physician Colon and Rectal Surgery 09/21/22 documented as of this encounter
--- OUTSIDE RECORDS SUMMARY | 2025-05-15 09:25 | XMS_ITS | Encounter Summary ---
Author Organization [facility] Address [address] [place] [address] Phone Care Team Providers Care Chucking Machine Operator Name Role Phone Vanessa Hyman MD Primary Care Provider + [phone] Tapan Guo MD Unavailable Ted Reyes MD Primary Care Provider [phone] Nani Cloud MD Primary Care Provider + [phone] Provider, None Primary Care Provider John Villatoro MD Primary Care Provider [phone] Encounter Details Date Type Department Care Team (Late st Contact Info) Description 09/30/2021 [facility] [address] [place] [id number] John Delgado MD [address] [place] [address] [address] [place] [address] Encounter for screening for COVID-19 Social History [...] Info) Description 08/05/2025 2:45 PM CDT [facility] [address] [place] [address] John Delgado MD [address] [place] [address] [address] [place] [address] Discharge Disposition: Discharged to home or Selfcare documented as of this encounter Procedures Procedure Name Priority Date/Time Associated Diagnosis Comments SARS-COV-2 BY MOLECULAR Routine 09/30/2021 8:43 AM PAROLE HEARING OFFICER Encounter for screening for COVID-19 documented in this encounter Results * SARS-COV-2 BY MOLECULAR (09/30/2021 8:43 AM PAROLE HEARING OFFICER) SARSCOV2 NOT DETECTED (Referen ce Range for this test is Not Detected ) [facility] THERMOFISHER FAST DX 10/01/2021 8:03 AM PAROLE HEARING OFFICER [facility] Comment:This test was perfor med by a RT-PCR method. Other No Phlebotomy Charged / Unknown 09/30/2021 8:43 AM PAROLE HEARING OFFICER 09/30/2021 11:26 AM PAROLE HEARING OFFICER Narrative [facility] - 10/01/2021 8:03 AM PAROLE HEARING OFFICER Authorized Fact Sheets about this test for providers and patients are available at: https://www.fda.gov/medical-devices/wjubxfdzt-eazlzlinay-ujxztbb-devices/emergen -us e-authorizations us John Delgado MD MICROBIOLOGY - GENERAL ORDERAB LES Final Result [facility] [address] [place] [address], documented in this encounter Visit Diagnoses Diagnosis Encounter for screening for COVID-19 documented in this encounter Additional Health Concerns Infection Onset Date Last Indicated Resolved Time COVID - 19 07/15/2021 12/02/2021 12/02/2021 11:4 9 PM PAROLE HEARING OFFICER COVID - 19 Confirmed 12/02/2021 12/02/2021 022 12:16 AM PAROLE HEARING OFFICER COVID - 19 12/16/2021 12/16/2021 01/05/2022 12:1 8 AM CDT COVID - 19 03/03/2022 09/01/2022 09/08/2022 8:21 AM PAROLE HEARING OFFICER COVID - 19 10/20/2022 01/05/2023 01/15/2023 12:1 6 AM CDT documented as of this encounter Care Teams Chucking Machine Operator Relationship Specialty Start Date End Date Vanessa Hyman MD PCP - General Family Medicine 09/01/15 10/23/22 Ted Reyes MD #[address] [address] PCP - General Family Medicine 10/24/22 12/08/23 Nani Cloud MD [address] [place] [address] PCP - General Family Medicine 02/09/24 01/10/25 Provider, None [place] PCP - General 03/25/25 04/10/25 John Delgado MD [address] [facility] [address] [place] [address] PCP - General Family Medicine 04/11/25 Tapan Guo MD #[address] [address] Consulting Physician Colon and Rectal Surgery 09/21/22 documented as of this encounter
--- OUTSIDE RECORDS SUMMARY | 2025-05-15 09:25 | XMS_ITS | Encounter Summary ---
Author Organization [facility] Address [address] [place] [address] Phone Care Team Providers Care Tier And Detonator Name Role Phone Vanessa Hyman MD Primary Care Provider + [phone] Tapan Guo MD Unavailable Ted Reyes MD Primary Care Provider [phone] Nani Cloud MD Primary Care Provider + [phone] Provider, None Primary Care Provider John Villatoro MD Primary Care Provider [phone] Encounter Details Date Type Department Care Team (Late st Contact Info) Description 12/16/2021 [facility] [address] [place] [phone] John Delgado MD [address] [place] [address] [address] [place] [address] Encounter for screening for COVID-19 Social History [...] 08/05/2025 2:45 PM CDT [facility]ointment [facility] [address] [place] [address] John Delgado MD [address] [place] [address] [address] [place] [address] Discharge Disposition: Discharged to home or Selfcare documented as of this encounter Procedures Procedure Name Priority Date/Time Associated Diagnosis Comments SARS-COV-2 BY MOLECULAR Routine 12/16/2021 8:22 AM CIRCULAR KNIFE MACHINE CUTTER Encounter for screening for COVID-19 documented in this encounter Results * SARS-COV-2 BY MOLECULAR (12/16/2021 8:22 AM CIRCULAR KNIFE MACHINE CUTTER) SARSCOV2 NOT DETECTED (Referen ce Range for this test is Not Detected ) [facility] THERMOFISHER FAST DX 12/16/2021 11:41 PM CIRCULAR KNIFE MACHINE CUTTER [facility] Comment:This test was perfor med by a RT-PCR method. Other Non-Phlebotomy Collection / Unknown 12/16/2021 8:22 AM CIRCULAR KNIFE MACHINE CUTTER 12/16/2021 11:48 AM CIRCULAR KNIFE MACHINE CUTTER Narrative [facility] - 12/16/2021 11:41 PM CIRCULAR KNIFE MACHINE CUTTER Authorized Fact Sheets about this test for providers and patients are available at: https://www.fda.gov/medical-devices/whlfwsrwb-ajqbklsapi-txanqnf-devices/emergen -us e-authorizations us John Delgado MD MICROBIOLOGY - GENERAL ORDERAB LES Final Result [facility] [address] [place] [address], documented in this encounter Visit Diagnoses Diagnosis Encounter for screening for COVID-19 documented in this encounter Additional Health Concerns Infection Onset Date Last Indicated Resolved Time COVID - 19 Confirmed 12/02/2021 12/02/2021 022 12:16 AM CIRCULAR KNIFE MACHINE CUTTER COVID - 19 12/16/2021 12/16/2021 01/05/2022 12:1 8 AM CDT COVID - 19 03/03/2022 09/01/2022 09/08/2022 8:21 AM CIRCULAR KNIFE MACHINE CUTTER COVID - 19 10/20/2022 01/05/2023 01/15/2023 12:1 6 AM CDT documented as of this encounter Care Teams Tier And Detonator Relationship Specialty Start Date End Date Vanessa Hyman MD PCP - General Family Medicine 09/01/15 10/23/22 Ted Reyes MD #[address] [address] PCP - General Family Medicine 10/24/22 12/08/23 Nani Cloud MD [address] [place] [address] PCP - General Family Medicine 02/09/24 01/10/25 Provider, None [place] PCP - General 03/25/25 04/10/25 John Delgado MD [address] [place] [address] [address] [place] [address] PCP - General Family Medicine 04/11/25 Tapan Guo MD #[address] [address] Consulting Physician Colon and Rectal Surgery 09/21/22 documented as of this encounter
--- OUTSIDE RECORDS SUMMARY | 2025-05-15 09:25 | XMS_ITS | Encounter Summary ---
Author Organization [facility] Address [address] [place] [address] Phone Care Team Providers Care Inseamer Name Role Phone Vanessa Hyman MD Primary Care Provider [phone] Tapan Guo MD Unavailable Ted Reyes MD Primary Care Provider [phone] Nani Cloud MD Primary Care Provider + [phone] Provider, None Primary Care Provider John Villatoro MD Primary Care Provider [phone] Encounter Details Date Type Department Care Team (Late st Contact Info) Description 10/14/20[facility] [address] [place] [phone] John Delgado MD [address] [place] [address] [address] [place] [address] Encounter for screening for COVID-19 Social History [...] Info) Description 08/05/2025 2:45 PM CDT [facility] [address] [place] [address] John Delgado MD [address] [place] [address] [address] [place] [address] Discharge Disposition: Discharged to home or Selfcare documented as of this encounter Procedures Procedure Name Priority Date/Time Associated Diagnosis Comments SARS-COV-2 BY MOLECULAR Routine 10/14/2021 8:30 AM POOL TABLE MECHANIC Encounter for screening for COVID-19 documented in this encounter Results * SARS-COV-2 BY MOLECULAR (10/14/2021 8:30 AM POOL TABLE MECHANIC) SARSCOV2 NOT DETECTED (Referen ce Range for this test is Not Detected ) [facility] THERMOFISHER FAST DX 10/17/2021 8:57 AM POOL TABLE MECHANIC [facility] Comment:This test was perfor med by a RT-PCR method. Other Non-Phlebotomy Collection / Unknown 10/14/2021 8:30 AM POOL TABLE MECHANIC 10/14/2021 11:00 AM POOL TABLE MECHANIC Narrative [facility] - 10/17/2021 8:57 AM POOL TABLE MECHANIC Authorized Fact Sheets about this test for providers and patients are available at: https://www.fda.gov/medical-devices/mbyrepvcg-ggkhkaflae-ffzhkag-devices/emergen -us e-authorizations us John Delgado MD MICROBIOLOGY - GENERAL ORDERAB LES Final Result [facility] [address] [place] [address], documented in this encounter Visit Diagnoses Diagnosis Encounter for screening for COVID-19 documented in this encounter Additional Health Concerns Infection Onset Date Last Indicated Resolved Time COVID - 19 07/15/2021 12/02/2021 12/02/2021 11:4 9 PM POOL TABLE MECHANIC COVID - 19 Confirmed 12/02/2021 12/02/2021 022 12:16 AM POOL TABLE MECHANIC COVID - 19 12/16/2021 12/16/2021 01/05/2022 12:1 8 AM CDT COVID - 19 03/03/2022 09/01/2022 09/08/2022 8:21 AM POOL TABLE MECHANIC COVID - 19 10/20/2022 01/05/2023 01/15/2023 12:1 6 AM CDT documented as of this encounter Care Teams Inseamer Relationship Specialty Start Date End Date Vanessa Hyman MD PCP - General Family Medicine 09/01/15 10/23/22 Ted Reyes MD #[address] [address] PCP - General Family Medicine 10/24/22 12/08/23 Nani Cloud MD [address] [place] [address] PCP - General Family Medicine 02/09/24 01/10/25 Provider, None [place] PCP - General 03/25/25 04/10/25 John Delgado MD [address] [place] [address] [address] [place] [address] PCP - General Family Medicine 04/11/25 Tapan Guo MD #[address] [address] Consulting Physician Colon and Rectal Surgery 09/21/22 documented as of this encounter
--- OUTSIDE RECORDS SUMMARY | 2025-05-15 09:25 | XMS_ITS | Clinical Summary ---
Author Organization [facility] Address [address] [place] [address] Phone Care Team Providers Care Night Assistant Name Role Phone Tapan Guo MD Unavailable John Delgado MD Primary Care Provider [phone] Allergies Active Allergy Reactions Criticality Noted Date Comments Ibuprofen Unknown 12/20/2018 Esomeprazole Unknown 12/20/2018 Caused pancreatitis Medications FLUoxetine (PROZAC) 40 MG Capsule Take 40 mg by mouth every morning. Active levothyroxine (SYNTHROID) 50 MCG Tablet Take 50 mcg by mouth every morning. Active loratadine (CLARITIN) 10 MG Tablet Take 10 mg by mouth every morning. Active docusate sodium (COLACE) 100 MG Capsule Take 100 mg by mouth 2 times daily. Active atorvastatin (LIPITOR) 20 MG Tablet Take 20 mg by mouth nightly. Active melatonin 3 MG Tablet Take 3 mg by mouth nightly. Active cyclobenzaprine (FLEXERIL) 5 MG Tablet Take 5 mg by mouth 3 times daily. Active Multiple Vitamins-Minera ls (MULTI-RACHEL PO) Take 1 Tab by mouth every morning. Active Cholecalciferol (VITAMIN D-3) 125 MCG (5000 UT) Tablet Take 5,000 Units by mouth every morning. Active diphenhydrAMINE (BENADRYL) 25 MG Capsule Take 25 mg by mouth every 6 hours as needed for Itching. Active acetaminophen (TYLENOL) 325 MG Tablet Take 650 mg by mouth every 6 hours as needed. Active Magnesium Hydroxide (MILK OF MAGNESIA PO) Take 30 mL by mouth every 3 days. As needed Active olopatadine (PATANOL) 0.1 % Solution Place 1 Drop in affected eye(s) 2 times daily as needed. Active Dextromethorpha n-guaiFENesin (ROBAFEN DM CLEAR PO) Take 10 mL by mouth every 4 hours as needed. Active Bacitracin-Poly myxin B (NEOSPORIN EX) by Apply externally route every 8 hours as needed. Active Carboxymethylce llulose Sodium (ARTIFICIAL TEARS OP) Place in affected eye(s) 3 times daily. Active calcium 600 MG Tablet Take 600 mg by mouth 2 times daily. Active polyethylene glycol (GLYCOLAX) 17 GM/SCOOP Powder MiraLax 17 GM Oral Packet QTY: 0 packet Days: 0 Refills: 0 Written: 01/20/22 Patient Instructions: 2 Active Sodium Phosphates (ENEMA DISPOSABLE RE) by Rectal route. Active alendronate (FOSAMAX) 70 MG Tablet 70 mg. 2 Active aspirin 81 MG Chewable Tablet 81 mg. 2 Active bisacodyl EC (DULCOLAX) 5 MG Tablet Delayed Response 5 mg. 2 Active buPROPion (WELLBUTRIN) 100 MG Tablet 100 mg. 2 Active Cholecalciferol (Dialyvite Vitamin D3 Max) 1.25 MG (19917 UT) Tablet Dialyvite Vitamin D3 Max 1.25 MG (13818 UT) Oral Tablet QTY: 0 tablet Days: 0 Refills: 0 Written: 01/20/22 Patient Instructions: 2 Active ergocalciferol (VITAMIN D) 62016 UNIT Capsule take 1 capsule (19661MARVB) by oral route every week 2 Active escitalopram (LEXAPRO) 20 MG Tablet 20 mg. 2 Active famotidine (PEPCID) 20 MG Tablet 20 mg. 2 Active Levothyroxine Sodium 25 MCG Capsule 25 mcg. 2 Active Levothyroxine Sodium 50 MCG Capsule 50 mcg. 2 Active magnesium hydroxide (MILK OF MAGNESIA) 400 MG/5ML Suspension take 30 milliliter by oral route every day as needed, followed by a full glass (8 oz) of liquid 2 Active meclizine (ANTIVERT) 12.5 MG Tablet 12.5 mg. 2 Active metroNIDAZOLE (FLAGYL) 500 MG Tablet 500 mg. 6 Active sodium sulfate-potassi um sulfate-magnesi um sulf (SUPREP) 17.5-3.13-1.6 GM/177ML Solution TAKE DIRECTED 6 Active neomycin 500 MG Tablet 500 mg. 6 Active traZODone (DESYREL) 50 MG Tablet 50 mg. 2 Active HYDROcodone-agustina taminophen (Pontiac) 5-325 MG TabletIndicatio ns:Pain Take 1 Tablet by mouth every 6 hours as needed for Moderate or more severe pain. Indications: Pain 12 Tablet 4 Active FLUoxetine (PROzac) 10 MG Capsule 10 mg daily. 4 Active FLUoxetine (PROzac) 20 MG Capsule 20 mg daily. 4 Active meloxicam (MOBIC) 7.5 MG Tablet 7.5 mg daily. 4 Active Refresh Celluvisc 1 % Gel 4 Active prednisoLONE acetate (PRED FORTE) 1 % Suspension 4 Active tiZANidine (ZANAFLEX) 2 MG Tablet 2 mg 2 times daily. 4 Active Active Problems Problem Noted Date Diagnosed Date Mild intellectual disability 01/31/2019 GERD (gastroesophageal reflux disease) 9 Constipation 01/31/2019 Insomnia 01/31/2019 Hypothyroidism 01/31/2019 Cataract 01/31/2019 Hypertension 01/31/2019 Allergic conjunctivitis of both eyes 01/31/2019 Depression 01/31/2019 Seasonal allergies 01/31/2019 Vitamin D deficiency 01/31/2019 Hyperlipidemia 01/31/2019 Hearing impaired person, bilateral Resolved Problems Problem Noted Date Diagnosed Date Resolved Date Ileus 09/07/2022 06/28/2023 Diarrhea 09/07/2022 06/28/2023 Pancreatitis 01/31/2019 06/18/2020 Encounters Date Type Department Care Team Description 04/11/2025 [facility] [address] [place] [address] [place] [address] John Delgado MD Visit for screening mammogram (Primary Dx) 03/25/2025 Lab Requisition [facility] Services [address] [place] [address] John Delgado MD from Last 3 Months Immunizations Immunization Administration Dates Next Due Covid-19, Mrna, Lnp-s, Pf, 3 0 Mcg/0.3 Ml Dose (Kangsheng Chuangxiang) 12/29/2020,12/04/2020 Influenza Vaccine 08/06/2022,08/24/2018,08/06/20 17 Influenza Vaccine greater than 3 yrs 08/04/2016 Influenza Vaccine, Quadrivalent, PF 08/25/2020 Zoster Vaccine Recombinant 04/21/2020,12/12/2019 Family History Medical History Relation Name Comments Heart Attack Brother 1 Heart Surgery Brother 1 Stent placed No Known Problems Brother 2 Cancer Father Lung Cancer Father No Known Problems Maternal Grandfather No Known Problems Maternal Grandmother Cancer Mother Lung Cancer Mother No Known Problems Paternal Grandfather No Known Problems Paternal Grandmother No Known Problems Sister 1 No Known Problems Sister 2 Relation Name Status Comments Brother 1 Alive Brother 2 Alive Father Maternal Grandfather Maternal Grandmother Mother Paternal Grandfather Paternal Grandmother Sister 1 Alive Sister 2 Alive Social History Tobacco Use Types Packs/Day Years Used Date Smoking Tobacco: Never Smokeless Tobacco: Never Tobacco Cessation:Counseling Given: Not Answered Alcohol Use Standard Drinks/Week Comments No 0 (1 standard drink = 0.6 oz pur e alcohol) Comments No Sex and Gender Information Value Date Recorded Sex Assigned at Not on file Legal Sex Female 10:37 PM CDT Gender Identity Not on file Sexual Orientation Not on file Last Filed Vital Signs Vital Sign Reading Time Taken Comments Blood Pressure 111/65 09/12/2024 2:50 PM SERVICE CLEANER Pulse 81 09/12/2024 2:50 PM SERVICE CLEANER Temperature 36.5 C (97.7 F) 09/12/2024 2:50 PM SERVICE CLEANER Respiratory Rate 19 09/12/2024 2:50 PM SERVICE CLEANER Oxygen Saturation 95% 09/12/2024 2:50 PM SERVICE CLEANER Inhaled Oxygen Concentration - - Weight 72.6 kg (160 lb) 09/05/2024 1:23 PM SERVICE CLEANER Height 167.6 cm (5' 6) 09/12/2024 2:50 PM SERVICE CLEANER Body Mass Index 25.82 09/05/2024 1:23 PM SERVICE CLEANER Plan of Treatment Upcoming Encounters Date Type Department Care Team (Late st Contact Info) Description 08/05/2025 2:45 PM CDT Appointment [facility] Mammography [address] [facility] [place] [address] John Delgado MD [address] [place] [address] [address] [place] [address] Discharge Disposition: Discharged to home or Selfcare Health Maintenance Due Date Last Done Comments TdaP Immunization 1960 Cologuard 01/31/2004 Immunochemical Fecal Occult Blood 01/31/2004 Pneumococcal Immunization (50+ years) (1 of 1 - PCV) 2009 Influenza Immunization (#1) 06/24/202507/24, 08/25/2020, 08/24/2018, Additional history exists Mammogram 08/03/2025 08/03/2024, 04/23, 01/29/2022, Additional history exists DEXA Bone Density 10/10/2025 10/10/2023, , 09/12/2018, Additional history exists Colonoscopy 09/10/2032 09/10/2022, 11/2021, 04/06/2022, Additional history exists Colorectal Cancer Screening 09/10/2032 Respiratory Syncytial Virus (RSV) Immunization (Adult) (1 - 1-dose 75+ series) 2034 Zoster Immunization Completed 04/21/2020, 0 SARS-COV-2 Immunization Discontinued 12/29/2020, 12/04 Hepatitis B Immunization Aged Out No longer eligible based on patient's age to complete this topic Hepatitis C Virus (HCV) Screening Discontinued Human Papillomavirus (HPV) Immunization Aged Out No longer eligible based on patient's age to complete this topic Meningococcal Immunization (ACWY) Aged Out No longer eligible based on patient's age to complete this topic Rotavirus Immunization Aged Out No lo nger eligible based on patient's age to complete this topic Procedures Procedure Name Priority Date/Time Associated Diagnosis Comments HERPES ZOSTER (VARICELLA) IGG Routine 03/25/2025 6:08 AM CDT RUBEOLA (MEASLES) IGG Routine 03/25/2025 6:08 AM CDT RUBELLA IMMUNITY IGG Routine 03/25/2025 6:08 AM CDT MUMPS IGG Routine 03/25/2025 6:08 AM CDT MMRV PANEL Routine 03/25/2025 6:08 AM CDT [facility] SCREENING BILATERAL DIGITAL W CAD Routine 08/03/2024 12:09 PM CDT Visit for screening mammogram [facility] BONE DENSITOMETRY AXIAL SKELETON Routine 10/10/2023 9:35 AM SERVICE CLEANER Postmenopausal from Last 3 Months or Most Recently Relevant to Health Maintenance Results * MUMPS IGG (03/25/2025 6:08 AM CDT) Mumps Ab IgG 4.3 >=1.1 AI 03/25/2025 3:43 PM CDT [facility] Blood Venipuncture / Unknown 03/25/2025 6:08 AM CDT 03/25/2025 8:33 AM CDT Narrative [facility] - 03/25/2025 3:43 PM CDT <= 0.8 Negative. No detectable Mumps IgG antibody. 0.9 - 1.0 Equivocal >=1.1 Positive Antibody testing was performed by multiplex flow immunoassay on the K[employer] platform. us John Delgado MD IMMUNOLOGY ORDERABLES Final Re sult [facility] [address] [place] [address], * HERPES ZOSTER (VARICELLA) IGG (03/25/2025 6:08 AM CDT) VARICELLA ZOSTER IGG 5.8 >=1.1 AI 03/25/2025 3:43 PM CDT [facility] Blood Venipuncture / Unknown 03/25/2025 6:08 AM CDT 03/25/2025 8:33 AM CDT Narrative [facility] - 03/25/2025 3:43 PM CDT <= 0.8 Negative. No detectable VZV IgG antibody. 0.9 - 1.0 Equivocal >=1.1 Positive Antibody testing was performed by multiplex flow immunoassay on the BioPlex platform. John Delgado MD IMMUNOLOGY ORDERABLES Final Re sult Performing Organization Address City/[facility]/ZIP Co de Phone Number [facility] [address] [place] [address], [place] * RUBEOLA (MEASLES) IGG (03/25/2025 6:08 AM CDT) MEASLES AB IGG 5.4 >=1.1 AI 03/25/2025 3:43 PM CDT [facility] Blood Venipuncture / Unknown 03/25/2025 6:08 AM CDT 03/25/2025 8:33 AM CDT Narrative [facility] - 03/25/2025 3:43 PM CDT <= 0.8 Negative. No detectable Measles IgG antibody. 0.9 - 1.0 Equivocal >=1.1 Positive Antibody testing was performed by multiplex flow immunoassay on the BioPlex platform. John Delgado MD IMMUNOLOGY ORDERABLES Final Re sult [facility] [address] [place] [address], [place] * RUBELLA IMMUNITY IGG (03/25/2025 6:08 AM CDT) RUBELLA IMMUNITY Immune Immune, Invalid 03/25/2025 3:43 PM CDT [facility] RUBELLA IGG QUANT 2.00 >=1.0 AI AI 03/25/2025 3:43 PM CDT [facility] Blood Venipuncture / Unknown 03/25/2025 6:08 AM CDT 03/25/2025 8:33 AM CDT Narrative [facility] - 03/25/2025 3:43 PM CDT Antibody testing was performed by multiplex flow immunoassay on the BioPlex platform. us John Delgado MD CHEMISTRY ORDERABLES Final Res ult [facility] [address] [place] [address], [place] * [facility] SCREENING BILATERAL DIGITAL W CAD (08/03/2024 12:09 PM CDT) Anatomical Region Laterality Modality breast Bilateral Mammography 08/03/2024 11:4 2 AM CDT Narrative 08/04/2024 7:22 AM CDT - [facility] SCREENING BILATERAL DIGITAL W CAD BILATERAL DIGITAL SCREENING MAMMOGRAM WITH CAD WITH MEDIOLATERAL OBLIQUE CRANIOCAUDAL: 08/03/2024 The study was acquired using digital technology and interpreted from soft copy. Current study was also evaluated with ICAD version 7.2. CLINICAL: Routine screening. Patient has no complaints. No personal history of cancer. No family history of breast cancer. COMPARISONS: Comparison is made to exams dated: 05/04/2023, 01/29/2022, and 01/01/2021 [facility]. BREAST TISSUE:There are scattered areas of fibroglandular density. FINDINGS: No significant masses, calcifications, or other findings are seen in either breast. There has been no significant interval change. IMPRESSION: NEGATIVE There is no mammographic evidence of malignancy. A 1 year screening mammogram is recommended. A letter will be sent to the patient with these results. The patient will be entered into a reminder system with a target due date of 1 year for her next screening exam. Electronically signed by: Mary Anne harvey/mirella:08/03/2024 15:53:57 On Air Director(s): RT Austin(R)(M), [facility] letter sent: Normal Exam Reading location: [place] Mammogram BI-RADS: Category 1: Negative Procedure Note Mary Anne Jennings MD - 08/04/2024 - [facility] SCREENING BILATERAL DIGITAL W CAD BILATERAL DIGITAL SCREENING MAMMOGRAM WITH CAD WITH MEDIOLATERAL OBLIQUE CRANIOCAUDAL: 08/03/2024 The study was acquired using digital technology and interpreted from soft copy. Current study was also evaluated with ICAD version 7.2. CLINICAL: Routine screening. Patient has no complaints. No personal history of cancer. No family history of breast cancer. COMPARISONS: Comparison is made to exams dated: 05/04/2023, 01/29/2022, and 01/01/2021 [facility]. BREAST TISSUE:There are scattered areas of fibroglandular density. FINDINGS: No significant masses, calcifications, or other findings are seen in either breast. There has been no significant interval change. IMPRESSION: NEGATIVE There is no mammographic evidence of malignancy. A 1 year screening mammogram is recommended. A letter will be sent to the patient with these results. The patient will be entered into a reminder system with a target due date of 1 year for her next screening exam. Electronically signed by: Mary Anne harvey/mirella:08/03/2024 15:53:57 On Air Director(s): RT Austin(R)(M), [facility] letter sent: Normal Exam Reading location: [place] Mammogram BI-RADS: Category 1: Negative Nani Cloud MD IMG MAMMO ORDERABLES Final Result * [facility] BONE DENSITOMETRY AXIAL SKELETON (10/10/2023 9:35 AM SERVICE CLEANER) Anatomical Region Laterality Modality BODY N/A Computed Radiogr aphy 10/10/2023 10:0 7 AM SERVICE CLEANER Impressions 10/10/2023 10:10 AM SERVICE CLEANER IMPRESSION: Low Bone Mass. REFERENCE: Bone mineral density: Normal (T-score above or = -1.0) Low bone mass (T-score between -1.0 and -2.5) replaces the previously used term osteopenia Osteoporosis (T-score = or below -2.5) Medical evaluation for secondary causes of low bone mineral density may be appropriate. FRAX is a World Health Organization validated fracture risk assessment tool that calculates a person's 10 year probability of a major osteoporosis related fracture and hip fracture. According to the National Osteoporosis Foundation guidelines, postmenopausal women and men age 50 or older with low bone mass and a 10 year probability of a major osteoporosis related fracture = or greater than 20% or a 10 year probability of a hip fracture = or greater than 3% should be considered for treatment. For further information, including treatment recommendations, please refer to the 2019 ISCD Official Positions (http://www.iscd.org) and the NOF's Clinician's Guide to Prevention and Treatment of Osteoporosis (http://www.nof.org/professionals/clinical-guidelines) Narrative 10/10/2023 10:10 AM SERVICE CLEANER EXAM DESCRIPTION: [facility] BONE DENSITOMETRY AXIAL SKELETON REASON FOR STUDY: 63 y/o year old F with given history of: Postmenopausal Aperture Mask Etcher/Model: PECO Pallet (S/N [id number]) CLINICAL INFORMATION: Current height: 59 inches Maximum height: 61 inches Weight: 160 pounds Risk factors: Postmenopausal, adult fracture COMPARISON: 11/06/2020, 09/12/2018 FINDINGS: AP LUMBAR SPINE L1-L4: Total BMD is 1.019 g/cm2 T-score is -1.4 This is increased in comparison to prior exam which is not statistically significant. LEFT HIP: Total BMD is 0.948 g/cm2 T-score is -0.5 This is increased in comparison to prior exam which is not statistically significant. Femoral neck BMD is 0.700 g/cm2 T-score is -2.4 FRAX: 10 year risk for a major osteoporotic fracture is 19.8 %, 10 year risk for a hip fracture is 4.0 % THIS IS AN ELECTRONICALLY VERIFIED FINAL REPORT 10/10/2023 10:07 AM - Electronically signed by Mua Hernandez M.D. MF: TAI Report ID: [id number] Reading Location: [id number] Procedure Note Mau Hernandez MD - 10/10/2023 EXAM DESCRIPTION: [facility] BONE DENSITOMETRY AXIAL SKELETON REASON FOR STUDY: 63 y/o year old F with given history of: Postmenopausal Aperture Mask Etcher/Model: PECO Pallet (S/N [id number]) CLINICAL INFORMATION: Current height: 59 inches Maximum height: 61 inches Weight: 160 pounds Risk factors: Postmenopausal, adult fracture COMPARISON: 11/06/2020, 09/12/2018 FINDINGS: AP LUMBAR SPINE L1-L4: Total BMD is 1.019 g/cm2 T-score is -1.4 This is increased in comparison to prior exam which is not statistically significant. LEFT HIP: Total BMD is 0.948 g/cm2 T-score is -0.5 This is increased in comparison to prior exam which is not statistically significant. Femoral neck BMD is 0.700 g/cm2 T-score is -2.4 FRAX: 10 year risk for a major osteoporotic fracture is 19.8 %, 10 year risk for a hip fracture is 4.0 % THIS IS AN ELECTRONICALLY VERIFIED FINAL REPORT 10/10/2023 10:07 AM - Electronically signed by Mau Hernandez M.D. MF: TAI Report ID: [id number] Reading Location: [place] [address] IMPRESSION: Low Bone Mass. REFERENCE: Bone mineral density: Normal (T-score above or = -1.0) Low bone mass (T-score between -1.0 and -2.5) replaces the previously used term osteopenia Osteoporosis (T-score = or below -2.5) Medical evaluation for secondary causes of low bone mineral density may be appropriate. FRAX is a World Health Organization validated fracture risk assessment tool that calculates a person's 10 year probability of a major osteoporosis related fracture and hip fracture. According to the National Osteoporosis Foundation guidelines, postmenopausal women and men age 50 or older with low bone mass and a 10 year probability of a major osteoporosis related fracture = or greater than 20% or a 10 year probability of a hip fracture = or greater than 3% should be considered for treatment. For further information, including treatment recommendations, please refer to the 2019 ISCD Official Positions (http://www.iscd.org) and the NOF's Clinician's Guide to Prevention and Treatment of Osteoporosis (http://www.nof.org/professionals/clinical-guidelines) us Ted Reyes MD IMG DEXA ORDERABLES Final Result from Last 3 Months or Most Recently Relevant to Health Maintenance Insurance MEDICAID [place] MEDICARE Member Subscriber Plan / Payer (Ef fective 1982-Present) Name:Loreta Crenshaw Member ID:[id number] Relation to Subscriber:Self Name:Loreta Crenshaw Subscriber ID:[id number] Payer ID:[id number] Group ID:Not on file Type:Not on file Address: [facility] [address] [facility] [place]ious [place] [facility] [place] [address] Advance Directives * Full Code (Latest Code Status on File) Date Activated Date Inactivated Comments 09/07/2022 5:42 PM 09/11/2022 4:19 PM CPR-Full T reatment: FULL ARREST: Attempt Resuscitation/CPR wit intubation and mechanical ventilation. PRE-ARREST: Use entire range of life support measures to stabilize the patient. Care Teams Night Assistant Relationship Specialty Start Date End Date John Delgado MD [address] [facility] [address] [place] [address] PCP - General Family Medicine 04/11/25 Tapan Guo MD [address] [facility] [address] [place] [address] Consulting Physician Colon and Rectal Surgery 09/21/22
--- OUTSIDE RECORDS SUMMARY | 2025-05-15 09:25 | XMS_ITS | Encounter Summary ---
Author Organization [facility] Address [address] [place] [address] Phone Care Team Providers Care Etl Architect Name Role Phone Vanessa Hyman MD Primary Care Provider [phone] Tapan Guo MD Unavailable Ted Reyes MD Primary Care Provider [phone] Nani Cloud MD Primary Care Provider + [phone] Provider, None Primary Care Provider John Villatoro MD Primary Care Provider [phone] Encounter Details Date Type Department Care Team (Late st Contact Info) Description 11/04/2021 Lab [facility]quisition [facility] 1 [place] [id number] John Delgado MD [address] [place] [address] [address] [place] [address] Encounter for screening for COVID-19 Social History [...] [facility] [place] [facility] [address] [place] [address] John Delgado MD [address] [place] [address] [address] [place] [address] Discharge Disposition: Discharged to home or Selfcare documented as of this encounter Procedures Procedure Name Priority Date/Time Associated Diagnosis Comments SARS-COV-2 BY MOLECULAR Routine 11/04/2021 8:50 AM STRIP DEBURRER Encounter for screening for COVID-19 documented in this encounter Results * SARS-COV-2 BY MOLECULAR (11/04/2021 8:50 AM STRIP DEBURRER) SARSCOV2 NOT DETECTED (Referen ce Range for this test is Not Detected ) [facility] THERMOFISHER FAST DX 11/06/2021 10:53 AM STRIP DEBURRER [facility] Comment:This test was perfor med by a RT-PCR method. Other Non-Phlebotomy Collection / Unknown 11/04/2021 8:50 AM STRIP DEBURRER 11/04/2021 11:43 AM STRIP DEBURRER Narrative [facility] - 11/06/2021 10:53 AM STRIP DEBURRER Authorized Fact Sheets about this test for providers and patients are available at: https://www.fda.gov/medical-devices/rxreobhmq-vdwfcatekf-ztzdgwy-devices/emergen -us e-authorizations us John Delgado MD MICROBIOLOGY - GENERAL ORDERAB LES Final Result [facility] [address] [place] [address], documented in this encounter Visit Diagnoses Diagnosis Encounter for screening for COVID-19 documented in this encounter Additional Health Concerns Infection Onset Date Last Indicated Resolved Time COVID - 19 07/15/2021 12/02/2021 12/02/2021 11:4 9 PM STRIP DEBURRER COVID - 19 Confirmed 12/02/2021 12/02/2021 022 12:16 AM STRIP DEBURRER COVID - 19 12/16/2021 12/16/2021 01/05/2022 12:1 8 AM CDT COVID - 19 03/03/2022 09/01/2022 09/08/2022 8:21 AM STRIP DEBURRER COVID - 19 10/20/2022 01/05/2023 01/15/2023 12:1 6 AM CDT documented as of this encounter Care Teams Etl Architect Relationship Specialty Start Date End Date Vanessa Hyman MD PCP - General Family Medicine 09/01/15 10/23/22 Ted Reyes MD #[address] [address] PCP - General Family Medicine 10/24/22 12/08/23 Nani Cloud MD [address] [place] [address] PCP - General Family Medicine 02/09/24 01/10/25 Provider, None [place] PCP - General 03/25/25 04/10/25 John Delgado MD [address] [place] [address] [address] [place] [address] PCP - General Family Medicine 04/11/25 Tapan Guo MD #[address] [address] Consulting Physician Colon and Rectal Surgery 09/21/22 documented as of this encounter
--- OUTSIDE RECORDS SUMMARY | 2025-05-15 09:25 | XMS_ITS | Encounter Summary ---
Author Organization [facility] Address [address] [place] [address] Phone Care Team Providers Care Licensed Audiologist Name Role Phone Tapan Guo MD Unavailable Provider, None Primary Care Provider UnavailJohn Zacarias MD Primary Care Provider Encounter Details Date Type Department Care Team (Late Contact Info) Description 03/25/2025 Lab Requisition [facility] [address] [place] [phone] John Delgado MD [address] [place] [address] [address] [place] [address] Social History Tobacco Use Types Packs/Day Years [...] Encounters Date Type Department Care Team (Late Contact Info) Description 08/05/2025 2:45 PM CDT Appointment [facility] [address] [place] [phone] John Delgado MD [address] [place] [address] [address] [place] [address] Discharge Disposition: Discharged to home or Selfcare documented as of this encounter Procedures Procedure Name Priority Date/Time Associated Diagnosis Comments MMRV PANEL Routine 03/25/2025 6:08 AM CDT MUMPS IGG Routine 03/25/2025 6:08 AM CDT HERPES ZOSTER (VARICELLA) IGG Routine 03/25/2025 6:08 AM CDT RUBEOLA (MEASLES) IGG Routine 03/25/2025 6:08 AM CDT RUBELLA IMMUNITY IGG Routine 03/25/2025 6:08 AM CDT documented in this encounter Results * HERPES ZOSTER (VARICELLA) IGG (03/25/2025 6:08 AM CDT) VARICELLA ZOSTER IGG 5.8 >=1.1 AI 03/25/2025 3:43 PM CDT [facility] Blood Venipuncture / Unknown 03/25/2025 6:08 AM CDT 03/25/2025 8:33 AM CDT Narrative [facility] - 03/25/2025 3:43 PM CDT <= 0.8 Negative. No detectable VZV IgG antibody. 0.9 - 1.0 Equivocal >=1.1 Positive Antibody testing was performed by multiplex flow immunoassay on the Kinetic platform. us John Delgado MD IMMUNOLOGY ORDERABLES Final Re sult [facility] [address] [place] [address], * RUBEOLA (MEASLES) IGG (03/25/2025 6:08 AM CDT) MEASLES AB IGG 5.4 >=1.1 AI 03/25/2025 3:43 PM CDT [facility] Blood Venipuncture / Unknown 03/25/2025 6:08 AM CDT 03/25/2025 8:33 AM CDT Narrative [facility] - 03/25/2025 3:43 PM CDT <= 0.8 Negative. No detectable Measles IgG antibody. 0.9 - 1.0 Equivocal >=1.1 Positive Antibody testing was performed by multiplex flow immunoassay on the BioPlex platform. John Delgado MD IMMUNOLOGY ORDERABLES Final Re sult Performing Organization Address [facility] Co de Phone Number [facility] [address] [place] [address], [place] * RUBELLA IMMUNITY IGG (03/25/2025 6:08 AM CDT) RUBELLA IMMUNITY Immune Immune, Invalid 03/25/2025 3:43 PM CDT [facility] RUBELLA IGG QUANT 2.00 >=1.0 AI AI 03/25/2025 3:43 PM CDT [facility] Blood Venipuncture / Unknown 03/25/2025 6:08 AM CDT 03/25/2025 8:33 AM CDT Narrative [facility] - 03/25/2025 3:43 PM CDT Antibody testing was performed by multiplex flow immunoassay on the BioPlex platform. John Delgado MD CHEMISTRY ORDERABLES Final Res ult Performing Organization Address [facility]/ZIP Co de Phone Number [facility] [address] [place] [address], [place] * MUMPS IGG (03/25/2025 6:08 AM CDT) Mumps Ab IgG 4.3 >=1.1 AI 03/25/2025 3:43 PM CDT [facility] Blood Venipuncture / Unknown 03/25/2025 6:08 AM CDT 03/25/2025 8:33 AM CDT Narrative [facility] - 03/25/2025 3:43 PM CDT <= 0.8 Negative. No detectable Mumps IgG antibody. 0.9 - 1.0 Equivocal >=1.1 Positive Antibody testing was performed by multiplex flow immunoassay on the Kinetic platform. us John Delgado MD IMMUNOLOGY ORDERABLES Final Re sult [facility] [address] [place] [address], documented in this encounter Visit Diagnoses Not on filedocumented in this encounter Care Teams Licensed Audiologist Relationship Specialty Start Date End Date Provider, None [place] PCP - General 03/25/25 04/10/25 John Delgado MD [address] [facility] [address] [facility] [place] [address] PCP - General Family Medicine 04/11/25 Tapan Guo MD [address] [facility] [address] [place] [address] Consulting Physician Colon and Rectal Surgery 09/21/22 documented as of this encounter
== END 2025-05-15 09:09 | disposition home or self-care (01) ==
LOC: ANHBWCAUD 09:10
PROVIDERS: PCP Family Medicine; Visit Provider Family Medicine
DX: H91.3 Deaf nonspeaking, not elsewhere classified (principal)
CPT/HCPCS: 92557; 92567